=== PATIENT | male | born 1980 | race Caucasian/White ===

== ENCOUNTER → 2019-03-18 | Outpatient (CLI) | payer OTHER ==
[~2019-03-18] MED LIST: AMIT25TA9 PO; AMOX-358 PO; CEPH500C PO; CIPR500T4 PO; ESOM20CA PO; HYDR-3455 PO; IBUP800T26 PO; METR-145 PO; METR500T PO; ONDA8TAB13 PO; SULF1TAB35 PO; TRM50T PO
--- NOTE | 2019-03-18 10:20 | Diagnostic Imaging Report ---
PATIENT HISTORY: RIGHT HIP PAIN. TECHNIQUE: 2 views of the right hip COMPARISON: None FINDINGS: No acute fracture or dislocation is seen in the right hip. Alignment appears normal. Joint spaces are preserved. IMPRESSION: No acute osseous abnormality is seen in the right hip. Dictated by: Dictated on workstation # [id number]
== END ==
LOC: RAD FS 09:31
PROVIDERS: ATTEND Nurse Practitioner Family
DX: M25.551 Pain in right hip (principal)
CPT/HCPCS: 73502

== ENCOUNTER 2019-09-29 08:41 | Emergency (ER) | payer OTHER ==
[~2019-09-29] VITALS: Ht 177.8 cm; Wt 76.0 kg
[2019-09-29 08:43] VITALS: BP 117/72
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
--- OUTSIDE RECORDS SUMMARY | 2019-09-29 08:46 | XMS REPORT ---
Author Author Duane Lopez Organization [facility] Address [address] [place] [address] Care Team Providers Care Surface Water Technician Name Role Phone HUANG Lopez Unavailable PROBLEMS Type Condition ICD9-CM Code UQH71-SN Code Onset Dates Condition S tatus SNOMED Code Problem GERD (gastroesophageal reflux disease) K21.9 Active 145923305 Problem Anxiety F41.9 Active 44071781 Problem Cigarette nicotine dependence without complication F17.210 Active 19837314 Problem Cigarette nicotine dependence without complication F17.210 Active 80143578 Problem Insomnia G47.00 Active 374468389 Problem Depression F32.9 Active 898820372 Problem Paradoxical insomnia F51.03 Active 431138673 Problem Psoriasis L40.9 Active 3853641 ALLERGIES No Information ENCOUNTERS Encounter Location Date Diagnosis [address] [id number] [address] Jun, Paradoxical insomnia F51.03 and Anxiety F41.[address] [id number] [address] Jun, [address] [id number] [address] May, [address] [id number], [place] [address] May, [address] [id number] [address] May, Paradoxical insomnia F51.03 and Eczema, dyshidrotic L30.[address] [id number] [address] Apr, Eczema, dyshidrotic L30.1 an d Cigarette nicotine dependence without complication F17.210 [facility] [place] [address] [id number] [address] Mar, Eczema, dyshidrotic L30.1 an d Encounter for immunization Z23 [address] [id number], [place] [address] Mar, [address] [id number] [address] Mar, [address] [id number] [address] Feb, Dermatitis L30.[address] [id number] [address] Feb, [address] [id number] [address] Feb, Right hip pain M25.551 and D ermatitis L30.9 [facility] [address] [id number] [place] [address] Feb, Contact dermatitis, unspecif ied contact dermatitis type, unspecified trigger L25.9 [facility] [address] [id number] [place] [address] Nov, Pain of right eye H57.11 and Iritis H20.[address] [id number] [address] Nov, Paradoxical insomnia F51.[address] [id number] [address] September, Muscle spasm of back M62.830 [facility] [address] [facility] [id number] [address] [place] [address] Apr, Insomnia G47.00 ; Anxiety F4 1.9 and GERD (gastroesophageal reflux disease) K21.9 [facility] [address] [facility] [id number] [address] [place] [address] Mar, [facility] [address] [id number] [address] [place] [address], [place] [address] Aug, [facility] [address] [id number] [address] [place] [address], [place] [address] Aug, [facility] [address] [id number] [address] [place] [address], [place] [address] Oct, [facility] [address] [id number] [address] [place] [address], [place] [address] Oct, [facility] [address] [id number] [address] [place] [address], [place] [address] Oct, [facility] [address] [id number] [address] [place] [address], [place] [address] Oct, [facility] [address] [id number] [address] [place] [address], [place] [address] Oct, [facility] [address] [id number] [address] [place] [address], [place] [address] Oct, [facility] [address] [id number] [address] [place] [address], [place] [address] Oct, [facility] [address] [id number] [address] [place] [address], [place] [address] Oct, [facility] [address] [id number] [address] [place] [address], [place] [address] September, [facility] [address] [id number] [address] [place] [address], [place] [address] September, [facility] [address] [id number] [address] [place] [address], [place] [address] September, [facility] [address] [id number] [address] [place] [address], [place] [address] September, [facility] [address] [id number] [address] [place] [address], [place] [address] September, [facility] [address] [id number] [address] [place] [address], [place] [address] September, [facility] [address] [id number] [address] [place] [address], [place] [address] Jul, [facility] [address] [id number] [address] [place] [address], [place] [address] Jul, [facility] [address] [id number] [address] [place] [address], [place] [address] Jun, [facility] [address] [id number] [address] [place] [address], [place] [address] Jun, [facility] [address] [id number] [address] [place] [address], [place] [address] Jun, [facility] [address] [id number] [address] [place] [address], [place] [address] Jun, [facility] [address] [id number] [address] [place] [address], [place] [address] Jun, [facility] [address] [id number] [address] [place] [address], [place] [address] Jun, [facility] [address] [id number] [address] [place] [address], [place] [address] May, [facility] [address] [id number] [address] [place] [address], [place] [address] May, [facility] [address] [id number] [address] [place] [address], [place] [address] May, [facility] [address] [id number] [address] [place] [address], [place] [address] May, [facility] [address] [id number] [address] [place] [address], [place] [address] May, [facility] [address] [id number] [address] [place] [address], [place] [address] May, [facility] [address] [id number] [address] [place] [address], [place] [address] May, [facility] [address] [id number] [address] [place] [address], [place] [address] May, [facility] [address] [id number] [address] [place] [address], [place] [address] May, [facility] [address] [id number] [address] [place] [address], [place] [address] May, [facility] [address] [id number] [address] [place] [address], [place] [address] May, [facility] [address] [id number] [address] [place] [address], [place] [address] May, [facility] [address] [id number] [address] [place] [address], [place] [address] May, [facility] [address] [id number] [address] [place] [address], [place] [address] May, [facility] [address] [id number] [address] [place] [address], [place] [address] Apr, [facility] [address] [id number] [address] [place] [address], [place] [address] Apr, [facility] [address] [id number] [address] [place] [address], [place] [address] Apr, [facility] [address] [id number] [address] [place] [address], [place] [address] Apr, [facility] [address] [id number] [address] [place] [address], [place] [address] Apr, [facility] [address] [id number] [address] [place] [address], [place] [address] Apr, [facility] [address] [id number] [address] [place] [address], [place] [address] Apr, [facility] [address] [id number] [address] [place] [address], [place] [address] 05 Apr, 2013 [facility] [address] [id number] [address] [place] [address] Mar, [facility] [address] [id number] [address] [place] [address] Mar, [facility] [address] [id number] [address] [place] [address] Mar, [facility] [address] [id number] [address] [place] [address] Mar, [facility] [address] [id number] [address] [place] [address] Mar, [facility] [address] [id number] [address] [place] [address] Dec, [facility] [address] [id number] [address] [place] [phone] Dec, [facility] [address] [id number] [address] [place] [phone] Dec, [facility] [address] [id number] [address] [place] [phone] Dec, [facility] [address] [id number] [address] [place] [address] Dec, [facility] [address] [id number] [address] [place] [phone] Nov, [facility] [address] [id number] [address] [place] [phone] Nov, [facility] [address] [id number] [address] [place] [phone] Nov, [facility] [address] [id number] [address] [place] [phone] Oct, IMMUNIZATIONS No Known Immunizations SOCIAL HISTORY Never Assessed REASON FOR VISIT PLAN OF CARE VITAL SIGNS MEDICATIONS No Known Medications RESULTS No Results PROCEDURES No Known procedures INSTRUCTIONS MEDICATIONS ADMINISTERED No Known Medications MEDICAL (GENERAL) HISTORY Type Description Date Medical History Depression Medical History GERD (gastroesophageal reflux disease) Medical History Insomnia Medical History Anxiety Hospitalization History cyst
--- OUTSIDE RECORDS SUMMARY | 2019-09-29 08:46 | XMS REPORT ---
Author Author Migration, Boutte Doctor Organization [facility] Address Unknown Phone Unavailable Care Team Providers Care Director Network Development Name Role Phone Migration, Doctor Unavailable Unavailable PROBLEMS Type Condition ICD9-CM Code ABD21-XZ Code Onset Dates Condition S tatus SNOMED Code Problem GERD (gastroesophageal reflux disease) K21.9 Active 873805603 Problem Anxiety F41.9 Active 20848922 Problem Cigarette nicotine dependence without complication F17.210 Active 70557599 Problem Cigarette nicotine dependence without complication F17.210 Active 08309178 Problem Insomnia G47.00 Active 008430552 Problem Depression F32.9 Active 617362635 Problem Paradoxical insomnia F51.03 Active 199050090 Problem Psoriasis L40.9 Active 1069377 ALLERGIES No Information ENCOUNTERS Encounter Location Date Diagnosis [address] 340 [id number] [address] Jun, Paradoxical insomnia F51.03 and Anxiety F41.[id number] [place] [address] Jun, [address] 340 [id number], [place] [address] May, [address] [id number], [place] [address] May, [address] 340 [id number], [place] [address] May, Paradoxical insomnia F51.03 and Eczema, dyshidrotic L30.[address] [id number], [place] [address] Apr, Eczema, dyshidrotic L30.1 an d Cigarette nicotine dependence without complication F17.[address] 340 [id number], [place] [address] Mar, Eczema, dyshidrotic L30.1 an d Encounter for immunization Z23 [address] 340B [id number], [place] [address] Mar, [facility] [address] 340B [id number], [place] [address] Mar, [address] 340B [id number], [place] [address] Feb, Dermatitis L30.[address] 340B [id number], [place] [address] Feb, [address] 340B [id number], [place] [address] Feb, Right hip pain M25.551 and D ermatitis L30.9 [facility] [address] 340 [id number] [address] Feb, Contact dermatitis, unspecif ied contact dermatitis type, unspecified trigger L25.9 [facility] [address] 340 [id number], [place] [address] Nov, Pain of right eye H57.11 and Iritis H20.[address] 340B [id number], [place] [address] Nov, Paradoxical insomnia F51.[address] 340 [id number], [place] [address] September, Muscle spasm of back M62.830 [facility] [address] [facility] [id number] [address] [place] [address] Apr, Insomnia G47.00 ; Anxiety F4 1.9 and GERD (gastroesophageal reflux disease) K21.9 [facility] [address] [facility] [id number] [address] [place] [address] Mar, [facility] [address] [facility] [id number] [address] [place] [address] Aug, [facility] [address] [id number] [address] [place] [address], [place] [address] Aug, [facility] [address] [id number] [address] [place] [address], [place] [address] Oct, [facility] [address] [id number] [address] [place] [address], [place] [address] Oct, [facility] [address] [id number] [address] [place] [address], [place] [address] Oct, [facility] [address] [id number] [address] [place] [address], [place] [address] Oct, [facility] [address] [id number] [address] [place] [address], [place] [address] Oct, [facility] [address] [id number] [address] [place] [address], [place] [address] Oct, [facility] [address] [id number] [address] [place] [address], [place] [address] Oct, [facility] [address] [id number] [address] [place] [address], [place] [address] Oct, [facility] [address] [id number] [address] [place] [address], [place] [address] September, [facility] [address] [id number] [address] [place] [address], [place] [address] September, [facility] [address] [id number] [address] [place] [address], [place] [address] September, [facility] [address] [id number] [address] [place] [address], [place] [address] September, [facility] [address] [id number] [address] [place] [address], [place] [address] September, [facility] [address] [id number] [address] [place] [address], [place] [address] September, [facility] [address] [id number] [address] [place] [address], [place] [address] Jul, [facility] [address] [id number] [address] [place] [address], [place] [address] Jul, [facility] [address] [id number] [address] [place] [address], [place] [address] Jun, [facility] [address] [id number] [address] [place] [address], [place] [address] Jun, [facility] [address] [id number] [address] [place] [address], [place] [address] Jun, [facility] [address] [id number] [address] [place] [address], [place] [address] Jun, [facility] [address] [id number] [address] [place] [address], [place] [address] Jun, [facility] [address] [id number] [address] [place] [address], [place] [address] Jun, [facility] [address] [id number] [address] [place] [address], [place] [address] May, [facility] [address] [id number] [address] [place] [address], [place] [address] May, [facility] [address] [id number] [address] [place] [address], [place] [address] May, [facility] [address] [id number] [address] [place] [address], [place] [address] May, [facility] [address] [id number] [address] [place] [address], [place] [address] May, [facility] [address] [id number] [address] [place] [address], [place] [address] May, [facility] [address] [id number] [address] [place] [address], [place] [address] May, [facility] [address] [id number] [address] [place] [address], [place] [address] May, [facility] [address] [id number] [address] [place] [address], [place] [address] 16 May, 2013 [facility] [address] [id number] [address] [place] [address], [place] [address] 16 May, 2013 [facility] [address] [id number] [address] [place] [address], [place] [address] 15 May, 2013 [facility] [address] [id number] [address] [place] [address], [place] [address] May, [facility] [address] [id number] [address] [place] [address], [place] [address] May, [facility] [address] [id number] [address] [place] [address], [place] [address] May, [facility] [address] [id number] [address] [place] [address], [place] [address] Apr, [facility] [address] [id number] [address] [place] [address], [place] [address] Apr, [facility] [address] [id number] [address] [place] [address], [place] [address] 24 Apr, 2013 [facility] [address] [id number] [address] [place] [address], [place] [address] Apr, [facility] [address] [id number] [address] [place] [address], [place] [address] 18 Apr, 2013 [facility] [address] [id number] [address] [place] [address], [place] [address] Apr, [facility] [address] [id number] [address] [place] [address], [place] [address] 05 Apr, 2013 [facility] [address] [id number] [address] [place] [address], [place] [address] 05 Apr, 2013 [facility] [address] [id number] [address] [place] [address], [place] [address] Mar, [facility] [address] [id number] [place] [address] Mar, [facility] [address] [id number] [address] [place] [address] Mar, [facility] [address] [id number] [address] [place] [address] Mar, [facility] [address] [id number] [address] [place] [address] Mar, [facility] [address] [id number] [address] [place] [address] Dec, [facility] [address] [id number] [address] [place] [address] Dec, [facility] [address] [id number] [address] [place] [address] Dec, [facility] [address] [id number] [address] [place] [address] Dec, [facility] [address] [id number] [address] [place] [address] Dec, [facility] [address] [id number] [address] [place] [address] Nov, [facility] [address] [id number] [address] [place] [address] Nov, [facility] [address] [id number] [address] [place] [address] Nov, [facility] [address] [id number] [address] [place] [address] Oct, IMMUNIZATIONS No Known Immunizations SOCIAL HISTORY [...]
--- OUTSIDE RECORDS SUMMARY | 2019-09-29 08:46 | XMS REPORT ---
Author Author Duane Lopez Organization [facility] Address [address] [place] [address] Care Team Providers Care [facility] Consultant Name Role Phone HUANG Lopez Unavailable PROBLEMS Type Condition ICD9-CM Code AZR65-CN Code Onset Dates Condition S tatus SNOMED Code Problem GERD (gastroesophageal reflux disease) K21.9 Active 795453814 Problem Anxiety F41.9 Active 13883070 Problem Cigarette nicotine dependence without complication F17.210 Active 75954222 Problem Cigarette nicotine dependence without complication F17.210 Active 90756230 Problem Insomnia G47.00 Active 615191067 Problem Depression F32.9 Active 263611611 Problem Paradoxical insomnia F51.03 Active 460216655 Problem Psoriasis L40.9 Active 6114594 ALLERGIES No Information ENCOUNTERS Encounter Location Date Diagnosis [address] [id number] [address] Jun, Paradoxical insomnia F51.03 and Anxiety F41.[address] [id number], [place] [address] Jun, [address] 340 [id number], [place] [address] May, [address] 340B [id number], [place] [address] May, [address] [id number] [address] May, Paradoxical insomnia F51.03 and Eczema, dyshidrotic L30.[address] 340B [id number], [place] [address] Apr, Eczema, dyshidrotic L30.1 an d Cigarette nicotine dependence without complication F17.210 [facility] [address] 340B [id number], [place] [address] Mar, Eczema, dyshidrotic L30.1 an d Encounter for immunization Z23 [address] 340B [id number], [place] [address] Mar, [address] 340B [id number], [place] [address] Mar, [address] 340B [id number], [place] [address] Feb, Dermatitis L30.[address] 340 [id number], [place] [address] Feb, [address] 340B [id number], [place] [address] Feb, Right hip pain M25.551 and D ermatitis L30.9 [facility] [address] 340 [id number] [place] [address] Feb, Contact dermatitis, unspecif ied contact dermatitis type, unspecified trigger L25.9 [facility] [address] 340 [id number] [place] [address] Nov, Pain of right eye H57.11 and Iritis H20.[address] 340 [id number], [place] [address] Nov, Paradoxical insomnia F51.[address] 340B [id number], [place] [address] September, Muscle spasm of back M62.830 [facility] [address] [facility] [id number] [address] [place] [address] Apr, Insomnia G47.00 ; Anxiety F4 1.9 and GERD (gastroesophageal reflux disease) K21.9 [facility] [address] [facility] [id number] [address] [place] [address] Mar, [facility] [address] [id number] [address] [place] [address], [place] [address] Aug, [facility] [address] [id number] [address] [place] [address], [place] [address] Aug, [facility] [address] [id number] [address] [place] [address], [place] [address] Oct, [facility] [address] [id number] [address] [place] [address], [place] [address] Oct, [facility] [address] [id number] [address] [place] [address], [place] [address] Oct, [facility] [address] [id number] [address] [place] [address], [place] [address] Oct, [facility] [address] [id number] [address] [place] [address], [place] [address] Oct, [facility] [address] [id number] [address] [place] [address], [place] [address] Oct, [facility] [address] [id number] [address] [place] [address], [place] [address] Oct, [facility] [address] [id number] [address] [place] [address], [place] [address] Oct, [facility] [address] [id number] [address] [place] [address], [place] [address] September, [facility] [address] [id number] [address] [place] [address], [place] [address] September, [facility] [address] [id number] [address] [place] [address], [place] [address] September, [facility] [address] [id number] [address] [place] [address], [place] [address] September, [facility] [address] [id number] [address] [place] [address], [place] [address] September, [facility] [address] [id number] [address] [place] [address], [place] [address] September, [facility] [address] [id number] [address] [place] [address], [place] [address] Jul, [facility] [address] [id number] [address] [place] [address], [place] [address] Jul, [facility] [address] [id number] [address] [place] [address], [place] [address] Jun, [facility] [address] [id number] [address] [place] [address], [place] [address] Jun, [facility] [address] [id number] [address] [place] [address], [place] [address] Jun, [facility] [address] [id number] [address] [place] [address], [place] [address] Jun, [facility] [address] [id number] [address] [place] [address], [place] [address] Jun, [facility] [address] [id number] [address] [place] [address], [place] [address] Jun, [facility] [address] [id number] [address] [place] [address], [place] [address] May, [facility] [address] [id number] [address] [place] [address], [place] [address] May, [facility] [address] [id number] [address] [place] [address], [place] [address] May, [facility] [address] [id number] [address] [place] [address], [place] [address] May, [facility] [address] [id number] [address] [place] [address], [place] [address] May, [facility] [address] [id number] [address] [place] [address], [place] [address] May, [facility] [address] [id number] [address] [place] [address], [place] [address] May, [facility] [address] [id number] [address] [place] [address], [place] [address] May, [facility] [address] [id number] [address] [place] [address], [place] [address] May, [facility] [address] [id number] [address] [place] [address], [place] [address] May, [facility] [address] [id number] [address] [place] [address], [place] [address] May, [facility] [address] [id number] [address] [place] [address], [place] [address] May, [facility] [address] [id number] [address] [place] [address], [place] [address] May, [facility] [address] [id number] [address] [place] [address], [place] [address] May, [facility] [address] [id number] [address] [place] [address], [place] [address] Apr, [facility] [address] [id number] [address] [place] [address], [place] [address] Apr, [facility] [address] [id number] [address] [place] [address], [place] [address] Apr, [facility] [address] [id number] [address] [place] [address], [place] [address] Apr, [facility] [address] [id number] [address] [place] [address], [place] [address] Apr, [facility] [address] [id number] [address] [place] [address], [place] [address] Apr, [facility] [address] [id number] [address] [place] [address], [place] [address] Apr, [facility] [address] [id number] [address] [place] [address], [place] [address] 05 Apr, 2013 [facility] [address] [id number] [address] [place] [address] Mar, [facility] [address] [id number] [address] [place] [address] Mar, [facility] [address] [id number] [address] [place] [address] Mar, [facility] [address] [id number] [address] [place] [address] Mar, [facility] [address] [id number] [address] [place] [address] Mar, [facility] [address] [id number] [address] [place] [id number] Dec, [facility] [address] [id number] [address] [place] [address] Dec, [facility] [address] [id number] [address] [place] [address] Dec, [facility] [address] [id number] [address] [place] [address] Dec, [facility] [address] [id number] [address] [place] [address] Dec, [facility] [address] [id number] [address] [place] [id number] Nov, [facility] [address] [id number] [address] [place] [id number] Nov, [facility] [address] [id number] [address] [place] [id number] Nov, [facility] [address] [id number] [address] [place] [id number] Oct, IMMUNIZATIONS No Known Immunizations SOCIAL HISTORY Never Assessed REASON FOR VISIT PLAN OF CARE VITAL SIGNS MEDICATIONS No Known Medications RESULTS No Results PROCEDURES Procedure Date Ordered Result Body Site X-RAY EXAM OF LOWER SPINE Jun 17, 2013 INSTRUCTIONS MEDICATIONS ADMINISTERED No Known Medications MEDICAL (GENERAL) HISTORY Type Description Date Medical History Depression Medical History GERD (gastroesophageal reflux disease) Medical History Insomnia Medical History Anxiety Hospitalization History cyst
--- OUTSIDE RECORDS SUMMARY | 2019-09-29 08:46 | XMS REPORT ---
Author Author [employer]. Organization [employer] Address [address] [address] Care Team Providers Care Bricklayer Supervisor Name Role Phone FAUSTINO HILL Unavailable Unavailable RICHARD CARRIZALES Unavailable Unavailable NO, LOCAL PHYSICIAN Unavailable Unavailable SELF, SHANEKA Unavailable Migration, Doctor Unavailable Unavailable Migration, Doctor Unavailable Unavailable Migration, Doctor Unavailable Unavailable Migration, Doctor Unavailable Unavailable Migration, Doctor Unavailable Unavailable Migration, Doctor Unavailable Unavailable zNAKUL GonzalezE Unavailable Unavailable NAKUL CARRIZALESE Unavailable Unavailable Migration, Doctor Unavailable Unavailable PCP, LAPSED Unavailable Unavailable Migration, Doctor Unavailable Unavailable zzSANCHEZ, HUANG Unavailable ANDREW PRADHAN APRN Unavailable Unavailable ERIN JARVIS, ROSSY George Unavailable Unavailable IVY DOS SANTOS, AL Pelletier Unavailable Unavailable SELF, SHANEKA J Unavailable Unavailable DARIA JARVIS, TARCEY Napoles Unavailable Unavailable SUKHDEV DOS SANTOS, ADRYAN George Unavailable Unavailable Migration, Doctor Unavailable Unavailable Migration, Doctor Unavailable Unavailable zzSANCHEZ, HUANG Unavailable zzSANCHEZ, HUANG Unavailable zzSANCHEZ, HUANG Unavailable Migration, Doctor Unavailable Unavailable zzSANCHEZ, HUANG Unavailable zzSANCHEZ, HUANG Unavailable GERARDO, JENIFER Unavailable JOSELYN, ARIELLE Unavailable zzSANCHEZ, HUANG Unavailable JOSELYN, ARIELLE Unavailable zzSANCHEZ, HUANG Unavailable Migration, Doctor Unavailable Unavailable zzSANCHEZ, HUANG Unavailable zzSANCHEZ, HUANG Unavailable Allergies Normalized Allergy Reported Date of Reaction(s) Care Provider Facility Allergy Type classification allergen Allergy Onset DA (1 source.) Unclassified No Known Drug 05-26-2013 - no inform stephani PRADHAN [facility] Via Allergies [facility] ([id number]) Medications The data below is from unstructured sources No Known Medications No Known Medications No Known Medications No Known Medications No Known Medications No Known Medications No Known Medications No Known Medications No Known Medications No Known Medications No Known Medications No Known Medications No Known Medications No Known Medications No Known Medications Unknown Medications Unknown Medications Unknown Medications Unknown Medications Unknown Medications Unknown Medications No Known Medications No Known Medications No Known Medications No Known Medications No Known Medications No Known Medications No Known Medications No Known Medications No Known Medications No Known Medications No Known Medications No Known Medications No Known Medications No Known Medications No Known Medications No Known Medications No Known Medications No Known Medications No Known Medications No Known Medications No Known Medications No Known Medications No Known Medications No Known Medications No Known Medications No Known Medications No Known Medications No Known Medications No Known Medications No Known Medications No Known Medications No Known Medications No Known Medications Problems Active Problems Problem Normalized Date of Normalized Normalized Provider Fac ility Classification Problem(s) Problem Problem Problem Sta tus Onset/Resoluti Duration on Other Long-term Episodic Active AL HAYNES [facility] Via aftercare (4 (current) use MD Billy sources.) of other Hospital - medications [place] ([id number]) Other skin Personal Episodic Active TRACEY [facility] Via disorders (3 history of MATHEUS HUFF [facility] sources.) diseases of Hospital - the skin and [place] subcutaneous (90693) tissue Spondylosis; Spondylosis, Chronic Active AL HAYNES V Via intervertebral unspecified MD Billy disc Translations: Hospital - disorders; [ LUMBOSACRAL [place] other back SPONDYLOSIS] (75652) problems (7 sources.) Past or Other Problems Problem Normalized Date of Normalized Normalized Provider Fac ility Classification Problem(s) Problem Problem Problem Sta tus Onset/Resoluti Duration on Abdominal pain Abdominal Episodic Completed ROSSY KHAN Not Available (1 source.) pain, left , [place] ([address]) lower quadrant Other Care involving Episodic Completed ARIELLE ALVES No t Available aftercare (1 other physical (62542) source.) therapy Other diseases Unspecified Episodic Completed HUANG HOWARD N ot Available of kidney and disorder of (90661) ureters (1 kidney and source.) ureter Procedures Procedure Normalized Procedure Procedure Result Performer Facility Date 10-02-2013 Ecg routine ecg no information no name (no phone) [facility] w/least [address] [facility] w/o i&r [place] ([id number]) 11-08-2013 Mri spinal canal no information no name (no phone) [facility] lumbar w/o contrast [facility] ([id number]) 06-17-2013 [facility] spine no information no name (no phone) [facility] lumbosacral 2/3 views [facility] ([id number]) Immunizations Normalized Immunization Date Notes Care Provider Facili ty Immunization influenza, seasonal, 04-23-2019 no information no name [facility] injectable [facility] ([id number]) Results The data below is from unstructured sourcesNo Known Results No known relevant diagnostic tests, laboratory data and/or discharge summary.No known relevant diagnostic tests, laboratory data and/or discharge summary. No Results No Results No Results No Results No Results No Results No Results No Results No Results No Results No Results No Results No Results No Results No Results No Results No Results No Results No Results No Results No Results No Results No Results No Results No Results No Results No Results No Results No Results No Results Vital Signs Vital Sign Value Interpretation Reference Date Time Care Prov ider Facility (Normalized) (Normalized) Range Body height 177.8 cm (no code) cm 10-02-2013 HU[facility] 11:32-[address] ([id number]) Body height 177.8 cm (no code) cm 06-13-2013 ARIELLE FERNANDEZ [facility] 16:38-[address] [place] [address] ([id number]) Body 98.6 [degF] (no code) 97.8 - 99.0 11-08-2013 [facility] Temperature [degF] 17:43-0400 [facility] ([id number]) Body 97.8 [degF] (no code) 97.8 - 99.0 10-02-2013 [facility] 11:32-[address] ([id number]) Body 97.6 [degF] (no code) 97.8 - 99.0 06-13-2013 ARIELLE BENITEZ [facility] temperature [degF] 16:38-[address] [place] [address] ([id number]) Body weight 97.93 kg (no code) kg 11-08-2013 Doctor Com munity 17:43-0400 [facility] ([id number]) Body weight 79.84 kg (no code) kg 10-02-2013 HUANG [facility] 11:32-[address] ([id number]) Body weight 76.66 kg (no code) kg 06-13-2013 ARIELLE FERNANDEZ [facility] 16:38-[address] [place] [address] ([id number]) Height 177.8 cm (no code) cm 11-08-2013 Doctor Commun [facility] 17:43-0400 [facility] ([id number]) Interventions No Information Plan of Treatment The data below is from unstructured sources Discharge Date 05/23/15 2:47pm Instructions/Education Provided Absc ess Incision and Drainage (DC) Abscess (GEN) Prescriptions See Medication Section Discharge Date 05/23/15 2:47pm Disposition 01 HOME, SELF-CARE Instructions/Education Provided Absc ess Incision and Drainage (DC) Abscess (GEN) Forms Provided Follow-Up Fax [facility]I Surgical Prescriptions See Medication Section Referrals (Unspecified) - Reason(s) for Referral: Follow-up with DR SANTIZO on Monday, 01 June Care Plan and Goals See Discharge In structions Section Discharge Date 09/25/17 1:14pm Disposition 01 HOME, SELF-CARE Condition at Discharge Improved Instructions/Education Provided Anal Abscess and Fistula (DC) Cellulitis (Skin Infection), Adult (DC) Prescriptions See Medication Section Referrals YUNIER LASSITER DO Address: [address] [place], [place] [address] SHANEKA ROMERO MD Order Date: Primary Care Physician Address: [address] [place] [address] [phone] Note: SHANEKA ROMERO MD Order Date: Primary Care Physician Address: [address] [place] [phone] Note: Additional Instructions/Education Al l discharge instructions reviewed with patient and/or family. Voiced understanding. Medications as instructed. Continue her usual medications including the hydrocodone for pain. Ibuprofen 800 mg by mouth every 8 hours as needed for pain. Follow-up with Dr. Lassiter as an outpatient for recheck, call today for appointment time. You may do sitz baths as needed for pain and swelling. Colace stool softener [id number] as directed for constipation. MiraLAX [id number] as directed. Return to the emergency department for worsened symptoms or any other concerns. Goals No Information Social History No Information Functional Status The data below is from unstructured sources Query Response Date Jose Manuel rded Patient Orientation Person Place Time Situation Eyes Open May 26, 2015 11:11am Comprehension Ability Understands Co ncepts May 22, 2015 10:50pm Query Response Date Jose Manuel rded Patient Orientation Person Place Time Situation Eyes Open May 23, 2015 2:57pm Comprehension Ability Understands Co ncepts May 22, 2015 10:50pm Mental Status No Information Encounters Encounter Normalized Encounter Encounter Diagnosis Care Provi radha Organization Date Type 09-25-2017 Emergency department no information no name (no ryley ne) no organization name - patient visit (no phone) 09-25-2017 05-26-2013 Emergency department no information no name (no ryley ne) no organization name - patient visit (no phone) 05-26-2013 05-22-2015 Patient encounter no information no name (no phone) no organization name - (no phone) 05-23-2015 11-20-2013 Patient encounter no information no name (no phone) no organization name (no phone) 07-25-2013 Patient encounter no information no name (no phone) no organization name - (no phone) 08-27-2013 04-24-2013 Patient encounter no information no name (no phone) no organization name (no phone) 01-07-2013 Patient encounter no information no name (no phone) no organization name (no phone) 07-18-2019 Patient encounter no information SHANEKA ROMERO (no [facility] procedure phone) [facility] (no phone) 05-09-2019 Patient encounter no information no name (no phone) no organization name procedure (no phone) 04-23-2019 Patient encounter no information no name (no phone) no organization name procedure (no phone) 03-18-2019 Patient encounter no information no name (no phone) no organization name procedure (no phone) 03-18-2019 Patient encounter no information no name (no phone) no organization name procedure (no phone) 12-25-2018 Patient encounter no information no name (no phone) no organization name procedure (no phone) 12-25-2018 Patient encounter no information no name (no phone) no organization name procedure (no phone) 12-13-2018 Patient encounter no information no name (no phone) no organization name procedure (no phone) 10-15-2018 Patient encounter no information no name (no phone) no organization name procedure (no phone) 05-22-2015 Patient encounter no information no name (no phone) no organization name - procedure (no phone) 05-23-2015 11-20-2013 Patient encounter no information no name (no phone) no organization name procedure (no phone) Medical Equipment No Information Payers No Information History general Narrative - Reported Note Type Note Facility History general Narrative - Reported Type Medical Depression History Medical GERD (gastroesophageal refl ux disease) History Medical Insomnia History Medical Anxiety History Hospitaliz cyst ation History [facility] ([id number]) Summary Purpose eClinicalWorks SubmissioneClinicalWorks Submission Advance Directives Directive Response Recor ded Date/Time Advance Directives No 11:02pm Health Care Power of Sales Support Technician No 05/22/15 11:02pm Organ Donor Yes 05/22/15 11:02pm Resuscitation Status Full Code 05/22/15 11:02pm Directive Response Recor ded Date/Time Advance Directives No 12:10pm Health Care Power of Sales Support Technician No 01/13/14 12:10pm Organ Donor No 01/13/14 12:10pm Resuscitation Status Full Code 01/13/14 12:10pm Directive Response Recor ded Date/Time Advance Directives No 11:32am Health Care Power of Sales Support Technician No 09/25/17 11:32am Organ Donor Yes 09/25/17 11:32am Resuscitation Status Full Code 09/25/17 11:32am Discharge Instructions Patient Instructions Physician Instructions New, Converted or Re-Newed RX: RX on Chart Plan of Care/Instructions/FU: September shower. Change dressing with a ABD as needed. Follow-up with me on Monday, 01 June Activity as Tolerated: Yes Discharge Diet: No Restrictions Care Plan Patient Instructions:: May shower. Change dressing with a ABD as needed. Follow-up with me may Patient Instructions Physician Instructions New, Converted or Re-Newed RX: RX on Chart Plan of Care/Instructions/FU: September shower. Change dressing with a ABD as needed. Follow-up with me on May Activity as Tolerated: Yes Discharge Diet: No Restrictions Care Plan Patient Instructions:: September shower. Change dressing with a ABD as needed. Follow-up with me may No hospital discharge instructions.No hospital discharge instruction information available.No hospital discharge instruction information available. Additional Source Comments This clinical document has been generated using [employer] software that has been certified by the Office of the National Coordinator for Health Information Technology (ONC 15.99.04.3023.Diam.31.00.0.926655) and the National Committee for [employer] (NCQA, as an eMeasure certified technology). FOR RECORDS PERTAINING TO PATIENTS WHO ARE OR HAVE BEEN ENROLLED IN A CHEMICAL D EPENDENCY/SUBSTANCE ABUSE PROGRAM, SOME INFORMATION MAY BE OMITTED. This clinica l summary was aggregated from multiple sources. Caution should be exercised in using it in the provision of clinical care. This summary normalizes information from multiple sources, and as a consequence, information in this document may ma terially change the coding, format and clinical context of patient data. In nicholas tion, data may be omitted in some cases. CLINICAL DECISIONS SHOULD BE BASED ON T HE PRIMARY CLINICAL RECORDS. [employer] provides no warranty or guara ntee of the accuracy or completeness of information in this document.The followi information is based on time limited clinical information UNRECOGNIZED CONTENT PROVIDED BELOW FOR UNRECOGNIZED SECTION REASON FOR VISIT [id number] UNRECOGNIZED CONTENT PROVIDED BELOW FOR UNRECOGNIZED SECTION MEDICAL (GENERAL) HISTORY Type Description Date Medical History Depression Medical History GERD (gastroesophage al reflux disease) Medical History Insomnia Medical History Anxiety
--- OUTSIDE RECORDS SUMMARY | 2019-09-29 08:46 | XMS REPORT ---
Author Author Duane Lopez Organization [facility] Address [address] [place] [address] Care Team Providers Care Tour Coordinator Name Role Phone HUANG Lopez Unavailable PROBLEMS Type Condition ICD9-CM Code [id number] Code Onset Dates Condition S tatus SNOMED Code Problem GERD (gastroesophageal reflux disease) K21.9 Active 997131835 Problem Anxiety F41.9 Active 65417602 Problem Cigarette nicotine dependence without complication F17.210 Active 97035933 Problem Cigarette nicotine dependence without complication F17.210 Active 96128198 Problem Insomnia G47.00 Active 728490319 Problem Depression F32.9 Active 179467728 Problem Paradoxical insomnia F51.03 Active 574646792 Problem Psoriasis L40.9 Active 1803640 ALLERGIES No Information ENCOUNTERS Encounter Location Date Diagnosis [address] [id number] [address] Jun, Paradoxical insomnia F51.03 and Anxiety F41.[address] [id number], [place] [address] Jun, [address] [id number], [place] [address] May, [address] [id number], [place] [address] May, [address] [id number], [place] [address] May, Paradoxical insomnia F51.03 and Eczema, dyshidrotic L30.[address] [place], [place] [address] Apr, Eczema, dyshidrotic L30.1 an d Cigarette nicotine dependence without complication F17.210 [facility] [place] [address] [id number], [place] [address] Mar, Eczema, dyshidrotic L30.1 an d Encounter for immunization Z23 [address] [id number], [place] [address] Mar, [address] [id number], [place] [address] Mar, [address] [id number], [place] [address] Feb, Dermatitis L30.[address] [id number], [place] [address] Feb, [address] [id number], [place] [address] Feb, Right hip pain M25.551 and D ermatitis L30.9 [facility] WALK IN [facility] [address] [id number] [place] [address] Feb, Contact dermatitis, unspecif ied contact dermatitis type, unspecified trigger L25.9 [facility] WALK IN [facility] [address] [id number] [place] [address] Nov, Pain of right eye H57.11 and Iritis H20.[address] [id number], [place] [address] Nov, Paradoxical insomnia F51.[address] [id number], [place] [address] September, Muscle spasm of back M62.830 [facility] [address] [facility] [id number] [address] [place] [address] Apr, Insomnia G47.00 ; Anxiety F4 1.9 and GERD (gastroesophageal reflux disease) K21.9 [facility] [address] [facility] [id number] [address] [place] [address] Mar, [facility] [address] [id number] [address] [place] [address], [place] [address] Aug, [facility] [address] [id number] [address] [place] [address], [place] [address] Aug, [facility] [address] [id number] [address] [place] [address], [place] [address] Oct, [facility] [place] [facility] [address] [id number] [address] [place] [address], [place] [address] Oct, [facility] [address] [id number] [address] [place] [address], [place] [address] Oct, [facility] [address] [id number] [address] [place] [address], [place] [address] Oct, [facility] [address] [id number] [address] [place] [address], [place] [address] Oct, [facility] [address] [id number] [address] [place] [address], [place] [address] Oct, [facility] [address] [id number] [address] [place] [address], [place] [address] Oct, [facility] [address] [id number] [address] [place] [address], [place] [address] Oct, [facility] [address] [id number] [address] [place] [address], [place] [address] September, [facility] [address] [id number] [address] [place] [address], [place] [address] September, [facility] [place] [facility] [address] [id number] [address] [place] [address], [place] [address] September, [facility] [place] [facility] [address] [id number] [address] [place] [address], [place] [address] September, [facility] [place] [facility] [address] [id number] [address] [place] [address], [place] [address] September, [facility] [place] [facility] [address] [id number] [address] [place] [address], [place] [address] September, [facility] [address] [id number] [address] [place] [address], [place] [address] Jul, [facility] [address] [id number] [address] [place] [address], [place] [address] Jul, [facility] [address] [id number] [address] [place] [address], [place] [address] Jun, [facility] [address] [id number] [address] [place] [address], [place] [address] Jun, [facility] [address] [id number] [address] [place] [address], [place] [address] Jun, [facility] [address] [id number] [address] [place] [address], [place] [address] Jun, [facility] [address] [id number] [address] [place] [address], [place] [address] Jun, [facility] [address] [id number] [address] [place] [address], [place] [address] Jun, [facility] [address] [id number] [address] [place] [address], [place] [address] May, [facility] [address] [id number] [address] [place] [address], [place] [address] May, [facility] [address] [id number] [address] [place] [address], [place] [address] May, [facility] [address] [id number] [address] [place] [address], [place] [address] May, [facility] [address] [id number] [address] [place] [address], [place] [address] May, [facility] [address] [id number] [address] [place] [address], [place] [address] May, [facility] [address] [id number] [address] [place] [address], [place] [address] May, [facility] [address] [id number] [address] [place] [address], [place] [address] May, [facility] [address] [id number] [address] [place] [address], [place] [address] May, [facility] [address] [id number] [address] [place] [address], [place] [address] May, [facility] [address] [id number] [address] [place] [address], [place] [address] May, [facility] [address] [id number] [address] [place] [address], [place] [address] May, [facility] [address] [id number] [address] [place] [address], [place] [address] May, [facility] [address] [id number] [address] [place] [address], [place] [address] May, [facility] [address] [id number] [address] [place] [address], [place] [address] Apr, [facility] [address] [id number] [address] [place] [address], [place] [address] Apr, [facility] [address] [id number] [address] [place] [address], [place] [address] Apr, [facility] [address] [id number] [address] [place] [address], [place] [address] Apr, [facility] [address] [id number] [address] [place] [address], [place] [address] Apr, [facility] [address] [id number] [address] [place] [address], [place] [address] Apr, [facility] [address] [id number] [address] [place] [address], [place] [address] Apr, [facility] [address] [id number] [address] [place] [address], [place] [address] 05 Apr, 2013 [facility] [address] [id number] [address] [place] [address] Mar, [facility] [address] [id number] [address] [place] [address] Mar, [facility] [address] [id number] [address] [place] [address] Mar, [facility] [address] [id number] [address] [place] [address] Mar, [facility] [address] [id number] [address] [place] [address] Mar, [facility] [address] [id number] [address] [place] [address] Dec, [facility] [address] [id number] [address] [place] [address] Dec, [facility] [address] [id number] [address] [place] [address] Dec, [facility] [address] [id number] [address] [place] [address] Dec, [facility] [address] [id number] [address] [place] [address] Dec, [facility] [address] [id number] [address] [place] [address] Nov, [facility] [address] [id number] [address] [place] [address] Nov, [facility] [address] [id number] [address] [place] [address] Nov, [facility] [address] [id number] [address] [place] [address] Oct, IMMUNIZATIONS No Known Immunizations SOCIAL HISTORY [...]
--- OUTSIDE RECORDS SUMMARY | 2019-09-29 08:46 | XMS REPORT | Clinical Summary ---
Author Author [facility] Organization [facility] Address Unknown Phone Unavailable Care Team Providers Care Echocardiography Radiology Technologist Name Role Phone Self, George DOS SANTOS PCP Source Comments Some departments are not documenting in the electronic medical record. If you d o not see the information that you expected, contact Release of Information in [facility] [employer] Information Management department at [phone] for further assistan ce in locating additional records.[facility] Allergies No Known Allergies Medications Not on file Active Problems Not on file Social History Date Tobacco Use Types Packs/Day Years Used Never Assessed Sex Assigned at Date Recorded Not on file Industry Job Start Date Occupation Not on file Not on file Not on file Travel End Travel History Travel Start No recent travel history available. Last Filed Vital Signs Reading Time Taken Comments Vital Sign 115/97 10/04/2017 2:00 AM CDT Blood Pressure - - Pulse 36.7 C (98 F) 10/03/2017 8:19 PM CDT Temperature - - Respiratory Rate 96% 10/04/2017 2:00 AM CDT Oxygen Saturation - - Inhaled Oxygen Concentration 71.7 kg (158 lb) 10/03/2017 8:19 PM CDT Weight 177.8 cm (5' 10") 10/03/2017 8:19 PM CDT Height 22.67 10/03/2017 8:19 PM CDT Body Mass Index Plan of Treatment Health Maintenance Due Date Last Done Comments HIV SCREENING 08/16/1995 DTAP/TDAP VACCINES (1 - 1998 Tdap) HEPATITIS C SCREENING 1998 PHYSICAL (COMPREHENSIVE) 1998 EXAM INFLUENZA VACCINE 02/27/2020 Results Not on filefrom Last 3 Months Insurance Type Payer Benefit Subscriber ID Effective Phone Address Plan / Dates Group Indemnity [facility] xxxxxxxxx 2017-P CHOICE/CHO resent ICE PLUS [phone] [facility] [place], [place] [phone] 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
--- OUTSIDE RECORDS SUMMARY | 2019-09-29 08:47 | XMS REPORT ---
Author Author Duane Lopez Organization [facility] Address [address] [place] [address] Care Team Providers Care Industrial Garage Servicer Name Role Phone HUANG Lopez Unavailable PROBLEMS Type Condition ICD9-CM Code [id number] Code Onset Dates Condition S tatus SNOMED Code Problem GERD (gastroesophageal reflux disease) K21.9 Active 718681253 Problem Anxiety F41.9 Active 27210197 Problem Cigarette nicotine dependence without complication F17.210 Active 79940590 Problem Cigarette nicotine dependence without complication F17.210 Active 23411163 Problem Insomnia G47.00 Active 090257934 Problem Depression F32.9 Active 778411422 Problem Paradoxical insomnia F51.03 Active 763104908 Problem Psoriasis L40.9 Active 0846814 ALLERGIES No Information ENCOUNTERS Encounter Location Date Diagnosis [address] [address] Jul, [address] [address] Jun, Paradoxical insomnia F51.03 and Anxiety F41.[address] [address] Jun, [address] [address] May, [address] [address] May, [address] [address] May, Paradoxical insomnia F51.03 and Eczema, dyshidrotic L30.[address] [address] Apr, Eczema, dyshidrotic L30.1 an d Cigarette nicotine dependence without complication F17.210 [address] [place] [address] Mar, Eczema, dyshidrotic L30.1 an d Encounter for immunization Z23 [address] [place] [address] Mar, [address] [place] [address] Mar, [address] [place] [address] Feb, Dermatitis L30.9 [address] [place] [address] Feb, [address] [place] [address] Feb, Right hip pain M25.551 and D ermatitis L30.9 [facility] [address] [place] [address] Feb, Contact dermatitis, unspecif ied contact dermatitis type, unspecified trigger L25.9 [facility] WALK IN [facility] [address] [place] [address] Nov, Pain of right eye H57.11 and Iritis H20.9 [address] [place] [address] Nov, Paradoxical insomnia F51.03 [address] [place] [address] September, Muscle spasm of back M62.830 [facility] [address] [id number] [place] [address] Apr, Insomnia G47.00 ; Anxiety F41.9 and GERD (gastroesophageal reflux disease) K21.9 [facility] [id number] [place] [address] Mar, [facility] [place] [facility] [address] [facility] [id number] [facility] [place] [address] 14 Aug, 2014 [facility] [place] [facility] [address] [facility] [id number] [facility] [place] [address] Aug, [facility] [place] [facility] [address] [id number] [facility] [place] [address] Oct, [facility] [place] [facility] [address] [facility] [id number] [place] [address] Oct, [facility] [place] [facility] [address] [facility] [id number] [place] [address] Oct, [facility] [place] [facility] [address] [id number] [facility] [place] [address] Oct, [facility] [place] [facility] [address] [id number] [facility] [place] [address] Oct, [facility] [place] [facility] [address] [id number] [place] [address] Oct, [facility] [place] [facility] [address] [facility] [id number] [facility] [place] [address] Oct, [facility] [place] [facility] [address] [id number] [place] [address] Oct, [facility] [place] [facility] [address] [id number] [place] [address] September, [facility] [place] [facility] [address] [id number] [facility] [place] [address] September, [facility] [place] [facility] [address] [facility] [id number] [facility] [place] [address] September, [facility] [place] [facility] [address] [id number] [place] [address] September, [facility] [place] [facility] [address] [facility] [id number] [place] [address] September, [facility] [place] [facility] [address] [id number] [facility] [place] [address] September, [facility] [place] [facility] [address] [facility] [id number] [place] [address] Jul, [facility] [place] [facility] [address] [facility] [id number] [place] [address] Jul, [facility] [place] [facility] [address] [facility] [place] [address] Jun, [facility] [place] [facility] [address] [id number] [place] [address] Jun, [facility] [place] [facility] [address] [facility] [place] [address] Jun, [facility] [place] [facility] [address] [facility] [place] [address] Jun, [facility] [place] [facility] [address] [id number] [place] [address] Jun, [facility] [place] [facility] [address] [facility] [place] [address] Jun, [facility] [place] [facility] [address] [facility] [place] [address] May, [facility] [place] [facility] [address] [facility] [place] [address] May, [facility] [place] [facility] [address] [facility] [place] [address] May, [facility] [place] [facility] [address] [facility] [place] [address] May, [facility] [place] [facility] [address] [facility] [place] [address] May, [facility] [place] [facility] [address] [facility] [place] [address] May, [facility] [place] [facility] [address] [facility] [place] [address] May, [facility] [place] [facility] [address] [facility] [place] [address] May, [facility] [place] [facility] [address] [facility] [place] [address] May, [facility] [place] [facility] [address] [facility] [place] [address] May, [facility] [place] [facility] [address] [facility] [place] [address] May, [facility] [place] [facility] [address] [facility] [place] [address] May, [facility] [place] [facility] [address] [facility] [place] [address] May, [facility] [place] [facility] [address] [facility] [id number] [place] [address] May, [facility] [place] [facility] [address] [id number] [place] [address] Apr, [facility] [place] [facility] [address] [facility] [place] [address] Apr, [facility] [place] [facility] [address] [id number] [place] [address] 24 Apr, 2013 [facility] [place] [facility] [address] [id number] [place] [address] Apr, [facility] [place] [facility] [address] [id number] [place] [address] Apr, [facility] [place] [facility] [address] [id number] [place] [address] Apr, [facility] [place] [facility] [address] [id number] [place] [address] 05 Apr, 2013 [facility] [place] [facility] [address] [facility] [place] [address] Apr, [facility] [place] [facility] [address] [facility] [place] [address] Mar, [facility] [place] [facility] [address] [id number] [place] [address] Mar, [facility] [place] [facility] [address] [facility] [place] [address] Mar, [facility] [place] [facility] [address] [id number] [place] [address] Mar, [facility] [address] [id number] [place] [address] Mar, [facility] [address] [facility] [place] [address] Dec, [facility] [id number] [place] [address] Dec, [facility] [id number] [place] [address] Dec, [facility] [id number] [place] [address] Dec, [facility] [id number] [place] [address] Dec, [facility] [id number] [place] [address] Nov, [facility] [id number] [place] [address] Nov, [facility] [address] [facility] [place] [address] Nov, [facility] [id number] [place] [address] Oct, IMMUNIZATIONS No Known Immunizations SOCIAL HISTORY Never Assessed REASON FOR VISIT PLAN OF CARE VITAL SIGNS MEDICATIONS Unknown Medications RESULTS No Results PROCEDURES No Known procedures INSTRUCTIONS MEDICATIONS ADMINISTERED No Known Medications MEDICAL (GENERAL) HISTORY Type Description Date Medical History Depression Medical History GERD (gastroesophageal reflux disease) Medical History Insomnia Medical History Anxiety Hospitalization History cyst
--- OUTSIDE RECORDS SUMMARY | 2019-09-29 08:47 | XMS REPORT ---
Author Author Migration, [place] Doctor Organization [facility] Address Unknown Phone Unavailable Care Team Providers Care Image Editor Name Role Phone Migration, Doctor Unavailable Unavailable PROBLEMS Type Condition ICD9-CM Code MEH27-EQ Code Onset Dates Condition S tatus SNOMED Code Problem GERD (gastroesophageal reflux disease) K21.9 Active 818019312 Problem Anxiety F41.9 Active 28832307 Problem Cigarette nicotine dependence without complication F17.210 Active 08427985 Problem Cigarette nicotine dependence without complication F17.210 Active 70365764 Problem Insomnia G47.00 Active 153561731 Problem Depression F32.9 Active 874266580 Problem Paradoxical insomnia F51.03 Active 719097839 Problem Psoriasis L40.9 Active 0186321 ALLERGIES No Information ENCOUNTERS Encounter Location Date Diagnosis [address] [address] Jul, [address] [address] Jun, Paradoxical insomnia F51.03 [address] [address] Jun, [address] [address] May, [address] [address] May, [address] [address] May, Paradoxical insomnia F51.03 and Eczema, dyshidrotic L30.1 [address] [place] [address] Apr, Eczema, dyshidrotic L30.1 an d Cigarette nicotine dependence without complication F17.210 [address] [place] [address] Mar, Eczema, dyshidrotic L30.1 an d Encounter for immunization Z23 [facility] ERIKA BURKS [address] [place] [address] Mar, [facility] ERIKA [address] [place] [address] Mar, [address] [place] [address] Feb, Dermatitis L30.9 [address] [place] [address] Feb, [address] [place] [address] Feb, Right hip pain M25.551 and D ermatitis L30.9 [facility] [address] [place] [address] Feb, Contact dermatitis, unspecif ied contact dermatitis type, unspecified trigger L25.9 [facility] WALK IN [facility] [address] [place] [address] Nov, Pain of right eye H57.11 and Iritis H20.[address] [place] [address] Nov, Paradoxical insomnia F51.03 [address] [place] [address] September, Muscle spasm of back M62.830 [facility] [id number] [place] [address] Apr, Insomnia G47.00 ; Anxiety F41.9 and GERD (gastroesophageal reflux disease) K21.9 [facility] [address] [id number] [place] [address] Mar, [facility] [address] [address] Aug, [facility] [address] [id number] [place] [address] Aug, [facility] [address] [id number] [place] [address] Oct, [facility] [address] [id number] [place] [address] Oct, [facility] [address] [id number] [place] [address] Oct, [facility] [address] [facility] [id number] [place] [address] Oct, [facility] [address] [id number] [place] [address] Oct, [facility] [address] [id number] [place] [address] Oct, [facility] [address] [id number] [place] [address] Oct, [facility] [address] [id number] [place] [address] Oct, [facility] [address] [id number] [place] [address] September, [facility] [address] [id number] [place] [address] September, [facility] [address] [id number] [place] [address] September, [facility] [address] [id number] [place] [address] September, [facility] [address] [id number] [place] [address] September, [facility] [address] [id number] [place] [address] September, [facility] [address] [id number] [place] [address] Jul, [facility] [address] [id number] [place] [address] Jul, [facility] [address] [facility] [id number] [place] [address] Jun, [facility] [address] [facility] [id number] [place] [address] Jun, [facility] [address] [id number] [place] [address] Jun, [facility] [address] [id number] [place] [address] Jun, [facility] [address] [facility] [id number] [place] [address] Jun, [facility] [address] [id number] [place] [address] Jun, [facility] [address] [id number] [place] [address] May, [facility] [address] [id number] [place] [address] May, [facility] [address] [id number] [place] [address] May, [facility] [address] [id number] [place] [address] May, [facility] [address] [id number] [place] [address] May, [facility] [address] [id number] [place] [address] May, [facility] [address] [facility] [id number] [place] [address] May, [facility] [address] [id number] [place] [address] May, [facility] [address] [id number] [place] [address] May, [facility] [address] [id number] [place] [address] May, [facility] [address] [id number] [place] [address] May, [facility] [address] [id number] [place] [address] May, [facility] [address] [id number] [place] [address] May, [facility] [address] [id number] [place] [address] May, [facility] [address] [id number] [place] [address] Apr, [facility] [address] [id number] [place] [address] Apr, [facility] [address] [id number] [place] [address] Apr, [facility] [address] [id number] [place] [address] Apr, [facility] [address] [id number] [place] [address] Apr, [facility] [address] [id number] [place] [address] Apr, [facility] [address] [id number] [place] [address] Apr, [facility] [address] [id number] [place] [address] Apr, [facility] [address] [id number] [place] [address] Mar, [facility] [address] [id number] [place] [address] Mar, [facility] [address] [id number] [place] [address] Mar, [facility] [address] [id number] [place] [address] Mar, [facility] [address] [id number] [place] [address] Mar, [facility] [address] [id number] [place] [address] Dec, [facility] [address] [id number] [place] [address] Dec, [facility] [address] [id number] [place] [address] Dec, [facility] [id number] [place] [address] Dec, [facility] [id number] [place] [address] Dec, [facility] [id number] [place] [address] Nov, [facility] [id number] [place] [address] Nov, [facility] [id number] [place] [address] Nov, [facility] [address] [id number] [place] [address] Oct, IMMUNIZATIONS No Known Immunizations SOCIAL HISTORY [...]
--- OUTSIDE RECORDS SUMMARY | 2019-09-29 08:47 | XMS REPORT ---
Author Author Duane ALVES Organization [facility] Address [address] [place] [address] Care Team Providers Care Inside Outside Sales Representative Name Role Phone ARIELLE ALVES Unavailable PROBLEMS Type Condition ICD9-CM Code DAR10-ED Code Onset Dates Condition S tatus SNOMED Code Problem GERD (gastroesophageal reflux disease) K21.9 Active 729073678 Problem Anxiety F41.9 Active 81719258 Problem Cigarette nicotine dependence without complication F17.210 Active 33311522 Problem Cigarette nicotine dependence without complication F17.210 Active 43547250 Problem Insomnia G47.00 Active 793700902 Problem Depression F32.9 Active 169135253 Problem Paradoxical insomnia F51.03 Active 795284787 Problem Psoriasis L40.9 Active 9321820 ALLERGIES No Information ENCOUNTERS Encounter Location Date Diagnosis [address] [address] Jun, Paradoxical insomnia F51.03 and Anxiety F41.9 [address] [address] Jun, [address] [place] [address] May, [address] [address] May, [address] [address] May, Paradoxical insomnia F51.03 and Eczema, dyshidrotic L30.1 [address] [address] Apr, Eczema, dyshidrotic L30.1 an d Cigarette nicotine dependence without complication F17.[address] [place] [address] Mar, Eczema, dyshidrotic L30.1 an d Encounter for immunization Z23 [address] [place] [address] Mar, [address] [place] [address] Mar, [address] [place] [address] Feb, Dermatitis L30.9 [address] [place] [address] Feb, [address] [place] [address] Feb, Right hip pain M25.551 and D ermatitis L30.9 [facility] [address] [place] [address] Feb, Contact dermatitis, unspecif ied contact dermatitis type, unspecified trigger L25.9 [facility] [address] [place] [address] Nov, Pain of right eye H57.11 and Iritis H20.[address] [place] [address] Nov, Paradoxical insomnia F51.03 [address] [place] [address] September, Muscle spasm of back M62.830 [facility] [address] [address] Apr, Insomnia G47.00 ; Anxiety F41.9 and GERD (gastroesophageal reflux disease) K21.9 [facility] [address] [address] Mar, [facility] [address] [address] 14 Aug, 2014 [facility] [address] [facility] [id number] [place] [address] Aug, [facility] [address] [facility] [id number] [place] [address] Oct, [facility] [address] [id number] [place] [address] Oct, [facility] [address] [facility] [id number] [place] [address] Oct, [facility] [address] [facility] [id number] [place] [address] Oct, [facility] [address] [id number] [place] [address] Oct, [facility] [address] [id number] [place] [address] Oct, [facility] [address] [id number] [place] [address] Oct, [facility] [address] [facility] [id number] [place] [address] Oct, [facility] [address] [id number] [place] [address] September, [facility] [address] [id number] [place] [address] September, [facility] [address] [id number] [place] [address] September, [facility] [address] [facility] [id number] [place] [address] September, [facility] [address] [facility] [id number] [place] [address] September, [facility] [address] [facility] [id number] [place] [address] September, [facility] [address] [id number] [place] [address] Jul, [facility] [address] [id number] [place] [address] Jul, [facility] [address] [facility] [id number] [place] [address] Jun, [facility] [address] [id number] [place] [address] Jun, [facility] [address] [id number] [place] [address] Jun, [facility] [address] [id number] [place] [address] Jun, [facility] [address] [id number] [place] [address] Jun, [facility] [address] [id number] [place] [address] Jun, [facility] [address] [id number] [place] [address] May, [facility] [address] [id number] [place] [address] May, [facility] [address] [id number] [place] [address] May, [facility] [address] [id number] [place] [address] May, [facility] [address] [id number] [place] [address] May, [facility] [address] [id number] [place] [address] May, [facility] [address] [id number] [place] [address] May, [facility] [address] [id number] [place] [address] May, [facility] [address] [id number] [place] [address] May, [facility] [address] [id number] [place] [address] May, [facility] [address] [id number] [place] [address] May, [facility] [address] [id number] [place] [address] May, [facility] [address] [id number] [place] [address] May, [facility] [address] [id number] [place] [address] May, [facility] [address] [id number] [place] [address] Apr, [facility] [address] [id number] [place] [address] Apr, [facility] [address] [id number] [place] [address] Apr, [facility] [address] [id number] [place] [address] Apr, [facility] [address] [id number] [place] [address] Apr, [facility] [address] [id number] [place] [address] Apr, [facility] [address] [id number] [place] [address] Apr, [facility] [address] [id number] [place] [address] Apr, [facility] [address] [id number] [place] [address] Mar, [facility] [address] [id number] [place] [address] Mar, [facility] [address] [id number] [place] [address] Mar, [facility] [address] [id number] [place] [address] Mar, [facility] [address] [id number] [place] [address] Mar, [facility] [address] [id number] [place] [address] Dec, [facility] [address] [id number] [place] [address] Dec, [facility] [address] [id number] [place] [address] Dec, [facility] [address] [id number] [place] [address] Dec, [facility] [address] [id number] [place] [address] Dec, [facility] [address] [id number] [place] [address] Nov, [facility] [address] [id number] [place] [address] Nov, [facility] [address] [id number] [place] [address] Nov, [facility] [address] [id number] [place] [address] Oct, IMMUNIZATIONS No Known Immunizations SOCIAL HISTORY Never Assessed REASON FOR VISIT PLAN OF CARE VITAL SIGNS Height 70 in 2013-06-13 Weight 169 lbs 2013-06-13 Temperature 97.6 degrees Fahrenheit 2013-06-13 Heart Rate 60 bpm 2013-06-13 Respiratory Rate 20 2013-06-13 Blood pressure systolic 110 mmHg 2013-06-13 Blood pressure diastolic 81 mmHg 2013-06-13 MEDICATIONS No Known Medications RESULTS No Results PROCEDURES No Known procedures INSTRUCTIONS MEDICATIONS ADMINISTERED No Known Medications MEDICAL (GENERAL) HISTORY Type Description Date Medical History Depression Medical History GERD (gastroesophageal reflux disease) Medical History Insomnia Medical History Anxiety Hospitalization History cyst
--- OUTSIDE RECORDS SUMMARY | 2019-09-29 08:47 | XMS REPORT ---
Author Author Duane Lopez Organization [facility] Address [address] [place] [address] Care Team Providers Care Food Services Manager Name Role Phone HUANG Lopez Unavailable PROBLEMS Type Condition ICD9-CM Code PAV73-QC Code Onset Dates Condition S tatus SNOMED Code Problem GERD (gastroesophageal reflux disease) K21.9 Active 297440016 Problem Anxiety F41.9 Active 51383104 Problem Cigarette nicotine dependence without complication F17.210 Active 42798348 Problem Cigarette nicotine dependence without complication F17.210 Active 22787366 Problem Insomnia G47.00 Active 530860735 Problem Depression F32.9 Active 192042104 Problem Paradoxical insomnia F51.03 Active 354821069 Problem Psoriasis L40.9 Active 4258004 ALLERGIES No Information ENCOUNTERS Encounter Location Date Diagnosis [place] [address] [place] [address] May, [address] [address] May, [place] [address] [place] [address] May, Paradoxical insomnia F51.03 and Eczema, dyshidrotic L30.1 [place] [address] [place] [address] Apr, Eczema, dyshidrotic L30.1 an d Cigarette nicotine dependence without complication F17.210 [place] [address] [place] [address] Mar, Eczema, dyshidrotic L30.1 an d Encounter for immunization Z23 [place] [address] [place] [address] Mar, [facility] ERIKA BURKS [address] [place] [address] Mar, [address] [place] [address] Feb, Dermatitis L30.[address] [place] [address] Feb, [address] [place] [address] Feb, Right hip pain M25.551 and D ermatitis L30.9 [facility] [address] [place] [address] Feb, Contact dermatitis, unspecif ied contact dermatitis type, unspecified trigger L25.9 [facility] [address] [place] [address] Nov, Pain of right eye H57.11 and Iritis H20.[address] [place] [address] Nov, Paradoxical insomnia F51.03 [address] [place] [address] September, Muscle spasm of back M62.830 [facility] [address] [id number] [place] [address] Apr, Insomnia G47.00 ; Anxiety F41.9 and GERD (gastroesophageal reflux disease) K21.9 [facility] [address] [id number] [place] [address] Mar, [facility] [address] [address] Aug, [facility] [address] [address] Aug, [facility] [address] [id number] [place] [address] Oct, [facility] [place] [facility] [address] [id number] [place] [address] Oct, [facility] [place] [facility] [address] [id number] [place] [address] Oct, [facility] [place] [facility] [address] [id number] [place] [address] Oct, [facility] [place] [facility] [address] [id number] [place] [address] Oct, [facility] [place] [facility] [address] [id number] [place] [address] Oct, [facility] [place] [facility] [address] [id number] [place] [address] Oct, [facility] [place] [facility] [address] [id number] [place] [address] Oct, [facility] [place] [facility] [address] [id number] [place] [address] September, [facility] [place] [facility] [address] [id number] [place] [address] September, [facility] [place] [facility] [address] [id number] [place] [address] September, [facility] [place] [facility] [address] [id number] [place] [address] September, [facility] [place] [facility] [address] [id number] [place] [address] September, [facility] [place] [facility] [address] [id number] [place] [address] September, [facility] [place] [facility] [address] [id number] [place] [address] Jul, [facility] [place] [facility] [address] [id number] [place] [address] Jul, [facility] [place] [facility] [address] [id number] [place] [address] Jun, [facility] [place] [facility] [address] [id number] [place] [address] Jun, [facility] [place] [facility] [address] [facility] [id number] [place] [address] Jun, [facility] [place] [facility] [address] [facility] [id number] [place] [address] Jun, [facility] [place] [facility] [address] [id number] [place] [address] Jun, [facility] [place] [facility] [address] [facility] [id number] [place] [address] Jun, [facility] [place] [facility] [address] [facility] [id number] [place] [address] May, [facility] [place] [facility] [address] [id number] [place] [address] May, [facility] [place] [facility] [address] [id number] [place] [address] May, [facility] [place] [facility] [address] [id number] [place] [address] May, [facility] [place] [facility] [address] [id number] [place] [address] May, [facility] [place] [facility] [address] [id number] [place] [address] May, [facility] [place] [facility] [address] [id number] [place] [address] May, [facility] [place] [facility] [address] [id number] [place] [address] May, [facility] [place] [facility] [address] [id number] [place] [address] May, [facility] [place] [facility] [address] [id number] [place] [address] May, [facility] [place] [facility] [address] [id number] [place] [address] May, [facility] [place] [facility] [address] [id number] [place] [address] May, [facility] [place] [facility] [address] [id number] [place] [address] May, [facility] [place] [facility] [address] [id number] [place] [address] May, [facility] [place] [facility] [address] [id number] [place] [address] Apr, [facility] [place] [facility] [address] [id number] [place] [address] Apr, [facility] [place] [facility] [address] [id number] [place] [address] Apr, [facility] [place] [facility] [address] [id number] [place] [address] Apr, [facility] [place] [facility] [address] [id number] [place] [address] Apr, [facility] [place] [facility] [address] [id number] [place] [address] Apr, [facility] [place] [facility] [address] [id number] [place] [address] Apr, [facility] [place] [facility] [address] [id number] [place] [address] Apr, [facility] [place] [facility] [address] [id number] [place] [address] Mar, [facility] [place] [facility] [address] [id number] [place] [address] Mar, [facility] [place] [facility] [address] [id number] [place] [address] Mar, [facility] [place] [facility] [address] [id number] [place] [address] Mar, [facility] [place] [facility] [address] [id number] [place] [address] Mar, [facility] [place] [facility] [address] [id number] [place] [address] Dec, [facility] [place] [facility] [address] [id number] [place] [address] Dec, [facility] [address] [id number] [place] [address] Dec, [facility] [address] [id number] [place] [address] Dec, [facility] [address] [id number] [place] [address] Dec, [facility] [address] [id number] [place] [address] Nov, [facility] [address] [place] [id number] [place] [address] Nov, [facility] [address] [place] [id number] [place] [address] Nov, [facility] [address] [id number] [place] [address] Oct, IMMUNIZATIONS No Known Immunizations SOCIAL HISTORY Never Assessed REASON FOR VISIT PLAN OF CARE VITAL SIGNS Height 70 in 2013-10-02 Weight 176.01 lbs 2013-10-02 Temperature 97.8 degrees Fahrenheit 2013-10-02 Heart Rate 76 bpm 2013-10-02 Respiratory Rate 16 2013-10-02 Blood pressure systolic 116 mmHg 2013-10-02 Blood pressure diastolic 72 mmHg 2013-10-02 MEDICATIONS Unknown Medications RESULTS No Results PROCEDURES Procedure Date Ordered Result Body Site ELECTROCARDIOGRAM, TRACING October 02, 2013 INSTRUCTIONS MEDICATIONS ADMINISTERED No Known Medications MEDICAL (GENERAL) HISTORY Type Description Date Medical History Depression Medical History GERD (gastroesophageal reflux disease) Medical History Insomnia Medical History Anxiety Hospitalization History cyst
--- OUTSIDE RECORDS SUMMARY | 2019-09-29 08:47 | XMS REPORT ---
Author Author Duane Lopez Organization [facility] Address [address] [place] [address] Care Team Providers Care Production Staff Worker Name Role Phone HUANG Lopez Unavailable PROBLEMS Type Condition ICD9-CM Code GMQ01-NB Code Onset Dates Condition S tatus SNOMED Code Problem GERD (gastroesophageal reflux disease) K21.9 Active 237999630 Problem Anxiety F41.9 Active 46645912 Problem Cigarette nicotine dependence without complication F17.210 Active 49708653 Problem Cigarette nicotine dependence without complication F17.210 Active 90502924 Problem Insomnia G47.00 Active 146155503 Problem Depression F32.9 Active 229272103 Problem Paradoxical insomnia F51.03 Active 556583554 Problem Psoriasis L40.9 Active 6867443 ALLERGIES No Information ENCOUNTERS Encounter Location Date Diagnosis [address] [address] Jul, [address] [address] Jun, Paradoxical insomnia F51.03 and Anxiety F41.[address] [address] Jun, [address] [address] May, [address] [address] May, [address] [address] May, Paradoxical insomnia F51.03 and Eczema, dyshidrotic L30.[address] [address] Apr, Eczema, dyshidrotic L30.1 an d Cigarette nicotine dependence without complication F17.210 [place] [address] [place] [address] Mar, Eczema, dyshidrotic L30.1 an d Encounter for immunization Z23 [place] [address] [place] [address] Mar, [place] [address] [place] [address] Mar, [place] [address] [place] [address] Feb, Dermatitis L30.9 [place] [address] [place] [address] Feb, [place] [address] [place] [address] Feb, Right hip pain M25.551 and D ermatitis L30.9 [facility] [address] [place] [address] Feb, Contact dermatitis, unspecif ied contact dermatitis type, unspecified trigger L25.9 [facility] [address] [place] [address] Nov, Pain of right eye H57.11 and Iritis H20.9 [place] [address] [place] [address] Nov, Paradoxical insomnia F51.03 [place] [address] [place] [address] September, Muscle spasm of back M62.830 [facility] [address] [id number] [place] [address] Apr, Insomnia G47.00 ; Anxiety F41.9 and GERD (gastroesophageal reflux disease) K21.9 [facility] [address] [place] [id number] [place] [address] Mar, [facility] [place] [facility] [address] [facility] [id number] [facility] [place] [address] 14 Aug, 2014 [facility] [place] [facility] [address] [facility] [id number] [facility] [place] [address] Aug, [facility] [place] [facility] [address] [id number] [facility] [place] [address] Oct, [facility] [place] [facility] [address] [facility] [id number] [place] [address] Oct, [facility] [place] [facility] [address] [facility] [id number] [place] [address] Oct, [facility] [place] [facility] [address] [id number] [facility] [place] [address] Oct, [facility] [place] [facility] [address] [id number] [facility] [place] [address] Oct, [facility] [place] [facility] [address] [id number] [place] [address] Oct, [facility] [place] [facility] [address] [facility] [id number] [facility] [place] [address] Oct, [facility] [place] [facility] [address] [id number] [place] [address] Oct, [facility] [place] [facility] [address] [id number] [place] [address] September, [facility] [place] [facility] [address] [id number] [facility] [place] [address] September, [facility] [place] [facility] [address] [facility] [id number] [facility] [place] [address] September, [facility] [place] [facility] [address] [id number] [place] [address] September, [facility] [place] [facility] [address] [facility] [id number] [place] [address] September, [facility] [place] [facility] [address] [id number] [facility] [place] [address] September, [facility] [place] [facility] [address] [facility] [id number] [place] [address] Jul, [facility] [place] [facility] [address] [facility] [id number] [place] [address] Jul, [facility] [place] [facility] [address] [id number] [place] [address] Jun, [facility] [place] [facility] [address] [id number] [place] [address] Jun, [facility] [place] [facility] [address] [id number] [place] [address] Jun, [facility] [place] [facility] [address] [id number] [place] [address] Jun, [facility] [place] [facility] [address] [id number] [place] [address] Jun, [facility] [place] [facility] [address] [id number] [place] [address] Jun, [facility] [place] [facility] [address] [id number] [place] [address] May, [facility] [place] [facility] [address] [id number] [place] [address] May, [facility] [place] [facility] [address] [id number] [place] [address] May, [facility] [place] [facility] [address] [id number] [place] [address] May, [facility] [place] [facility] [address] [id number] [place] [address] May, [facility] [place] [facility] [address] [id number] [place] [address] May, [facility] [place] [facility] [address] [id number] [place] [address] May, [facility] [place] [facility] [address] [id number] [place] [address] May, [facility] [place] [facility] [address] [id number] [place] [address] May, [facility] [place] [facility] [address] [id number] [place] [address] May, [facility] [place] [facility] [address] [id number] [place] [address] May, [facility] [place] [facility] [address] [id number] [place] [address] May, [facility] [place] [facility] [address] [id number] [place] [address] May, [facility] [place] [facility] [address] [facility] [id number] [place] [address] May, [facility] [place] [facility] [address] [id number] [place] [address] Apr, [facility] [place] [facility] [address] [id number] [place] [address] Apr, [facility] [place] [facility] [address] [id number] [place] [address] 24 Apr, 2013 [facility] [place] [facility] [address] [id number] [place] [address] Apr, [facility] [place] [facility] [address] [id number] [place] [address] Apr, [facility] [place] [facility] [address] [id number] [place] [address] Apr, [facility] [place] [facility] [address] [id number] [place] [address] 05 Apr, 2013 [facility] [place] [facility] [address] [id number] [place] [address] Apr, [facility] [place] [facility] [address] [id number] [place] [address] Mar, [facility] [place] [facility] [address] [id number] [place] [address] Mar, [facility] [place] [facility] [address] [id number] [place] [address] Mar, [facility] [place] [facility] [address] [id number] [place] [address] Mar, [facility] [address] [id number] [place] [address] Mar, [facility] [address] [id number] [place] [address] Dec, [facility] [id number] [place] [address] Dec, [facility] [id number] [place] [address] Dec, [facility] [id number] [place] [address] Dec, [facility] [id number] [place] [address] Dec, [facility] [id number] [place] [address] Nov, [facility] [id number] [place] [address] Nov, [facility] [id number] [place] [address] Nov, [facility] [id number] [place] [address] Oct, IMMUNIZATIONS No Known Immunizations SOCIAL HISTORY Never Assessed REASON FOR VISIT PLAN OF CARE VITAL SIGNS Height 70 in 2013-08-22 Weight 172.1 lbs 2013-08-22 Temperature 96.9 degrees Fahrenheit 2013-08-22 Heart Rate 68 bpm 2013-08-22 Respiratory Rate 14 2013-08-22 Blood pressure systolic 112 mmHg 2013-08-22 Blood pressure diastolic 72 mmHg 2013-08-22 MEDICATIONS Unknown Medications RESULTS No Results PROCEDURES No Known procedures INSTRUCTIONS MEDICATIONS ADMINISTERED No Known Medications MEDICAL (GENERAL) HISTORY Type Description Date Medical History Depression Medical History GERD (gastroesophageal reflux disease) Medical History Insomnia Medical History Anxiety Hospitalization History cyst
--- OUTSIDE RECORDS SUMMARY | 2019-09-29 08:47 | XMS REPORT ---
Author Author Duane CARRILLO [facility] Address [address] [place] [address] Care Team Providers Care Building Cleaner Name Role Phone GERARDOJOSÉ LUISJENIFER Unavailable PROBLEMS Type Condition ICD9-CM Code ONZ76-AH Code Onset Dates Condition S tatus SNOMED Code Problem GERD (gastroesophageal reflux disease) K21.9 Active 603160641 Problem Anxiety F41.9 Active 47024293 Problem Cigarette nicotine dependence without complication F17.210 Active 82746353 Problem Cigarette nicotine dependence without complication F17.210 Active 63115969 Problem Insomnia G47.00 Active 785013323 Problem Depression F32.9 Active 587423388 Problem Paradoxical insomnia F51.03 Active 417349837 Problem Psoriasis L40.9 Active 5376457 ALLERGIES No Information ENCOUNTERS Encounter Location Date Diagnosis [place] [address] [address] Jul, [place] [address] [place] [address] Jun, Paradoxical insomnia F51.03 and Anxiety F41.[address] [address] Jun, [address] [address] May, [address] [address] May, [address] [address] May, Paradoxical insomnia F51.03 and Eczema, dyshidrotic L30.1 [place] [address] [place] [address] Apr, Eczema, dyshidrotic L30.1 an d Cigarette nicotine dependence without complication F17.210 [place] [address] [place] [address] Mar, Eczema, dyshidrotic L30.1 an d Encounter for immunization Z23 [place] [address] [place] [address] Mar, [place] [address] [place] [address] Mar, [place] [address] [place] [address] Feb, Dermatitis L30.9 [place] [address] [place] [address] Feb, [place] [address] [place] [address] Feb, Right hip pain M25.551 and D ermatitis L30.9 [facility] [address] [place] [address] Feb, Contact dermatitis, unspecif ied contact dermatitis type, unspecified trigger L25.9 [facility] WALK IN [facility] [address] [place] [address] Nov, Pain of right eye H57.11 and Iritis H20.[address] [place] [address] Nov, Paradoxical insomnia F51.03 [place] [address] [place] [address] September, Muscle spasm of back M62.830 [facility] [address] [id number] [place] [address] Apr, Insomnia G47.00 ; Anxiety F41.9 and GERD (gastroesophageal reflux disease) K21.9 [facility] [address] [id number] [place] [address] Mar, [facility] [address] [facility] [id number] [place] [address] 14 Aug, 2014 [facility] [address] [facility] [id number] [facility] [place] [facility] [place] [address] Aug, [facility] [address] [id number] [place] [address] Oct, [facility] [address] [facility] [id number] [facility] [facility] [place] [address] Oct, [facility] [address] [facility] [id number] [place] [address] Oct, [facility] [address] [id number] [place] [address] Oct, [facility] [address] [id number] [place] [address] Oct, [facility] [address] [id number] [place] [address] Oct, [facility] [address] [facility] [id number] [place] [address] Oct, [facility] [address] [id number] [place] [address] Oct, [facility] [address] [id number] [place] [address] September, [facility] [address] [id number] [place] [address] September, [facility] [address] [facility] [id number] [place] [address] September, [facility] [address] [facility] [id number] [place] [address] September, [facility] [address] [id number] [place] [address] September, [facility] [address] [id number] [place] [address] September, [facility] [address] [id number] [facility] [place] [facility] [place] [address] Jul, [facility] [address] [facility] [id number] [place] [address] Jul, [facility] [address] [id number] [place] [address] Jun, [facility] [address] [id number] [place] [address] Jun, [facility] [address] [facility] [id number] [place] [address] Jun, [facility] [address] [facility] [id number] [place] [address] Jun, [facility] [address] [id number] [place] [address] Jun, [facility] [address] [id number] [place] [address] Jun, [facility] [address] [id number] [place] [address] May, [facility] [address] [id number] [place] [address] May, [facility] [address] [id number] [place] [address] May, [facility] [address] [id number] [place] [address] May, [facility] [address] [id number] [place] [address] May, [facility] [address] [id number] [place] [address] May, [facility] [address] [id number] [place] [address] May, [facility] [address] [id number] [place] [address] May, [facility] [address] [id number] [place] [address] May, [facility] [address] [id number] [place] [address] 16 May, 2013 [facility] [address] [id number] [place] [address] May, [facility] [address] [id number] [place] [address] May, [facility] [address] [id number] [place] [address] May, [facility] [address] [id number] [place] [address] May, [facility] [address] [id number] [place] [address] Apr, [facility] [address] [id number] [place] [address] Apr, [facility] [address] [id number] [place] [address] 24 Apr, 2013 [facility] [address] [id number] [place] [address] Apr, [facility] [address] [id number] [place] [address] 18 Apr, 2013 [facility] [address] [id number] [place] [address] Apr, [facility] [address] [id number] [place] [address] 05 Apr, 2013 [facility] [address] [id number] [place] [address] 05 Apr, 2013 [facility] [address] [id number] [place] [address] Mar, [facility] [address] [id number] [place] [address] Mar, [facility] [address] [id number] [place] [address] Mar, [facility] [address] [id number] [place] [address] Mar, [facility] [address] [id number] [place] [address] Mar, [facility] [address] [id number] [place] [address] Dec, [facility] [address] [id number] [place] [address] Dec, [facility] [id number] [place] [address] Dec, [facility] [address] [id number] [place] [address] Dec, [facility] [address] [id number] [place] [address] Dec, [facility] [address] [id number] [place] [address] Nov, [facility] [address] [id number] [place] [address] Nov, [facility] [address] [id number] [place] [address] Nov, [facility] [address] [id number] [place] [address] Oct, IMMUNIZATIONS No Known Immunizations SOCIAL HISTORY Never Assessed REASON FOR VISIT PLAN OF CARE VITAL SIGNS Height 70 in 2013-05-31 Weight 175.5 lbs 2013-05-31 Temperature 97.8 degrees Fahrenheit 2013-05-31 Heart Rate 64 bpm 2013-05-31 Respiratory Rate 16 2013-05-31 Blood pressure systolic 122 mmHg 2013-05-31 Blood pressure diastolic 68 mmHg 2013-05-31 MEDICATIONS Unknown Medications RESULTS No Results PROCEDURES No Known procedures INSTRUCTIONS MEDICATIONS ADMINISTERED No Known Medications MEDICAL (GENERAL) HISTORY Type Description Date Medical History Depression Medical History GERD (gastroesophageal reflux disease) Medical History Insomnia Medical History Anxiety Hospitalization History cyst
--- OUTSIDE RECORDS SUMMARY | 2019-09-29 08:47 | XMS REPORT ---
Author Author Duane Lopez Organization [facility] Address [address] [place] [address] Care Team Providers Care Digital Composer Name Role Phone HUANG Lopez Unavailable PROBLEMS Type Condition ICD9-CM Code PMK57-IU Code Onset Dates Condition S tatus SNOMED Code Problem GERD (gastroesophageal reflux disease) K21.9 Active 528516875 Problem Anxiety F41.9 Active 44077509 Problem Cigarette nicotine dependence without complication F17.210 Active 94429378 Problem Cigarette nicotine dependence without complication F17.210 Active 87617933 Problem Insomnia G47.00 Active 174233516 Problem Depression F32.9 Active 024784179 Problem Paradoxical insomnia F51.03 Active 181744356 Problem Psoriasis L40.9 Active 8222872 ALLERGIES No Information ENCOUNTERS Encounter Location Date Diagnosis [place] [address] [place] [address] May, [address] [address] May, [place] [address] [place] [address] May, Paradoxical insomnia F51.03 and Eczema, dyshidrotic L30.1 [place] [address] [place] [address] Apr, Eczema, dyshidrotic L30.1 an d Cigarette nicotine dependence without complication F17.210 [place] [address] [place] [address] Mar, Eczema, dyshidrotic L30.1 an d Encounter for immunization Z23 [place] [address] [place] [address] Mar, [facility] ERIKA BURKS [address] [place] [address] Mar, [address] [place] [address] Feb, Dermatitis L30.[address] [place] [address] Feb, [address] [place] [address] Feb, Right hip pain M25.551 and D ermatitis L30.9 [facility] [address] [place] [address] Feb, Contact dermatitis, unspecif ied contact dermatitis type, unspecified trigger L25.9 [facility] WALK IN [facility] [address] [place] [address] Nov, Pain of right eye H57.11 and Iritis H20.[address] [place] [address] Nov, Paradoxical insomnia F51.[address] [place] [address] September, Muscle spasm of back M62.830 [facility] [address] [id number] [place] [address] Apr, Insomnia G47.00 ; Anxiety F41.9 and GERD (gastroesophageal reflux disease) K21.9 [facility] [address] [id number] [place] [address] Mar, [facility] [address] [address] Aug, [facility] [address] [address] Aug, [facility] [address] [id number] [place] [address] Oct, [facility] [address] [id number] [place] [address] Oct, [facility] [address] [id number] [place] [address] Oct, [facility] [address] [id number] [place] [address] Oct, [facility] [address] [id number] [place] [address] Oct, [facility] [address] [id number] [place] [address] Oct, [facility] [address] [id number] [place] [address] Oct, [facility] [address] [id number] [place] [address] Oct, [facility] [address] [id number] [place] [address] September, [facility] [address] [id number] [place] [address] September, [facility] [address] [id number] [place] [address] September, [facility] [address] [id number] [place] [address] September, [facility] [address] [id number] [place] [address] September, [facility] [address] [id number] [place] [address] September, [facility] [address] [id number] [place] [address] Jul, [facility] [address] [id number] [place] [address] Jul, [facility] [address] [id number] [place] [address] Jun, [facility] [address] [id number] [place] [address] Jun, [facility] [address] [facility] [id number] [facility] [address] Jun, [facility] [address] [facility] [id number] [facility] [place] [address] Jun, [facility] [address] [id number] [place] [address] Jun, [facility] [address] [facility] [id number] [facility] [address] Jun, [facility] [address] [facility] [id number] [place] [address] May, [facility] [address] [id number] [place] [address] May, [facility] [address] [id number] [place] [address] May, [facility] [address] [id number] [place] [address] May, [facility] [address] [id number] [place] [address] May, [facility] [address] [id number] [place] [address] May, [facility] [address] [id number] [place] [address] May, [facility] [address] [id number] [place] [address] May, [facility] [address] [id number] [place] [address] May, [facility] [address] [id number] [place] [address] May, [facility] [address] [id number] [place] [address] May, [facility] [address] [id number] [place] [address] May, [facility] [address] [id number] [place] [address] May, [facility] [address] [id number] [place] [address] May, [facility] [address] [id number] [place] [address] Apr, [facility] [address] [id number] [place] [address] Apr, [facility] [address] [id number] [place] [address] Apr, [facility] [address] [id number] [place] [address] Apr, [facility] [address] [id number] [place] [address] Apr, [facility] [address] [id number] [place] [address] Apr, [facility] [address] [id number] [place] [address] Apr, [facility] [address] [id number] [place] [address] Apr, [facility] [address] [id number] [place] [address] Mar, [facility] [address] [id number] [place] [address] Mar, [facility] [address] [id number] [place] [address] Mar, [facility] [address] [id number] [place] [address] Mar, [facility] [address] [id number] [place] [address] Mar, [facility] [address] [id number] [place] [address] Dec, [facility] [address] [id number] [place] [address] Dec, [facility] [address] [id number] [place] [address] Dec, [facility] [id number] [place] [address] Dec, [facility] [address] [id number] [place] [address] Dec, [facility] [id number] [place] [address] Nov, [facility] [id number] [place] [address] Nov, [facility] [id number] [place] [address] Nov, [facility] [address] [id number] [place] [address] Oct, IMMUNIZATIONS No Known Immunizations SOCIAL HISTORY [...]
--- OUTSIDE RECORDS SUMMARY | 2019-09-29 08:47 | XMS REPORT ---
Author Author Duane Lopez Organization [facility] Address [address] [place] [address] Care Team Providers Care Cardiac Monitor Technician Name Role Phone HUANG Lopez Unavailable PROBLEMS Type Condition ICD9-CM Code TOX84-HX Code Onset Dates Condition S tatus SNOMED Code Problem GERD (gastroesophageal reflux disease) K21.9 Active 621730031 Problem Anxiety F41.9 Active 27668848 Problem Cigarette nicotine dependence without complication F17.210 Active 40082727 Problem Cigarette nicotine dependence without complication F17.210 Active 22827277 Problem Insomnia G47.00 Active 917907264 Problem Depression F32.9 Active 422483611 Problem Paradoxical insomnia F51.03 Active 970014533 Problem Psoriasis L40.9 Active 0411552 ALLERGIES No Information ENCOUNTERS Encounter Location Date Diagnosis [place] [address] [place] [address] May, [address] [address] May, [place] [address] [place] [address] May, Paradoxical insomnia F51.03 and Eczema, dyshidrotic L30.1 [place] [address] [place] [address] Apr, Eczema, dyshidrotic L30.1 an d Cigarette nicotine dependence without complication F17.210 [place] [address] [place] [address] Mar, Eczema, dyshidrotic L30.1 an d Encounter for immunization Z23 [place] [address] [place] [address] Mar, [facility] [address] [place] [address] Mar, [address] [place] [address] Feb, Dermatitis L30.[address] [place] [address] Feb, [address] [place] [address] Feb, Right hip pain M25.551 and D ermatitis L30.9 [facility] [address] [place] [address] Feb, Contact dermatitis, unspecif ied contact dermatitis type, unspecified trigger L25.9 [facility] WALK IN [facility] [address] [place] [address] Nov, Pain of right eye H57.11 and Iritis H20.[address] [place] [address] Nov, Paradoxical insomnia F51.[address] [place] [address] September, Muscle spasm of back M62.830 [facility] [address] [id number] [place] [address] Apr, Insomnia G47.00 ; Anxiety F41.9 and GERD (gastroesophageal reflux disease) K21.9 [facility] [address] [id number] [place] [address] Mar, [facility] [address] [address] Aug, [facility] [address] [address] Aug, [facility] [address] [id number] [place] [address] Oct, [facility] [place] [facility] [address] [id number] [place] [address] Oct, [facility] [place] [facility] [address] [id number] [place] [address] Oct, [facility] [place] [facility] [address] [id number] [place] [address] Oct, [facility] [place] [facility] [address] [id number] [place] [address] Oct, [facility] [place] [facility] [address] [id number] [place] [address] Oct, [facility] [place] [facility] [address] [id number] [place] [address] Oct, [facility] [place] [facility] [address] [id number] [place] [address] Oct, [facility] [place] [facility] [address] [id number] [place] [address] September, [facility] [place] [facility] [address] [id number] [place] [address] September, [facility] [place] [facility] [address] [id number] [place] [address] September, [facility] [place] [facility] [address] [id number] [place] [address] September, [facility] [place] [facility] [address] [id number] [place] [address] September, [facility] [place] [facility] [address] [id number] [place] [address] September, [facility] [place] [facility] [address] [id number] [place] [address] Jul, [facility] [place] [facility] [address] [id number] [place] [address] Jul, [facility] [place] [facility] [address] [id number] [place] [address] Jun, [facility] [place] [facility] [address] [id number] [place] [address] Jun, [facility] [place] [facility] [address] [facility] [id number] [facility] [address] Jun, [facility] [place] [facility] [address] [facility] [id number] [facility] [address] Jun, [facility] [place] [facility] [address] [id number] [place] [address] Jun, [facility] [place] [facility] [address] [facility] [id number] [facility] [address] Jun, [facility] [place] [facility] [address] [facility] [id number] [place] [address] May, [facility] [place] [facility] [address] [id number] [place] [address] May, [facility] [place] [facility] [address] [id number] [place] [address] May, [facility] [place] [facility] [address] [id number] [place] [address] May, [facility] [place] [facility] [address] [id number] [place] [address] May, [facility] [place] [facility] [address] [id number] [place] [address] May, [facility] [place] [facility] [address] [id number] [place] [address] May, [facility] [place] [facility] [address] [id number] [place] [address] May, [facility] [place] [facility] [address] [id number] [place] [address] May, [facility] [place] [facility] [address] [id number] [place] [address] May, [facility] [place] [facility] [address] [id number] [place] [address] May, [facility] [place] [facility] [address] [id number] [place] [address] May, [facility] [place] [facility] [address] [id number] [place] [address] May, [facility] [place] [facility] [address] [id number] [place] [address] May, [facility] [place] [facility] [address] [id number] [place] [address] Apr, [facility] [place] [facility] [address] [id number] [place] [address] Apr, [facility] [place] [facility] [address] [id number] [place] [address] Apr, [facility] [place] [facility] [address] [id number] [place] [address] Apr, [facility] [place] [facility] [address] [id number] [place] [address] Apr, [facility] [place] [facility] [address] [id number] [place] [address] Apr, [facility] [place] [facility] [address] [id number] [place] [address] Apr, [facility] [place] [facility] [address] [id number] [place] [address] Apr, [facility] [place] [facility] [address] [id number] [place] [address] Mar, [facility] [place] [facility] [address] [id number] [place] [address] Mar, [facility] [place] [facility] [address] [id number] [place] [address] Mar, [facility] [place] [facility] [address] [id number] [place] [address] Mar, [facility] [place] [facility] [address] [id number] [place] [address] Mar, [facility] [place] [facility] [address] [id number] [place] [address] Dec, [facility] [place] [facility] [address] [id number] [place] [address] Dec, [facility] [address] [id number] [place] [address] Dec, [facility] [address] [place] [id number] [place] [address] Dec, [facility] [address] [id number] [place] [address] Dec, [facility] [address] [place] [id number] [place] [address] Nov, [facility] [address] [place] [id number] [place] [address] Nov, [facility] [address] [place] [id number] [place] [address] Nov, [facility] [address] [id number] [place] [address] Oct, IMMUNIZATIONS No Known Immunizations SOCIAL HISTORY [...]
--- OUTSIDE RECORDS SUMMARY | 2019-09-29 08:47 | XMS REPORT ---
Author Author Duane Lopez Organization [facility] Address [address] [place] [address] Care Team Providers Care Adjunct Professor Name Role Phone HUANG Lopez Unavailable PROBLEMS Type Condition ICD9-CM Code [id number] Code Onset Dates Condition S tatus SNOMED Code Problem GERD (gastroesophageal reflux disease) K21.9 Active 167346212 Problem Anxiety F41.9 Active 94026705 Problem Cigarette nicotine dependence without complication F17.210 Active 45703272 Problem Cigarette nicotine dependence without complication F17.210 Active 01170076 Problem Insomnia G47.00 Active 566265065 Problem Depression F32.9 Active 247703542 Problem Paradoxical insomnia F51.03 Active 426493290 Problem Psoriasis L40.9 Active 1629876 ALLERGIES No Information ENCOUNTERS Encounter Location Date Diagnosis [address] [address] Jun, Paradoxical insomnia F51.03 and Anxiety F41.[address] [address] Jun, [address] [address] May, [address] [address] May, [address] [address] May, Paradoxical insomnia F51.03 and Eczema, dyshidrotic L30.1 [place] [address] [address] Apr, Eczema, dyshidrotic L30.1 an d Cigarette nicotine dependence without complication F17.210 [facility] [address] [place] [address] Mar, Eczema, dyshidrotic L30.1 an d Encounter for immunization Z23 [facility] [address] [place] [address] Mar, [address] [place] [address] Mar, [address] [place] [address] Feb, Dermatitis L30.9 [place] [address] [place] [address] Feb, [address] [place] [address] Feb, Right hip pain M25.551 and D ermatitis L30.9 [facility] [address] [place] [address] Feb, Contact dermatitis, unspecif ied contact dermatitis type, unspecified trigger L25.9 [facility] [address] [place] [address] Nov, Pain of right eye H57.11 and Iritis H20.[address] [place] [address] Nov, Paradoxical insomnia F51.[address] [place] [address] September, Muscle spasm of back M62.830 [place] [address] [place] [id number] [place] [address] Apr, Insomnia G47.00 ; Anxiety F41.9 and GERD (gastroesophageal reflux disease) K21.9 [facility] [address] [place] [id number] [place] [address] Mar, [facility] [address] [address] 14 Aug, 2014 [facility] [place] [facility] [address] [facility] [id number] [facility] [address] Aug, [facility] [place] [facility] [address] [facility] [id number] [facility] [address] Oct, [facility] [place] [facility] [address] [id number] [facility] [address] Oct, [facility] [place] [facility] [address] [id number] [place] [address] Oct, [facility] [place] [facility] [address] [facility] [id number] [facility] [address] Oct, [facility] [place] [facility] [address] [id number] [place] [address] Oct, [facility] [place] [facility] [address] [id number] [facility] [address] Oct, [facility] [place] [facility] [address] [id number] [place] [address] Oct, [facility] [place] [facility] [address] [id number] [facility] [address] Oct, [facility] [place] [facility] [address] [id number] [place] [address] September, [facility] [place] [facility] [address] [id number] [place] [address] September, [facility] [place] [facility] [address] [id number] [place] [address] September, [facility] [place] [facility] [address] [id number] [place] [address] September, [facility] [place] [facility] [address] [id number] [place] [address] September, [facility] [place] [facility] [address] [id number] [place] [address] September, [facility] [place] [facility] [address] [id number] [place] [address] Jul, [facility] [place] [facility] [address] [facility] [id number] [place] [address] Jul, [facility] [place] [facility] [address] [id number] [place] [address] Jun, [facility] [place] [facility] [address] [facility] [id number] [place] [address] Jun, [facility] [place] [facility] [address] [id number] [place] [address] Jun, [facility] [place] [facility] [address] [id number] [place] [address] Jun, [facility] [place] [facility] [address] [id number] [place] [address] Jun, [facility] [place] [facility] [address] [id number] [place] [address] Jun, [facility] [place] [facility] [address] [id number] [place] [address] May, [facility] [place] [facility] [address] [id number] [place] [address] May, [facility] [place] [facility] [address] [id number] [place] [address] May, [facility] [place] [facility] [address] [id number] [place] [address] May, [facility] [place] [facility] [address] [id number] [place] [address] May, [facility] [place] [facility] [address] [id number] [place] [address] May, [facility] [place] [facility] [address] [id number] [place] [address] May, [facility] [place] [facility] [address] [id number] [place] [address] May, [facility] [place] [facility] [address] [id number] [place] [address] May, [facility] [place] [facility] [address] [id number] [place] [address] 16 May, 2013 [facility] [address] [id number] [place] [address] May, [facility] [place] [facility] [address] [id number] [place] [address] May, [facility] [place] [facility] [address] [id number] [place] [address] May, [facility] [place] [facility] [address] [id number] [place] [address] May, [facility] [place] [facility] [address] [id number] [place] [address] Apr, [facility] [place] [facility] [address] [id number] [place] [address] Apr, [facility] [place] [facility] [address] [id number] [place] [address] Apr, [facility] [place] [facility] [address] [id number] [place] [address] Apr, [facility] [place] [facility] [address] [id number] [place] [address] Apr, [facility] [place] [facility] [address] [id number] [place] [address] Apr, [facility] [place] [facility] [address] [id number] [place] [address] Apr, [facility] [place] [facility] [address] [id number] [place] [address] Apr, [facility] [place] [facility] [address] [id number] [place] [address] Mar, [facility] [place] [facility] [address] [id number] [place] [address] Mar, [facility] [place] [facility] [address] [id number] [place] [address] Mar, [facility] [place] [facility] [address] [id number] [place] [address] Mar, [facility] [place] [facility] [address] [id number] [place] [address] Mar, [facility] [address] [id number] [place] [address] Dec, [facility] [address] [id number] [place] [address] Dec, [facility] [id number] [place] [address] Dec, [facility] [id number] [place] [address] Dec, [facility] [id number] [place] [address] Dec, [facility] [id number] [place] [address] Nov, [facility] [id number] [place] [address] Nov, [facility] [id number] [place] [address] Nov, [facility] [address] [id number] [place] [address] Oct, IMMUNIZATIONS No Known Immunizations SOCIAL HISTORY [...]
--- OUTSIDE RECORDS SUMMARY | 2019-09-29 08:47 | XMS REPORT ---
Author Author Duane ALVES Organization [facility] Address [address] [place] [address] Care Team Providers Care Wire Annealer Name Role Phone ARIELLE ALVES Unavailable PROBLEMS Type Condition ICD9-CM Code OAF60-DF Code Onset Dates Condition S tatus SNOMED Code Problem GERD (gastroesophageal reflux disease) K21.9 Active 261547142 Problem Anxiety F41.9 Active 39053049 Problem Cigarette nicotine dependence without complication F17.210 Active 91458466 Problem Cigarette nicotine dependence without complication F17.210 Active 65521098 Problem Insomnia G47.00 Active 905246203 Problem Depression F32.9 Active 668722449 Problem Paradoxical insomnia F51.03 Active 950959707 Problem Psoriasis L40.9 Active 4130737 ALLERGIES No Information ENCOUNTERS Encounter Location Date Diagnosis [place] [address] [address] Jul, [address] [address] Jun, Paradoxical insomnia F51.03 and Anxiety F41.[address] [address] Jun, [address] [address] May, [address] [address] May, [address] [address] May, Paradoxical insomnia F51.03 and Eczema, dyshidrotic L30.1 [place] [address] [place] [address] Apr, Eczema, dyshidrotic L30.1 an d Cigarette nicotine dependence without complication F17.210 [place] [address] [place] [address] Mar, Eczema, dyshidrotic L30.1 an d Encounter for immunization Z23 [place] [address] [place] [address] Mar, [address] [place] [address] Mar, [place] [address] [place] [address] Feb, Dermatitis L30.9 [place] [address] [place] [address] Feb, [place] [address] [address] [place] [address] Feb, Right hip pain M25.551 and D ermatitis L30.9 [facility] [address] [place] [address] Feb, Contact dermatitis, unspecif ied contact dermatitis type, unspecified trigger L25.9 [facility] IN [facility] [address] [place] [address] Nov, Pain of right eye H57.11 and Iritis H20.[address] [place] [address] Nov, Paradoxical insomnia F51.[address] [place] [address] September, Muscle spasm of back M62.830 [place] [id number] [id number] [place] [address] Apr, Insomnia G47.00 ; Anxiety F41.9 and GERD (gastroesophageal reflux disease) K21.9 [facility] [address] [id number] [place] [address] Mar, [facility] [address] [facility] [id number] [facility] [place] [address] 14 Aug, 2014 [facility] [address] [facility] [id number] [facility] [place] [address] Aug, [facility] [address] [facility] [id number] [place] [address] Oct, [facility] [address] [facility] [id number] [facility] [place] [address] Oct, [facility] [address] [facility] [id number] [facility] [place] [address] Oct, [facility] [address] [facility] [id number] [place] [address] Oct, [facility] [address] [id number] [place] [address] Oct, [facility] [address] [id number] [place] [address] Oct, [facility] [address] [facility] [id number] [place] [address] Oct, [facility] [address] [id number] [place] [address] Oct, [facility] [address] [id number] [place] [address] September, [facility] [address] [id number] [place] [address] September, [facility] [address] [facility] [id number] [place] [address] September, [facility] [address] [id number] [place] [address] September, [facility] [address] [id number] [place] [address] September, [facility] [address] [id number] [place] [address] September, [facility] [address] [id number] [place] [address] Jul, [facility] [address] [facility] [id number] [place] [address] Jul, [facility] [address] [id number] [place] [address] Jun, [facility] [address] [id number] [place] [address] Jun, [facility] [address] [id number] [place] [address] Jun, [facility] [address] [id number] [place] [address] Jun, [facility] [address] [id number] [place] [address] Jun, [facility] [address] [id number] [place] [address] Jun, [facility] [address] [id number] [place] [address] May, [facility] [address] [id number] [place] [address] May, [facility] [address] [id number] [place] [address] May, [facility] [address] [id number] [place] [address] May, [facility] [address] [id number] [place] [address] May, [facility] [address] [id number] [place] [address] May, [facility] [address] [id number] [place] [address] May, [facility] [address] [id number] [place] [address] May, [facility] [address] [id number] [place] [address] May, [facility] [address] [id number] [place] [address] May, [facility] [address] [id number] [place] [address] May, [facility] [address] [id number] [place] [address] May, [facility] [address] [id number] [place] [address] May, [facility] [address] [id number] [place] [address] May, [facility] [address] [id number] [place] [address] Apr, [facility] [address] [id number] [place] [address] Apr, [facility] [address] [id number] [place] [address] 24 Apr, 2013 [facility] [address] [id number] [place] [address] Apr, [facility] [address] [id number] [place] [address] 18 Apr, 2013 [facility] [address] [id number] [place] [address] Apr, [facility] [address] [id number] [place] [address] 05 Apr, 2013 [facility] [address] [id number] [place] [address] 05 Apr, 2013 [facility] [address] [id number] [place] [address] Mar, [facility] [address] [id number] [place] [address] Mar, [facility] [address] [id number] [place] [address] Mar, [facility] [address] [id number] [place] [address] Mar, [facility] [address] [id number] [place] [address] Mar, [facility] [address] [id number] [place] [address] Dec, [facility] [address] [id number] [place] [address] Dec, [facility] [id number] [place] [address] Dec, [facility] [address] [place] [id number] [place] [address] Dec, [facility] [address] [place] [id number] [place] [address] Dec, [facility] [address] [place] [id number] [place] [address] Nov, [facility] [address] [place] [id number] [place] [address] Nov, [facility] [address] [place] [id number] [place] [address] Nov, [facility] [address] [place] [id number] [place] [address] Oct, IMMUNIZATIONS No Known Immunizations SOCIAL HISTORY [...]
--- OUTSIDE RECORDS SUMMARY | 2019-09-29 08:48 | XMS REPORT ---
Author Author Migration, Amboy Doctor Organization [facility] Address Unknown Phone Unavailable Care Team Providers Care [employer] Principal Name Role Phone Migration, Doctor Unavailable Unavailable PROBLEMS Type Condition ICD9-CM Code TAZ73-SY Code Onset Dates Condition S tatus SNOMED Code Problem Lumbago 724.2 Active 752104608 Problem Onychia and paronychia of toe 681.11 Active 62174021 Problem Hematuria, unspecified 599.70 Active 17720181 Problem Chest pain, unspecified 786.50 Active 43938350 Problem GERD (gastroesophageal reflux disease) K21.9 Active 934392327 Problem Pain in joint, pelvic region and thigh 719.45 Active 407491473 Problem Anxiety F41.9 Active 28316059 Problem Costochondritis 733.6 Active 6410 9004 Problem Acquired cyst of kidney 593.2 Active 871354203 Problem Blood in stool 578.1 Active 81820 9008 Problem Depressive disorder, not elsewhere classified 311 Active 91687563 Problem Insomnia G47.00 Active [id number] ALLERGIES No Information ENCOUNTERS Encounter Location Date Diagnosis [facility] [address] [place] [address] [id number] [address] [place] [address] Apr, Insomnia G47.00 ; Anxiety F4 1.9 and GERD (gastroesophageal reflux disease) K21.9 [facility] [address] [facility] [id number] [address] [place] [address] Mar, [facility] [address] [facility] [id number] [address] [place] [address] Aug, [facility] [address] [facility] [id number] [address] [place] [address] Aug, [facility] [address] [facility] [id number] [address] [place] [address] Oct, [facility] [address] [facility] [id number] [address] [place] [address] Oct, [facility] [address] [id number] [facility] [place] [address] Oct, [facility] [address] [id number] [address] [place] [address], [place] [address] Oct, [facility] [address] [id number] [address] [place] [address], [place] [address] Oct, [facility] [address] [id number] [address] [place] [address], [place] [address] Oct, [facility] [address] [id number] [address] [place] [address], [place] [address] Oct, [facility] [address] [id number] [address] [place] [address], [place] [address] Oct, [facility] [address] [id number] [address] [place] [address], [place] [address] September, [facility] [address] [id number] [address] [place] [address], [place] [address] September, [facility] [address] [id number] [address] [place] [address], [place] [address] September, [facility] [address] [id number] [address] [place] [address], [place] [address] September, [facility] [address] [id number] [address] [place] [address], [place] [address] September, [facility] [address] [id number] [address] [place] [address], [place] [address] September, [facility] [address] [id number] [address] [place] [address], [place] [address] Jul, [facility] [address] [id number] [address] [place] [address], [place] [address] Jul, [facility] [address] [id number] [address] [place] [address], [place] [address] Jun, [facility] [address] [id number] [address] [place] [address], [place] [address] Jun, [facility] [address] [id number] [address] [place] [address], [place] [address] Jun, [facility] [address] [id number] [address] [place] [address], [place] [address] Jun, [facility] [address] [id number] [address] [place] [address], [place] [address] Jun, [facility] [address] [id number] [address] [place] [address], [place] [address] Jun, [facility] [address] [id number] [address] [place] [address], [place] [address] May, [facility] [address] [id number] [address] [place] [address], [place] [address] May, [facility] [address] [id number] [address] [place] [address], [place] [address] May, [facility] [address] [id number] [address] [place] [address], [place] [address] May, [facility] [address] [id number] [address] [place] [address], [place] [address] May, [facility] [address] [id number] [address] [place] [address], [place] [address] May, [facility] [address] [id number] [address] [place] [address], [place] [address] May, [facility] [address] [id number] [address] [place] [address], [place] [address] May, [facility] [address] [id number] [address] [place] [address], [place] [address] May, [facility] [address] [id number] [address] [place] [address], [place] [address] May, [facility] [address] [id number] [address] [place] [address], [place] [address] May, [facility] [address] [id number] [address] [place] [address], [place] [address] May, [facility] [address] [id number] [address] [place] [address], [place] [address] May, [facility] [address] [id number] [address] [place] [address], [place] [address] May, [facility] [address] [id number] [address] [place] [address], [place] [address] Apr, [facility] [address] [id number] [address] [place] [address], [place] [address] Apr, [facility] [address] [id number] [address] [place] [address], [place] [address] Apr, [facility] [address] [id number] [address] [place] [address], [place] [address] Apr, [facility] [address] [id number] [address] [place] [address], [place] [address] Apr, [facility] [address] [id number] [address] [place] [address], [place] [address] Apr, [facility] [address] [id number] [address] [place] [address], [place] [address] Apr, [facility] [address] [id number] [address] [place] [address], [place] [address] Apr, [facility] [address] [id number] [address] [place] [address], [place] [address] Mar, [facility] [address] [id number] [address] [place] [address], [place] [address] Mar, [facility] [address] [id number] [address] [place] [address], [place] [address] Mar, [facility] [address] [id number] [address] [place] [address], [place] [address] Mar, [facility] [address] [id number] [address] [place] [address] Mar, [facility] [address] [id number] [address] [place] [address] Dec, [facility] [address] [id number] [address] [place] [address] Dec, [facility] [address] [id number] [address] [place] [address] Dec, [facility] [address] [id number] [address] [place] [address] Dec, [facility] [address] [id number] [address] [place] [address] Dec, [facility] [address] [id number] [address] [place] [address] Nov, [facility] [address] [id number] [address] [place] [address] Nov, [facility] [address] [id number] [address] [place] [address] Nov, [facility] [address] [id number] [address] [place] [address] Oct, IMMUNIZATIONS No Known Immunizations SOCIAL HISTORY Never Assessed REASON FOR VISIT EMR-[facility] PLAN OF CARE VITAL SIGNS MEDICATIONS No Known Medications RESULTS No Results PROCEDURES No Known procedures INSTRUCTIONS MEDICATIONS ADMINISTERED No Known Medications
--- OUTSIDE RECORDS SUMMARY | 2019-09-29 08:48 | XMS REPORT ---
Author Author [facility] [place] Doctor Organization [facility] Address Unknown Phone Unavailable Care Team Providers Care Public Health Advisor Name Role Phone Migration, Doctor Unavailable Unavailable PROBLEMS Type Condition ICD9-CM Code [id number] Code Onset Dates Condition S tatus SNOMED Code Problem Depression F32.9 Active 23365585 Problem Paradoxical insomnia F51.03 Active 915890717 Problem GERD (gastroesophageal reflux disease) K21.9 Active 234244820 Problem Anxiety F41.9 Active 92372914 Problem Insomnia G47.00 Active 052615940 ALLERGIES No Information ENCOUNTERS Encounter Location Date Diagnosis [address] [address] Nov, Paradoxical insomnia F51.[address] [address] September, Muscle spasm of back M62.830 [facility] [address] [facility] [id number] [address] [place] [address] Apr, Insomnia G47.00 ; Anxiety F4 1.9 and GERD (gastroesophageal reflux disease) K21.9 [facility] [address] [facility] [id number] [address] [place] [address] Mar, [facility] [address] [facility] [id number] [address] [place] [address] Aug, [facility] [address] [facility] [id number] [address] [place] [address] Aug, [facility] [address] [facility] [id number] [address] [place] [address] Oct, [facility] [address] [facility] [id number] [address] [place] [address] Oct, [facility] [address] [facility] [id number] [address] [place] [address] Oct, [facility] [address] [id number] [address] [place] [address], [place] [address] Oct, [facility] [address] [id number] [address] [place] [address], [place] [address] Oct, [facility] [address] [id number] [address] [place] [address], [place] [address] Oct, [facility] [address] [id number] [address] [place] [address], [place] [address] Oct, [facility] [address] [id number] [address] [place] [address], [place] [address] Oct, [facility] [address] [id number] [address] [place] [address], [place] [address] September, [facility] [address] [id number] [address] [place] [address], [place] [address] September, [facility] [address] [id number] [address] [place] [address], [place] [address] September, [facility] [address] [id number] [address] [place] [address], [place] [address] September, [facility] [address] [id number] [address] [place] [address], [place] [address] September, [facility] [address] [id number] [address] [place] [address], [place] [address] September, [facility] [address] [id number] [address] [place] [address], [place] [address] Jul, [facility] [address] [id number] [address] [place] [address], [place] [address] Jul, [facility] [address] [id number] [address] [place] [address], [place] [address] Jun, [facility] [address] [id number] [address] [place] [address], [place] [address] Jun, [facility] [address] [id number] [address] [place] [address], [place] [address] Jun, [facility] [address] [id number] [address] [place] [address], [place] [address] Jun, [facility] [address] [id number] [address] [place] [address], [place] [address] Jun, [facility] [address] [id number] [address] [place] [address], [place] [address] Jun, [facility] [address] [id number] [address] [place] [address], [place] [address] May, [facility] [address] [id number] [address] [place] [address], [place] [address] May, [facility] [address] [id number] [address] [place] [address], [place] [address] May, [facility] [address] [id number] [address] [place] [address], [place] [address] May, [facility] [address] [id number] [address] [place] [address], [place] [address] May, [facility] [address] [id number] [address] [place] [address], [place] [address] May, [facility] [address] [id number] [address] [place] [address], [place] [address] May, [facility] [address] [id number] [address] [place] [address], [place] [address] May, [facility] [address] [id number] [address] [place] [address], [place] [address] May, [facility] [address] [id number] [address] [place] [address], [place] [address] May, [facility] [address] [id number] [address] [place] [address], [place] [address] May, [facility] [address] [id number] [address] [place] [address], [place] [address] May, [facility] [address] [id number] [address] [place] [address], [place] [address] May, [facility] [address] [id number] [address] [place] [address], [place] [address] May, [facility] [address] [id number] [address] [place] [address], [place] [address] Apr, [facility] [address] [id number] [address] [place] [address], [place] [address] Apr, [facility] [address] [id number] [address] [place] [address], [place] [address] Apr, [facility] [address] [id number] [address] [place] [address], [place] [address] Apr, [facility] [address] [id number] [address] [place] [address], [place] [address] Apr, [facility] [address] [id number] [address] [place] [address], [place] [address] Apr, [facility] [address] [id number] [address] [place] [address], [place] [address] Apr, [facility] [address] [id number] [address] [place] [address], [place] [address] Apr, [facility] [address] [id number] [address] [place] [address], [place] [address] Mar, [facility] [address] [id number] [address] [place] [address], [place] [address] Mar, [facility] [address] [id number] [address] [place] [address], [place] [address] Mar, [facility] [address] [id number] [address] [place] [address], [place] [address] Mar, [facility] [address] [id number] [address] [place] [address], [place] [address] Mar, [facility] [address] [id number] [address] [place] [address] Dec, [facility] [address] [id number] [address] [place] [address] Dec, [facility] [address] [id number] [address] [place] [address] Dec, [facility] [address] [facility] [id number] [address] [place] [address] Dec, [facility] [address] [id number] [address] [place] [address] Dec, [facility] [address] [facility] [id number] [address] [place] [address] Nov, [facility] [address] [facility] [id number] [address] [place] [address] Nov, [facility] [address] [facility] [id number] [address] [place] [address] Nov, [facility] [address] [facility] [id number] [address] [place] [address] Oct, IMMUNIZATIONS No Known Immunizations SOCIAL HISTORY Never Assessed REASON FOR VISIT PLAN OF CARE VITAL SIGNS MEDICATIONS No Known Medications RESULTS No Results PROCEDURES No Known procedures INSTRUCTIONS MEDICATIONS ADMINISTERED No Known Medications MEDICAL (GENERAL) HISTORY Type Description Date Medical History Depression Medical History GERD (gastroesophageal reflux disease) Medical History Insomnia Medical History Anxiety
--- OUTSIDE RECORDS SUMMARY | 2019-09-29 08:48 | XMS REPORT ---
Author Author Migration, [place] Doctor Organization [facility] Address Unknown Phone Unavailable Care Team Providers Care Sprue Cutting Press Operator Name Role Phone Migration, Doctor Unavailable Unavailable PROBLEMS Type Condition ICD9-CM Code [id number] Code Onset Dates Condition S tatus SNOMED Code Problem Lumbago 724.2 Active 383293966 Problem Onychia and paronychia of toe 681.11 Active 67254143 Problem Hematuria, unspecified 599.70 Active 75386019 Problem Chest pain, unspecified 786.50 Active 98126921 Problem GERD (gastroesophageal reflux disease) K21.9 Active 566311530 Problem Pain in joint, pelvic region and thigh 719.45 Active 609176726 Problem Anxiety F41.9 Active 61115064 Problem Costochondritis 733.6 Active 6410 9004 Problem Acquired cyst of kidney 593.2 Active 643843828 Problem Blood in stool 578.1 Active 84414 9008 Problem Depressive disorder, not elsewhere classified 311 Active 70282344 Problem Insomnia G47.00 Active 660611734 ALLERGIES No Information ENCOUNTERS Encounter Location Date Diagnosis [facility] [address] [id number] [address] [place] [address] Apr, Insomnia G47.00 ; Anxiety F4 1.9 and GERD (gastroesophageal reflux disease) K21.9 [facility] [address] [facility] [id number] [address] [place] [address] Mar, [facility] [address] [facility] [id number] [address] [place] [address] Aug, [facility] [address] [facility] [id number] [address] [place] [address] Aug, [facility] [address] [facility] [id number] [address] [place] [address] Oct, [facility] [address] [id number] [address] [place] [address] Oct, [facility] [address] [id number] [facility] [address] Oct, [facility] [address] [id number] [address] [place] [address], [place] [address] Oct, [facility] [address] [id number] [address] [place] [address], [place] [address] Oct, [facility] [address] [id number] [address] [place] [address], [place] [address] Oct, [facility] [address] [id number] [address] [place] [address], [place] [address] Oct, [facility] [address] [id number] [address] [place] [address], [place] [address] Oct, [facility] [address] [id number] [address] [place] [address], [place] [address] September, [facility] [address] [id number] [address] [place] [address], [place] [address] September, [facility] [address] [id number] [address] [place] [address], [place] [address] September, [facility] [address] [id number] [address] [place] [address], [place] [address] September, [facility] [address] [id number] [address] [place] [address], [place] [address] September, [facility] [address] [id number] [address] [place] [address], [place] [address] September, [facility] [address] [id number] [address] [place] [address], [place] [address] Jul, [facility] [address] [id number] [address] [place] [address], [place] [address] Jul, [facility] [address] [id number] [address] [place] [address], [place] [address] Jun, [facility] [address] [id number] [address] [place] [address], [place] [address] Jun, [facility] [address] [id number] [address] [place] [address], [place] [address] Jun, [facility] [address] [id number] [address] [place] [address], [place] [address] Jun, [facility] [address] [id number] [address] [place] [address], [place] [address] Jun, [facility] [address] [id number] [address] [place] [address], [place] [address] Jun, [facility] [address] [id number] [address] [place] [address], [place] [address] May, [facility] [address] [id number] [address] [place] [address], [place] [address] May, [facility] [address] [id number] [address] [place] [address], [place] [address] May, [facility] [address] [id number] [address] [place] [address], [place] [address] May, [facility] [address] [id number] [address] [place] [address], [place] [address] May, [facility] [address] [id number] [address] [place] [address], [place] [address] May, [facility] [address] [id number] [address] [place] [address], [place] [address] May, [facility] [address] [id number] [address] [place] [address], [place] [address] May, [facility] [address] [id number] [address] [place] [address], [place] [address] May, [facility] [address] [id number] [address] [place] [address], [place] [address] May, [facility] [address] [id number] [address] [place] [address], [place] [address] May, [facility] [address] [id number] [address] [place] [address], [place] [address] May, [facility] [address] [id number] [address] [place] [address], [place] [address] May, [facility] [address] [id number] [address] [place] [address], [place] [address] May, [facility] [address] [id number] [address] [place] [address], [place] [address] Apr, [facility] [address] [id number] [address] [place] [address], [place] [address] Apr, [facility] [address] [id number] [address] [place] [address], [place] [address] Apr, [facility] [address] [id number] [address] [place] [address], [place] [address] Apr, [facility] [address] [id number] [address] [place] [address], [place] [address] Apr, [facility] [address] [id number] [address] [place] [address], [place] [address] Apr, [facility] [address] [id number] [address] [place] [address], [place] [address] Apr, [facility] [address] [id number] [address] [place] [address], [place] [address] Apr, [facility] [address] [id number] [address] [place] [address], [place] [address] Mar, [facility] [address] [id number] [address] [place] [address], [place] [address] Mar, [facility] [address] [id number] [address] [place] [address], [place] [address] Mar, [facility] [address] [id number] [address] [place] [address], [place] [address] Mar, [facility] [address] [id number] [address] [place] [address] Mar, [facility] [address] [id number] [address] [place] [address] Dec, [facility] [address] [id number] [address] [place] [address] Dec, [facility] [address] [id number] [address] [place] [address] Dec, [facility] [address] [id number] [address] [place] [address] Dec, [facility] [address] [id number] [address] [place] [address] Dec, [facility] [address] [id number] [address] [place] [address] Nov, [facility] [address] [id number] [address] [place] [address] Nov, [facility] [address] [id number] [address] [place] [address] Nov, [facility] [address] [id number] [address] [place] [address] Oct, IMMUNIZATIONS No Known Immunizations SOCIAL HISTORY Never Assessed REASON FOR VISIT [place] VITAL SIGNS MEDICATIONS No Known Medications RESULTS No Results PROCEDURES No Known procedures INSTRUCTIONS MEDICATIONS ADMINISTERED No Known Medications
--- OUTSIDE RECORDS SUMMARY | 2019-09-29 08:48 | XMS REPORT ---
Author Author Migration, [place] Doctor Organization [facility] Address Unknown Phone Unavailable Care Team Providers Care Flag Car Driver Name Role Phone Migration, Doctor Unavailable Unavailable PROBLEMS Type Condition ICD9-CM Code LLK36-RN Code Onset Dates Condition S tatus SNOMED Code Problem Lumbago 724.2 Active 422716359 Problem Onychia and paronychia of toe 681.11 Active 91602123 Problem Hematuria, unspecified 599.70 Active 72634924 Problem Chest pain, unspecified 786.50 Active 44278171 Problem GERD (gastroesophageal reflux disease) K21.9 Active 400267702 Problem Pain in joint, pelvic region and thigh 719.45 Active 567666455 Problem Anxiety F41.9 Active 25078818 Problem Costochondritis 733.6 Active 6410 9004 Problem Acquired cyst of kidney 593.2 Active 664263983 Problem Blood in stool 578.1 Active 40434 9008 Problem Depressive disorder, not elsewhere classified 311 Active 87686187 Problem Insomnia G47.00 Active [id number] ALLERGIES No Information ENCOUNTERS Encounter Location Date Diagnosis [facility] [address] [id number] [address] [place] [address] Apr, Insomnia G47.00 ; Anxiety F4 1.9 and GERD (gastroesophageal reflux disease) K21.9 [facility] [address] [facility] [id number] [address] [place] [address] Mar, [facility] [address] [facility] [id number] [address] [place] [address] Aug, [facility] [address] [facility] [id number] [address] [place] [address] Aug, [facility] [address] [facility] [id number] [address] [place] [address] Oct, [facility] [address] [facility] [id number] [address] [place] [address] Oct, [facility] [address] [id number] [facility] [place] [address] Oct, [facility] [address] [id number] [address] [place] [address], [place] [address] Oct, [facility] [address] [id number] [address] [place] [address], [place] [address] Oct, [facility] [address] [id number] [address] [place] [address], [place] [address] Oct, [facility] [address] [id number] [address] [place] [address], [place] [address] Oct, [facility] [address] [id number] [address] [place] [address], [place] [address] Oct, [facility] [address] [id number] [address] [place] [address], [place] [address] September, [facility] [address] [id number] [address] [place] [address], [place] [address] September, [facility] [address] [id number] [address] [place] [address], [place] [address] September, [facility] [address] [id number] [address] [place] [address], [place] [address] September, [facility] [address] [id number] [address] [place] [address], [place] [address] September, [facility] [address] [id number] [address] [place] [address], [place] [address] September, [facility] [address] [id number] [address] [place] [address], [place] [address] Jul, [facility] [address] [id number] [address] [place] [address], [place] [address] Jul, [facility] [address] [id number] [address] [place] [address], [place] [address] Jun, [facility] [address] [id number] [address] [place] [address], [place] [address] Jun, [facility] [address] [id number] [address] [place] [address], [place] [address] Jun, [facility] [address] [id number] [address] [place] [address], [place] [address] Jun, [facility] [address] [id number] [address] [place] [address], [place] [address] Jun, [facility] [address] [id number] [address] [place] [address], [place] [address] Jun, [facility] [address] [id number] [address] [place] [address], [place] [address] May, [facility] [address] [id number] [address] [place] [address], [place] [address] May, [facility] [address] [id number] [address] [place] [address], [place] [address] May, [facility] [address] [id number] [address] [place] [address], [place] [address] May, [facility] [address] [id number] [address] [place] [address], [place] [address] May, [facility] [address] [id number] [address] [place] [address], [place] [address] May, [facility] [address] [id number] [address] [place] [address], [place] [address] May, [facility] [address] [id number] [address] [place] [address], [place] [address] May, [facility] [address] [id number] [address] [place] [address], [place] [address] May, [facility] [address] [id number] [address] [place] [address], [place] [address] May, [facility] [address] [id number] [address] [place] [address], [place] [address] May, [facility] [address] [id number] [address] [place] [address], [place] [address] May, [facility] [address] [id number] [address] [place] [address], [place] [address] May, [facility] [address] [id number] [address] [place] [address], [place] [address] May, [facility] [address] [id number] [address] [place] [address], [place] [address] Apr, [facility] [address] [id number] [address] [place] [address], [place] [address] Apr, [facility] [address] [id number] [address] [place] [address], [place] [address] Apr, [facility] [address] [id number] [address] [place] [address], [place] [address] Apr, [facility] [address] [id number] [address] [place] [address], [place] [address] Apr, [facility] [address] [id number] [address] [place] [address], [place] [address] Apr, [facility] [address] [id number] [address] [place] [address], [place] [address] Apr, [facility] [address] [id number] [address] [place] [address], [place] [address] Apr, [facility] [address] [id number] [address] [place] [address], [place] [address] Mar, [facility] [address] [id number] [address] [place] [address], [place] [address] Mar, [facility] [address] [id number] [address] [place] [address], [place] [address] Mar, [facility] [address] [id number] [address] [place] [address], [place] [address] Mar, [facility] [address] [id number] [address] [place] [address] Mar, [facility] [address] [id number] [address] [place] [address] Dec, [facility] [address] [id number] [address] [place] [address] Dec, [facility] [address] [id number] [address] [place] [address] Dec, [facility] [address] [id number] [address] [place] [address] Dec, [facility] [address] [id number] [address] [place] [address] Dec, [facility] [address] [id number] [address] [place] [address] Nov, [facility] [address] [id number] [address] [place] [address] Nov, [facility] [address] [id number] [address] [place] [address] Nov, [facility] [address] [id number] [address] [place] [address] Oct, IMMUNIZATIONS No Known Immunizations SOCIAL HISTORY Never Assessed REASON FOR VISIT EMR-[facility] [place] PLAN OF CARE VITAL SIGNS MEDICATIONS No Known Medications RESULTS No Results PROCEDURES No Known procedures INSTRUCTIONS MEDICATIONS ADMINISTERED No Known Medications
--- OUTSIDE RECORDS SUMMARY | 2019-09-29 08:48 | XMS REPORT ---
Author Author Migration, [place] Doctor Organization [facility] Address Unknown Phone Unavailable Care Team Providers Care Director [employer] Name Role Phone Migration, Doctor Unavailable Unavailable PROBLEMS Type Condition ICD9-CM Code [id number] Code Onset Dates Condition S tatus SNOMED Code Problem Lumbago 724.2 Active 215567904 Problem Onychia and paronychia of toe 681.11 Active 36634092 Problem Hematuria, unspecified 599.70 Active 91886871 Problem Chest pain, unspecified 786.50 Active 39174147 Problem GERD (gastroesophageal reflux disease) K21.9 Active 574397700 Problem Pain in joint, pelvic region and thigh 719.45 Active 853799943 Problem Anxiety F41.9 Active 63723217 Problem Costochondritis 733.6 Active 6410 9004 Problem Acquired cyst of kidney 593.2 Active 259430897 Problem Blood in stool 578.1 Active 95587 9008 Problem Depressive disorder, not elsewhere classified 311 Active 65618957 Problem Insomnia G47.00 Active 791770921 ALLERGIES No Information ENCOUNTERS Encounter Location Date Diagnosis [facility] [address] [id number] [address] [place] [address] Apr, Insomnia G47.00 ; Anxiety F4 1.9 and GERD (gastroesophageal reflux disease) K21.9 [facility] [address] [facility] [id number] [address] [place] [address] Mar, [facility] [address] [facility] [id number] [address] [place] [address] Aug, [facility] [address] [facility] [id number] [address] [place] [address] Aug, [facility] [address] [facility] [id number] [address] [place] [address] Oct, [facility] [address] [facility] [id number] [address] [place] [address] Oct, [facility] [address] [id number] [facility] [address] Oct, [facility] [address] [id number] [address] [place] [address], [place] [address] Oct, [facility] [address] [id number] [address] [place] [address], [place] [address] Oct, [facility] [address] [id number] [address] [place] [address], [place] [address] Oct, [facility] [address] [id number] [address] [place] [address], [place] [address] Oct, [facility] [address] [id number] [address] [place] [address], [place] [address] Oct, [facility] [address] [id number] [address] [place] [address], [place] [address] September, [facility] [address] [id number] [address] [place] [address], [place] [address] September, [facility] [address] [id number] [address] [place] [address], [place] [address] September, [facility] [address] [id number] [address] [place] [address], [place] [address] September, [facility] [address] [id number] [address] [place] [address], [place] [address] September, [facility] [address] [id number] [address] [place] [address], [place] [address] September, [facility] [address] [id number] [address] [place] [address], [place] [address] Jul, [facility] [address] [id number] [address] [place] [address], [place] [address] Jul, [facility] [address] [id number] [address] [place] [address], [place] [address] Jun, [facility] [address] [id number] [address] [place] [address], [place] [address] Jun, [facility] [address] [id number] [address] [place] [address], [place] [address] Jun, [facility] [address] [id number] [address] [place] [address], [place] [address] Jun, [facility] [address] [id number] [address] [place] [address], [place] [address] Jun, [facility] [address] [id number] [address] [place] [address], [place] [address] Jun, [facility] [address] [id number] [address] [place] [address], [place] [address] May, [facility] [address] [id number] [address] [place] [address], [place] [address] May, [facility] [address] [id number] [address] [place] [address], [place] [address] May, [facility] [address] [id number] [address] [place] [address], [place] [address] May, [facility] [address] [id number] [address] [place] [address], [place] [address] May, [facility] [address] [id number] [address] [place] [address], [place] [address] May, [facility] [address] [id number] [address] [place] [address], [place] [address] May, [facility] [address] [id number] [address] [place] [address], [place] [address] May, [facility] [address] [id number] [address] [place] [address], [place] [address] May, [facility] [address] [id number] [address] [place] [address], [place] [address] May, [facility] [address] [id number] [address] [place] [address], [place] [address] May, [facility] [address] [id number] [address] [place] [address], [place] [address] May, [facility] [address] [id number] [address] [place] [address], [place] [address] May, [facility] [address] [id number] [address] [place] [address], [place] [address] May, [facility] [address] [id number] [address] [place] [address], [place] [address] Apr, [facility] [address] [id number] [address] [place] [address], [place] [address] Apr, [facility] [address] [id number] [address] [place] [address], [place] [address] Apr, [facility] [address] [id number] [address] [place] [address], [place] [address] Apr, [facility] [address] [id number] [address] [place] [address], [place] [address] Apr, [facility] [address] [id number] [address] [place] [address], [place] [address] Apr, [facility] [address] [id number] [address] [place] [address], [place] [address] Apr, [facility] [address] [id number] [address] [place] [address], [place] [address] Apr, [facility] [address] [id number] [address] [place] [address], [place] [address] Mar, [facility] [address] [id number] [address] [place] [address], [place] [address] Mar, [facility] [address] [id number] [address] [place] [address], [place] [address] Mar, [facility] [address] [id number] [address] [place] [address], [place] [address] Mar, [facility] [address] [id number] [address] [place] [address] Mar, [facility] [address] [id number] [address] [place] [address] Dec, [facility] [address] [id number] [address] [place] [address] Dec, [facility] [address] [id number] [address] [place] [address] Dec, [facility] [address] [id number] [address] [place] [address] Dec, [facility] [address] [id number] [address] [place] [address] Dec, [facility] [address] [id number] [address] [place] [address] Nov, [facility] [address] [id number] [address] [place] [address] Nov, [facility] [address] [id number] [address] [place] [address] Nov, [facility] [address] [id number] [address] [place] [address] Oct, IMMUNIZATIONS No Known Immunizations SOCIAL HISTORY Never Assessed REASON FOR VISIT [place] [place] [facility] [place] VITAL SIGNS MEDICATIONS No Known Medications RESULTS No Results PROCEDURES No Known procedures INSTRUCTIONS MEDICATIONS ADMINISTERED No Known Medications
--- OUTSIDE RECORDS SUMMARY | 2019-09-29 08:48 | XMS REPORT ---
Author Author [facility], [place] Doctor Organization [facility] Address Unknown Phone Unavailable Care Team Providers Care Coo Name Role Phone Migration, Doctor Unavailable Unavailable PROBLEMS Type Condition ICD9-CM Code [id number] Code Onset Dates Condition S tatus SNOMED Code Problem GERD (gastroesophageal reflux disease) K21.9 Active 409316980 Problem Anxiety F41.9 Active 82600587 Problem Cigarette nicotine dependence without complication F17.210 Active 83821880 Problem Cigarette nicotine dependence without complication F17.210 Active 20410121 Problem Insomnia G47.00 Active 682536416 Problem Depression F32.9 Active 370627318 Problem Paradoxical insomnia F51.03 Active 553103867 Problem Psoriasis L40.9 Active 5938442 ALLERGIES No Information ENCOUNTERS Encounter Location Date Diagnosis [address] [address] Apr, Eczema, dyshidrotic L30.1 an d Cigarette nicotine dependence without complication F17.210 [address] [address] Mar, Eczema, dyshidrotic L30.1 an d Encounter for immunization Z23 [address] [address] Mar, [address] [place] [address] Mar, [address] [address] Feb, Dermatitis L30.9 [address] [place] [address] Feb, [address] [place] [address] Feb, Right hip pain M25.551 and D ermatitis L30.9 [facility] [address] [place] [address] Feb, Contact dermatitis, unspecif ied contact dermatitis type, unspecified trigger L25.9 [facility] [address] [place] [address] Nov, Pain of right eye H57.11 and Iritis H20.[address] [place] [address] Nov, Paradoxical insomnia F51.[address] [place] [address] September, Muscle spasm of back M62.830 [facility] [address] [address] Apr, Insomnia G47.00 ; Anxiety F41.9 and GERD (gastroesophageal reflux disease) K21.9 [facility] [address] [address] Mar, [facility] [address] [address] Aug, [facility] [address] [address] Aug, [facility] [address] [address] Oct, [facility] [address] [address] Oct, [facility] [address] [address] Oct, [facility] [address] [address] Oct, [facility] [address] [address] Oct, [facility] [address] [address] Oct, [facility] [address] [id number] [place] [address] Oct, [facility] [address] [id number] [place] [address] Oct, [facility] [address] [id number] [place] [address] September, [facility] [address] [id number] [place] [address] September, [facility] [address] [facility] [id number] [place] [address] September, [facility] [address] [id number] [place] [address] September, [facility] [address] [id number] [place] [address] September, [facility] [address] [id number] [place] [address] September, [facility] [address] [id number] [place] [address] Jul, [facility] [address] [id number] [place] [address] Jul, [facility] [address] [id number] [place] [address] Jun, [facility] [address] [id number] [place] [address] Jun, [facility] [address] [id number] [place] [address] Jun, [facility] [address] [id number] [place] [address] Jun, [facility] [address] [id number] [place] [address] Jun, [facility] [address] [id number] [place] [address] Jun, [facility] [address] [id number] [place] [address] May, [facility] [address] [id number] [place] [address] May, [facility] [address] [id number] [place] [address] May, [facility] [address] [id number] [place] [address] May, [facility] [address] [id number] [place] [address] May, [facility] [address] [id number] [place] [address] May, [facility] [address] [id number] [place] [address] May, [facility] [address] [id number] [place] [address] May, [facility] [address] [id number] [place] [address] May, [facility] [address] [id number] [place] [address] May, [facility] [address] [id number] [place] [address] May, [facility] [address] [id number] [place] [address] May, [facility] [address] [id number] [place] [address] May, [facility] [address] [id number] [place] [address] May, [facility] [address] [id number] [place] [address] Apr, [facility] [address] [id number] [place] [address] Apr, [facility] [address] [id number] [place] [address] Apr, [facility] [address] [id number] [place] [address] Apr, [facility] [address] [id number] [place] [address] Apr, [facility] [address] [id number] [place] [address] Apr, [facility] [address] [id number] [place] [address] Apr, [facility] [address] [id number] [place] [address] Apr, [facility] [address] [id number] [place] [address] Mar, [facility] [address] [id number] [place] [address] Mar, [facility] [address] [id number] [place] [address] Mar, [facility] [address] [id number] [place] [address] Mar, [facility] [address] [id number] [place] [address] Mar, [facility] [address] [id number] [place] [address] Dec, [facility] [address] [id number] [place] [address] Dec, [facility] [address] [id number] [place] [address] Dec, [facility] [address] [id number] [place] [address] Dec, [facility] [address] [id number] [place] [address] Dec, [facility] [address] [id number] [place] [address] Nov, [facility] [address] [id number] [place] [address] Nov, [facility] [address] [facility] [id number] [place] [address] Nov, [facility] [address] [facility] [id number] [place] [address] Oct, IMMUNIZATIONS No Known Immunizations SOCIAL HISTORY [...]
--- OUTSIDE RECORDS SUMMARY | 2019-09-29 08:48 | XMS REPORT ---
Author Author Migration, [place] Doctor Organization [facility] Address Unknown Phone Unavailable Care Team Providers Care [employer] System Operator Name Role Phone Migration, Doctor Unavailable Unavailable PROBLEMS Type Condition ICD9-CM Code KBB01-AN Code Onset Dates Condition S tatus SNOMED Code Problem Depression F32.9 Active 29822665 Problem Paradoxical insomnia F51.03 Active 992540228 Problem GERD (gastroesophageal reflux disease) K21.9 Active 672282758 Problem Anxiety F41.9 Active 01483013 Problem Insomnia G47.00 Active 303966574 ALLERGIES No Information ENCOUNTERS Encounter Location Date Diagnosis [facility] [address] [place] [address] Nov, Pain of right eye H57.11 and Iritis H20. [address] [address] Nov, Paradoxical insomnia F51.[address] [address] September, Muscle spasm of back M62.830 [facility] [address] [facility] [id number] [address] [place] [address] Apr, Insomnia G47.00 ; Anxiety F4 1.9 and GERD (gastroesophageal reflux disease) K21.9 [facility] [address] [facility] [id number] [address] [place] [address] Mar, [facility] [address] [facility] [id number] [address] [place] [address] Aug, [facility] [address] [facility] [id number] [address] [place] [address] Aug, [facility] [address] [facility] [id number] [address] [place] [address] Oct, [facility] [address] [facility] [id number] [address] [place] [address] Oct, [facility] [address] [id number] [address] [place] [address], [place] [address] Oct, [facility] [address] [id number] [address] [place] [address], [place] [address] Oct, [facility] [address] [id number] [address] [place] [address], [place] [address] Oct, [facility] [address] [id number] [address] [place] [address], [place] [address] Oct, [facility] [address] [id number] [address] [place] [address], [place] [address] Oct, [facility] [address] [id number] [address] [place] [address], [place] [address] Oct, [facility] [address] [id number] [address] [place] [address], [place] [address] September, [facility] [address] [id number] [address] [place] [address], [place] [address] September, [facility] [address] [id number] [address] [place] [address], [place] [address] September, [facility] [address] [id number] [address] [place] [address], [place] [address] September, [facility] [address] [id number] [address] [place] [address], [place] [address] September, [facility] [address] [id number] [address] [place] [address], [place] [address] September, [facility] [address] [id number] [address] [place] [address], [place] [address] Jul, [facility] [address] [id number] [address] [place] [address], [place] [address] Jul, [facility] [address] [id number] [address] [place] [address], [place] [address] Jun, [facility] [address] [id number] [address] [place] [address], [place] [address] Jun, [facility] [address] [id number] [address] [place] [address], [place] [address] Jun, [facility] [address] [id number] [address] [place] [address], [place] [address] Jun, [facility] [address] [id number] [address] [place] [address], [place] [address] Jun, [facility] [address] [id number] [address] [place] [address], [place] [address] Jun, [facility] [address] [id number] [address] [place] [address], [place] [address] May, [facility] [address] [id number] [address] [place] [address], [place] [address] May, [facility] [address] [id number] [address] [place] [address], [place] [address] May, [facility] [address] [id number] [address] [place] [address], [place] [address] May, [facility] [address] [id number] [address] [place] [address], [place] [address] May, [facility] [address] [id number] [address] [place] [address], [place] [address] May, [facility] [address] [id number] [address] [place] [address], [place] [address] May, [facility] [address] [id number] [address] [place] [address], [place] [address] May, [facility] [address] [id number] [address] [place] [address], [place] [address] May, [facility] [address] [id number] [address] [place] [address], [place] [address] May, [facility] [address] [id number] [address] [place] [address], [place] [address] May, [facility] [address] [id number] [address] [place] [address], [place] [address] May, [facility] [address] [id number] [address] [place] [address], [place] [address] May, [facility] [address] [id number] [address] [place] [address], [place] [address] May, [facility] [address] [id number] [address] [place] [address], [place] [address] Apr, [facility] [address] [id number] [address] [place] [address], [place] [address] Apr, [facility] [address] [id number] [address] [place] [address], [place] [address] Apr, [facility] [address] [id number] [address] [place] [address], [place] [address] Apr, [facility] [address] [id number] [address] [place] [address], [place] [address] Apr, [facility] [address] [id number] [address] [place] [address], [place] [address] Apr, [facility] [address] [id number] [address] [place] [address], [place] [address] Apr, [facility] [address] [id number] [address] [place] [address], [place] [address] Apr, [facility] [address] [id number] [address] [place] [address], [place] [address] Mar, [facility] [address] [id number] [address] [place] [address], [place] [address] Mar, [facility] [address] [id number] [address] [place] [address], [place] [address] Mar, [facility] [address] [id number] [address] [place] [address], [place] [address] Mar, [facility] [address] [id number] [address] [place] [address] Mar, [facility] [address] [id number] [address] [place] [address] Dec, [facility] [address] [id number] [address] [place] [address] Dec, [facility] [address] [id number] [address] [place] [address] Dec, [facility] [address] [id number] [address] [place] [address] Dec, [facility] [address] [id number] [address] [place] [address] Dec, [facility] [address] [id number] [address] [place] [address] Nov, [facility] [address] [id number] [address] [place] [address] Nov, [facility] [address] [id number] [address] [place] [address] Nov, [facility] [address] [id number] [address] [place] [address] Oct, IMMUNIZATIONS No Known Immunizations SOCIAL HISTORY Never Assessed REASON FOR VISIT PLAN OF CARE VITAL SIGNS Height 70 in 2013-11-08 Weight 215.9 lbs 2013-11-08 Temperature 98.6 degrees Fahrenheit 2013-11-08 Heart Rate 78 bpm 2013-11-08 Respiratory Rate 20 2013-11-08 Blood pressure systolic 122 mmHg 2013-11-08 Blood pressure diastolic 72 mmHg 2013-11-08 MEDICATIONS No Known Medications RESULTS No Results PROCEDURES Procedure Date Ordered Result Body Site MRI LUMBAR SPINE W/O DYE November 08, 2013 INSTRUCTIONS MEDICATIONS ADMINISTERED No Known Medications MEDICAL (GENERAL) HISTORY Type Description Date Medical History Depression Medical History GERD (gastroesophageal reflux disease) Medical History Insomnia Medical History Anxiety
--- OUTSIDE RECORDS SUMMARY | 2019-09-29 08:48 | XMS REPORT ---
Author Author [facility] (Formerly [facility]), [place] Doctor Organization [facility] Address Unknown Phone Unavailable Care Team Providers Care Managing Director Name Role Phone Migration, Doctor Unavailable Unavailable PROBLEMS Type Condition ICD9-CM Code UTJ47-MS Code Onset Dates Condition S tatus SNOMED Code Problem GERD (gastroesophageal reflux disease) K21.9 Active 678960858 Problem Anxiety F41.9 Active 30229604 Problem Cigarette nicotine dependence without complication F17.210 Active 27353479 Problem Cigarette nicotine dependence without complication F17.210 Active 94223157 Problem Insomnia G47.00 Active 246442662 Problem Depression F32.9 Active 134960235 Problem Paradoxical insomnia F51.03 Active 129919039 Problem Psoriasis L40.9 Active 2838620 ALLERGIES No Information ENCOUNTERS Encounter Location Date Diagnosis [address] [address] Apr, Eczema, dyshidrotic L30.1 an d Cigarette nicotine dependence without complication F17.210 [address] [address] Mar, Eczema, dyshidrotic L30.1 an d Encounter for immunization Z23 [address] [address] Mar, [address] [place] [address] Mar, [address] [address] Feb, Dermatitis L30.9 [address] [place] [address] Feb, [address] [place] [address] Feb, Right hip pain M25.551 and D ermatitis L30.9 [facility] [address] [place] [address] Feb, Contact dermatitis, unspecif ied contact dermatitis type, unspecified trigger L25.9 [facility] [address] [place] [address] Nov, Pain of right eye H57.11 and Iritis H20.[address] [place] [address] Nov, Paradoxical insomnia F51.[address] [place] [address] September, Muscle spasm of back M62.830 [facility] [address] [address] Apr, Insomnia G47.00 ; Anxiety F41.9 and GERD (gastroesophageal reflux disease) K21.9 [facility] [address] [address] Mar, [facility] [address] [address] Aug, [facility] [address] [address] Aug, [facility] [address] [address] Oct, [facility] [address] [address] Oct, [facility] [address] [address] Oct, [facility] [address] [address] Oct, [facility] [address] [address] Oct, [facility] [address] [address] Oct, [facility] [address] [id number] [place] [address] Oct, [facility] [address] [id number] [place] [address] Oct, [facility] [address] [id number] [place] [address] September, [facility] [address] [id number] [place] [address] September, [facility] [address] [facility] [id number] [place] [address] September, [facility] [address] [id number] [place] [address] September, [facility] [address] [id number] [place] [address] September, [facility] [address] [id number] [place] [address] September, [facility] [address] [id number] [place] [address] Jul, [facility] [address] [id number] [place] [address] Jul, [facility] [address] [id number] [place] [address] Jun, [facility] [address] [id number] [place] [address] Jun, [facility] [address] [id number] [place] [address] Jun, [facility] [address] [id number] [place] [address] Jun, [facility] [address] [id number] [place] [address] Jun, [facility] [address] [id number] [place] [address] Jun, [facility] [address] [id number] [place] [address] May, [facility] [address] [id number] [place] [address] May, [facility] [address] [id number] [place] [address] May, [facility] [address] [id number] [place] [address] May, [facility] [address] [id number] [place] [address] May, [facility] [address] [id number] [place] [address] May, [facility] [address] [id number] [place] [address] May, [facility] [address] [id number] [place] [address] May, [facility] [address] [id number] [place] [address] May, [facility] [address] [id number] [place] [address] May, [facility] [address] [id number] [place] [address] May, [facility] [address] [id number] [place] [address] May, [facility] [address] [id number] [place] [address] May, [facility] [address] [id number] [place] [address] May, [facility] [address] [id number] [place] [address] Apr, [facility] [address] [id number] [place] [address] Apr, [facility] [address] [id number] [place] [address] Apr, [facility] [address] [id number] [place] [address] Apr, [facility] [address] [id number] [place] [address] Apr, [facility] [address] [id number] [place] [address] Apr, [facility] [address] [id number] [place] [address] Apr, [facility] [address] [id number] [place] [address] Apr, [facility] [address] [id number] [place] [address] Mar, [facility] [address] [id number] [place] [address] Mar, [facility] [address] [id number] [place] [address] Mar, [facility] [address] [id number] [place] [address] Mar, [facility] [address] [id number] [place] [address] Mar, [facility] [address] [id number] [place] [address] Dec, [facility] [address] [id number] [place] [address] Dec, [facility] [address] [id number] [place] [address] Dec, [facility] [address] [id number] [place] [address] Dec, [facility] [address] [id number] [place] [address] Dec, [facility] [address] [id number] [place] [address] Nov, [facility] [address] [id number] [place] [address] Nov, [facility] [address] [facility] [id number] [place] [address] Nov, [facility] [address] [facility] [id number] [place] [address] Oct, IMMUNIZATIONS No Known Immunizations SOCIAL HISTORY [...]
--- OUTSIDE RECORDS SUMMARY | 2019-09-29 08:48 | XMS REPORT ---
Author Author Migration, [place] Doctor Organization [facility] Address Unknown Phone Unavailable Care Team Providers Care Aeronautical Inspector Name Role Phone Migration, Doctor Unavailable Unavailable PROBLEMS Type Condition ICD9-CM Code SPE56-CI Code Onset Dates Condition S tatus SNOMED Code Problem Lumbago 724.2 Active 765955849 Problem Onychia and paronychia of toe 681.11 Active 42296473 Problem Hematuria, unspecified 599.70 Active 51306709 Problem Chest pain, unspecified 786.50 Active 81696941 Problem GERD (gastroesophageal reflux disease) K21.9 Active 443204327 Problem Pain in joint, pelvic region and thigh 719.45 Active 237717659 Problem Anxiety F41.9 Active 45926304 Problem Costochondritis 733.6 Active 6410 9004 Problem Acquired cyst of kidney 593.2 Active 063418109 Problem Blood in stool 578.1 Active 40933 9008 Problem Depressive disorder, not elsewhere classified 311 Active 71021589 Problem Insomnia G47.00 Active 499238117 ALLERGIES No Information ENCOUNTERS Encounter Location Date Diagnosis [facility] [address] [id number] [address] [place] [address] Apr, Insomnia G47.00 ; Anxiety F4 1.9 and GERD (gastroesophageal reflux disease) K21.9 [facility] [address] [facility] [id number] [address] [place] [address] Mar, [facility] [address] [facility] [id number] [address] [place] [address] Aug, [facility] [address] [facility] [id number] [address] [place] [address] Aug, [facility] [address] [facility] [id number] [address] [place] [address] Oct, [facility] [address] [id number] [address] [place] [address] Oct, [facility] [address] [id number] [facility] [address] Oct, [facility] [address] [id number] [address] [place] [address], [place] [address] Oct, [facility] [address] [id number] [address] [place] [address], [place] [address] Oct, [facility] [address] [id number] [address] [place] [address], [place] [address] Oct, [facility] [address] [id number] [address] [place] [address], [place] [address] Oct, [facility] [address] [id number] [address] [place] [address], [place] [address] Oct, [facility] [address] [id number] [address] [place] [address], [place] [address] September, [facility] [address] [id number] [address] [place] [address], [place] [address] September, [facility] [address] [id number] [address] [place] [address], [place] [address] September, [facility] [address] [id number] [address] [place] [address], [place] [address] September, [facility] [address] [id number] [address] [place] [address], [place] [address] September, [facility] [address] [id number] [address] [place] [address], [place] [address] September, [facility] [address] [id number] [address] [place] [address], [place] [address] Jul, [facility] [address] [id number] [address] [place] [address], [place] [address] Jul, [facility] [address] [id number] [address] [place] [address], [place] [address] Jun, [facility] [address] [id number] [address] [place] [address], [place] [address] Jun, [facility] [address] [id number] [address] [place] [address], [place] [address] Jun, [facility] [address] [id number] [address] [place] [address], [place] [address] Jun, [facility] [address] [id number] [address] [place] [address], [place] [address] Jun, [facility] [address] [id number] [address] [place] [address], [place] [address] Jun, [facility] [address] [id number] [address] [place] [address], [place] [address] May, [facility] [address] [id number] [address] [place] [address], [place] [address] May, [facility] [address] [id number] [address] [place] [address], [place] [address] May, [facility] [address] [id number] [address] [place] [address], [place] [address] May, [facility] [address] [id number] [address] [place] [address], [place] [address] May, [facility] [address] [id number] [address] [place] [address], [place] [address] May, [facility] [address] [id number] [address] [place] [address], [place] [address] May, [facility] [address] [id number] [address] [place] [address], [place] [address] May, [facility] [address] [id number] [address] [place] [address], [place] [address] May, [facility] [address] [id number] [address] [place] [address], [place] [address] May, [facility] [address] [id number] [address] [place] [address], [place] [address] May, [facility] [address] [id number] [address] [place] [address], [place] [address] May, [facility] [address] [id number] [address] [place] [address], [place] [address] May, [facility] [address] [id number] [address] [place] [address], [place] [address] May, [facility] [address] [id number] [address] [place] [address], [place] [address] Apr, [facility] [address] [id number] [address] [place] [address], [place] [address] Apr, [facility] [address] [id number] [address] [place] [address], [place] [address] Apr, [facility] [address] [id number] [address] [place] [address], [place] [address] Apr, [facility] [address] [id number] [address] [place] [address], [place] [address] Apr, [facility] [address] [id number] [address] [place] [address], [place] [address] Apr, [facility] [address] [id number] [address] [place] [address], [place] [address] Apr, [facility] [address] [id number] [address] [place] [address], [place] [address] Apr, [facility] [address] [id number] [address] [place] [address], [place] [address] Mar, [facility] [address] [id number] [address] [place] [address], [place] [address] Mar, [facility] [address] [id number] [address] [place] [address], [place] [address] Mar, [facility] [address] [id number] [address] [place] [address], [place] [address] Mar, [facility] [address] [id number] [address] [place] [address] Mar, [facility] [address] [id number] [address] [place] [address] Dec, [facility] [address] [id number] [address] [place] [address] Dec, [facility] [address] [id number] [address] [place] [address] Dec, [facility] [address] [id number] [address] [place] [address] Dec, [facility] [address] [id number] [address] [place] [address] Dec, [facility] [address] [id number] [address] [place] [address] Nov, [facility] [address] [id number] [address] [place] [address] Nov, [facility] [address] [id number] [address] [place] [address] Nov, [facility] [address] [id number] [address] [place] [address] Oct, IMMUNIZATIONS No Known Immunizations SOCIAL HISTORY Never Assessed REASON FOR [place] [place] VITAL SIGNS MEDICATIONS No Known Medications RESULTS No Results PROCEDURES No Known procedures INSTRUCTIONS MEDICATIONS ADMINISTERED No Known Medications
--- OUTSIDE RECORDS SUMMARY | 2019-09-29 08:48 | XMS REPORT ---
Author Author Duane Lopez Organization [facility] Address [address] [place] [address] Care Team Providers Care Drama Therapist Name Role Phone HUANG Lopez Unavailable PROBLEMS Type Condition ICD9-CM Code LNC61-QF Code Onset Dates Condition S tatus SNOMED Code Problem Depression F32.9 Active 84230594 Problem Paradoxical insomnia F51.03 Active 901824342 Problem GERD (gastroesophageal reflux disease) K21.9 Active 558787493 Problem Anxiety F41.9 Active 27368075 Problem Insomnia G47.00 Active 521434556 ALLERGIES No Information ENCOUNTERS Encounter Location Date Diagnosis [facility] [address] [place] [address] Nov, Pain of right eye H57.11 and Iritis H20. [address] [address] Nov, Paradoxical insomnia F51.[address] [address] September, Muscle spasm of back M62.830 [facility] [address] [facility] [id number] [address] [place] [id number] Apr, Insomnia G47.00 ; Anxiety F4 1.9 and GERD (gastroesophageal reflux disease) K21.9 [facility] [address] [facility] [id number] [address] [place] [phone] Mar, [facility] [address] [facility] [id number] [address] [place] [id number] 14 Aug, 2014 [facility] [address] [facility] [id number] [address] [place] [phone] Aug, [facility] [address] [facility] [id number] [address] [place] [phone] Oct, [facility] [address] [id number] [facility] [place] [address] Oct, [facility] [address] [id number] [address] [place] [address], [place] [address] Oct, [facility] [address] [id number] [address] [place] [address], [place] [address] Oct, [facility] [address] [id number] [address] [place] [address], [place] [address] Oct, [facility] [address] [id number] [address] [place] [address], [place] [address] Oct, [facility] [address] [id number] [address] [place] [address], [place] [address] Oct, [facility] [address] [id number] [address] [place] [address], [place] [address] Oct, [facility] [address] [id number] [address] [place] [address], [place] [address] September, [facility] [address] [id number] [address] [place] [address], [place] [address] September, [facility] [address] [id number] [address] [place] [address], [place] [address] September, [facility] [address] [id number] [address] [place] [address], [place] [address] September, [facility] [address] [id number] [address] [place] [address], [place] [address] September, [facility] [address] [id number] [address] [place] [address], [place] [address] September, [facility] [address] [id number] [address] [place] [address], [place] [address] Jul, [facility] [address] [id number] [address] [place] [address], [place] [address] Jul, [facility] [address] [id number] [address] [place] [address], [place] [address] Jun, [facility] [address] [id number] [address] [place] [address], [place] [address] Jun, [facility] [address] [id number] [address] [place] [address], [place] [address] Jun, [facility] [address] [id number] [address] [place] [address], [place] [address] Jun, [facility] [address] [id number] [address] [place] [address], [place] [address] Jun, [facility] [address] [id number] [address] [place] [address], [place] [address] Jun, [facility] [address] [id number] [address] [place] [address], [place] [address] May, [facility] [address] [id number] [address] [place] [address], [place] [address] May, [facility] [address] [id number] [address] [place] [address], [place] [address] May, [facility] [address] [id number] [address] [place] [address], [place] [address] May, [facility] [address] [id number] [address] [place] [address], [place] [address] May, [facility] [address] [id number] [address] [place] [address], [place] [address] May, [facility] [address] [id number] [address] [place] [address], [place] [address] May, [facility] [address] [id number] [address] [place] [address], [place] [address] May, [facility] [address] [id number] [address] [place] [address], [place] [address] May, [facility] [address] [id number] [address] [place] [address], [place] [address] May, [facility] [address] [id number] [address] [place] [address], [place] [address] May, [facility] [address] [id number] [address] [place] [address], [place] [address] May, [facility] [address] [id number] [address] [place] [address], [place] [address] May, [facility] [address] [id number] [address] [place] [address], [place] [address] May, [facility] [address] [id number] [address] [place] [address], [place] [address] Apr, [facility] [address] [id number] [address] [place] [address], [place] [address] Apr, [facility] [address] [id number] [address] [place] [address], [place] [address] Apr, [facility] [address] [id number] [address] [place] [address], [place] [address] Apr, [facility] [address] [id number] [address] [place] [address], [place] [address] Apr, [facility] [address] [id number] [address] [place] [address], [place] [address] Apr, [facility] [address] [id number] [address] [place] [address], [place] [address] Apr, [facility] [address] [id number] [address] [place] [address], [place] [address] Apr, [facility] [address] [id number] [address] [place] [address], [place] [address] Mar, [facility] [address] [id number] [address] [place] [address], [place] [address] Mar, [facility] [address] [id number] [address] [place] [address], [place] [address] Mar, [facility] [address] [id number] [address] [place] [phone] Mar, [facility] [address] [id number] [address] [place] [address] Mar, [facility] [address] [id number] [address] [place] [address] Dec, [facility] [address] [id number] [address] [place] [address] Dec, [facility] [address] [id number] [address] [place] [phone] Dec, [facility] [address] [id number] [address] [place] [phone] Dec, [facility] [address] [id number] [address] [place] [phone] Dec, [facility] [address] [id number] [address] [place] [address] Nov, [facility] [address] [id number] [address] [place] [phone] Nov, [facility] [address] [id number] [address] [place] [id number] Nov, [facility] [address] [id number] [address] [place] [phone] Oct, IMMUNIZATIONS No Known Immunizations SOCIAL HISTORY Never Assessed REASON FOR VISIT PLAN OF CARE VITAL SIGNS MEDICATIONS No Known Medications RESULTS No Results PROCEDURES No Known procedures INSTRUCTIONS MEDICATIONS ADMINISTERED No Known Medications MEDICAL (GENERAL) HISTORY Type Description Date Medical History Depression Medical History GERD (gastroesophageal reflux disease) Medical History Insomnia Medical History Anxiety
--- OUTSIDE RECORDS SUMMARY | 2019-09-29 08:49 | XMS REPORT | Continuity of Care Document ---
Author Organization Unknown Address Unknown Phone Unavailable Allergies Active Description Code Type Severity Reaction Onset Reported/Identified Relationship to Patient Clinical Status Yes No Known Drug Allergies [id number] Drug Allergy Unknown N/A 05/26/2013 Medications There is no data. Problems Date Dx Coded Attending Type Code Diagnosis Diagnosed By 11/06/2012 719.45 SANTOS N IN JOINT INVOLVING [employer] AND THIGH 11/06/2012 733.6 TIET ZE'S DISEASE 11/06/2012 719.45 SANTOS N IN JOINT INVOLVING [employer]IGH 11/06/2012 733.6 TIET ZE'S DISEASE 11/06/2012 719.45 SANTOS N IN JOINT INVOLVING P[employer] AND THIGH 11/06/2012 733.6 TIET ZE'S DISEASE 11/06/2012 ENE CHOWDARY DO 719.45 PAIN IN JOINT INVOLVING P[employer] AND THIGH 11/06/2012 ENE CHOWDARY DO 733.6 TIETZE'S DISEASE 11/06/2012 ENE CHOWDARY DO 719.45 PAIN IN JOINT INVOLVING PEL[employer]IC [employer] AND THIGH 11/06/2012 ENE CHOWDARY DO 733.6 TIETZE'S DISEASE 11/06/2012 ENE CHOWDARY DO 719.45 PAIN IN JOINT INVOLVING P[employer] AND THIGH 11/06/2012 ENE CHOWDARY DO 733.6 TIETZE'S DISEASE 11/06/2012 JENIFER CARRILLO MD 719 .45 PAIN IN JOINT INVOLVING P[employer] AND THIGH 11/06/2012 JENIFER CARRILLO MD 733 .6 TIETZE'S DISEASE 11/06/2012 ARIELLE ALVES APRN 719.45 PAIN IN JOINT INVOLVING P[employer] AND THIGH 11/06/2012 ARIELLE ALVES APRN 733.6 TIETZE'S DISEASE 11/06/2012 HUANG HOWARD APRN 719.45 PAIN IN JOINT INVOLVING P[employer] AND THIGH 11/06/2012 LEE RESEARCH AND DEVELOPMENT DIRECTOR, HUANG R 733.6 TIETZE'S DISEASE 11/06/2012 LEE RUSSELLN, HUANG R 719.45 PAIN IN JOINT INVOLVING P[employer] AND THIGH 11/06/2012 LEE COMBS, HUANG R 733.6 TIETZE'S DISEASE 11/06/2012 EPI DO ENE K 719.45 PAIN IN JOINT INVOLVING P[employer] THIGH 11/06/2012 EPI DO ENE K 733.6 TIETZE'S DISEASE 01/01/2013 599.70 HEM ATURIA 01/01/2013 EPI DUMONT ENE K 599.70 HEMATURIA 01/01/2013 EPI DUMONT ENE K 599.70 HEMATURIA 01/01/2013 EPI DUMONT ENE K 599.70 HEMATURIA 01/01/2013 JENIFER CARRILLO MD 599 .70 HEMATURIA 01/01/2013 ARIELLE ALVES APRN 599.70 HEMATURIA 01/01/2013 TABITHA HOWARD APRNINA R 599.70 HEMATURIA 01/01/2013 LEE COMBS HUANG R 599.70 HEMATURIA 01/01/2013 EPI DUMONT, ENE K 599.70 HEMATURIA 01/08/2013 593.2 CYST OF KIDNEY ACQUIRED 01/08/2013 CHOWDARY DO, ENE K 593.2 CYST OF KIDNEY ACQUIRED 01/08/2013 EPI DUMONT ENE K 593.2 CYST OF KIDNEY ACQUIRED 01/08/2013 CHOWDARY DO, ENE K 593.2 CYST OF KIDNEY ACQUIRED 01/08/2013 JENIFER CARRILLO MD 593 .2 CYST OF KIDNEY ACQUIRED 01/08/2013 ARIELLE ALVES APRN S 593.2 CYST OF KIDNEY ACQUIRED 01/08/2013 TABITHA HOWARD APRNINA R 593.2 CYST OF KIDNEY ACQUIRED 01/08/2013 LEE COMBS, HUANG R 593.2 CYST OF KIDNEY ACQUIRED 01/08/2013 EPI DUMONT ENE K 593.2 CYST OF KIDNEY ACQUIRED 05/26/2013 MAYKEL DOS SANTOS, ROSSY T Ot 566 ANAL RECTAL ABSCESS 05/31/2013 JENIFER CARRILLO MD 311 DEPRESSIVE DISORDER NOT ELSEWHERE CLASSIFIED 05/31/2013 JENIFER CARRILLO MD 578 .1 BLOOD IN STOOL 05/31/2013 JOSELYN RESEARCH AND DEVELOPMENT DIRECTOR, ARIELLE S 311 DEPRESSIVE DISORDER NOT ELSEWHERE CLASSIFIED 05/31/2013 ARIELLE ALVES APRN S 578.1 BLOOD IN STOOL 05/31/2013 TABITHA HOWARD APRNINA R 3 11 DEPRESSIVE DISORDER NOT ELSEWHERE CLASSIFIED 05/31/2013 TABITHA HOWARD APRNINA R 578.1 BLOOD IN STOOL 05/31/2013 TABITHA HOWARD APRNINA R 3 11 DEPRESSIVE DISORDER NOT ELSEWHERE CLASSIFIED 05/31/2013 TABITHA HOWARD APRNINA R 578.1 BLOOD IN STOOL 05/31/2013 ENE CHOWDARY DO K 311 DEPRESSIVE DISORDER NOT ELSEWHERE CLASSIFIED 05/31/2013 ENE CHOWDARY DO K 578.1 BLOOD IN STOOL 06/13/2013 ARIELLE ALVES APRN S 724.2 BACK PAIN, LOWER 06/13/2013 HUANG HOWARD APRN R 724.2 BACK PAIN, LOWER 06/13/2013 HUANG HOWARD APRN R 724.2 BACK PAIN, LOWER 06/13/2013 ENE CHOWDARY DO K 724.2 BACK PAIN, LOWER 08/22/2013 TABITHA HOWARD APRNINA R 681.11 ONYCHIA AND PARONYCHIA OF TOE 08/22/2013 TABITHA HOWARD APRNINA R 681.11 ONYCHIA AND PARONYCHIA OF TOE 08/22/2013 ENE CHOWDARY DO K 681.11 ONYCHIA AND PARONYCHIA OF TOE 08/27/2013 ARIELLE ALVES Ot 724.2 LUMBAGO 08/27/2013 ARIELLE ALVES Ot V57.1 PHYSICAL THERAPY NEC 10/02/2013 HUANG HOWARD APRN R 786.50 CHEST PAIN 10/02/2013 ENE CHOWDARY DO K 786.50 CHEST PAIN 01/06/2014 AL HAYNES MD Ot 721. 3 LUMBOSACRAL SPONDYLOSIS 01/06/2014 AL HAYNES MD Ot V58. 69 OTH MED,LT,CURRENT USE 01/13/2014 AL HAYNES MD Ot 721. 3 LUMBOSACRAL SPONDYLOSIS 01/13/2014 AL HAYNES MD Ot V58. 69 OTH MED,LT,CURRENT USE 05/22/2015 ROSSY FIGUEROA Ot 599.70 05/22/2015 ROSSY FIGUEROA Ot 789.04 05/22/2015 HUANG HOWARD RESEARCH AND DEVELOPMENT DIRECTOR Ot 593.9 05/22/2015 KHAN PA, ROSSY M Ot 719.45 05/22/2015 KHAN PA, ROSSY M Ot 724 .2 05/22/2015 KHAN PA, ROSSY M Ot 733 .6 05/22/2015 KHAN PA, ROSSY M Ot 599.70 05/22/2015 KHAN PA, ROSSY M Ot 789.04 05/22/2015 HUANG HOWARD RESEARCH AND DEVELOPMENT DIRECTOR Ot 593.9 05/22/2015 KHAN PA, ROSSY M Ot 719.45 05/22/2015 KHAN PA, ROSSY M Ot 724 .2 05/22/2015 KHAN PA, ROSSY M Ot 733 .6 05/23/2015 SUKHDEV DOS SANTOS, MASON M Ot K61.1 RECTAL ABSCESS 05/26/2015 KHAN PA, ROSSY M Ot 599.70 05/26/2015 KHAN PA, ROSSY M Ot 789.04 05/26/2015 HUANG HOWARD RESEARCH AND DEVELOPMENT DIRECTOR Ot 593.9 05/26/2015 KHAN PA, ROSSY M Ot 719.45 05/26/2015 KHAN PA, ROSSY M Ot 724 .2 05/26/2015 KHAN PA, ROSSY M Ot 733 .6 05/26/2015 KHAN PA, ROSSY M Ot 599.70 05/26/2015 KHAN PA, ROSSY M Ot 789.04 05/26/2015 HUANG HOWARD RESEARCH AND DEVELOPMENT DIRECTOR Ot 593.9 05/26/2015 KHAN PA, ROSSY M Ot 719.45 05/26/2015 KHAN PA, ROSSY M Ot 724 .2 05/26/2015 KHAN PA, ROSSY M Ot 733 .6 06/01/2015 KHAN PA, ROSSY M Ot 599.70 06/01/2015 KHAN PA, ROSSY M Ot 789.04 06/01/2015 HUANG HOWARD RESEARCH AND DEVELOPMENT DIRECTOR Ot 593.9 06/01/2015 KHAN PA, ROSSY M Ot 719.45 06/01/2015 KHAN PA, ROSSY M Ot 724 .2 06/01/2015 KHAN PA, ROSSY M Ot 733 .6 09/25/2017 TRACEY PACHECO Ot F17.200 NICOTINE DEPENDENCE, UNSPECIFIED, UNCOMP 09/25/2017 TRACEY PACHECO Ot K61.0 ANAL ABSCESS 09/25/2017 TRACEY PACHECO Ot K62.89 OTHER SPECIFIED DISEASES OF ANUS AND REC 09/25/2017 TRACEY PACHECO Ot M47.9 SPONDYLOSIS, UNSPECIFIED 09/25/2017 TRACEY PACHECO Ot Z87.2 PERSONAL HISTORY OF DISEASES OF THE SKIN 09/25/2017 ROSSY FIGUEROA Ot 599.70 HEMATURIA, UNSPECIFIED 09/25/2017 ROSSY FIGUEROA Ot 789.04 ABDOMINAL PAIN, LEFT LOWER QUADRANT 09/25/2017 HUANG HOWARD APRN Ot 593.9 RENAL URETERAL DIS NOS 09/25/2017 ROSSY FIGUEROA Ot 719.45 JOINT PAIN-PELVIS 09/25/2017 ROSSY FIGUEROA Ot 724 .2 LUMBAGO 09/25/2017 ROSSY FIGUEROA Ot 733 .6 TIETZE'S DISEASE 03/18/2019 ROSSY FIGUEROA Ot 719.45 JOINT PAIN-PELVIS 03/18/2019 ROSSY FIGUEROA Ot 724 .2 LUMBAGO 03/18/2019 ROSSY FIGUEROA Ot 733 .6 TIETZE'S DISEASE 03/20/2019 NAYELI PRADHAN Ot M25.55 1 PAIN IN RIGHT HIP 04/03/2019 NAYELI PRADHAN Ot M25.55 1 PAIN IN RIGHT HIP Procedures Code [place] [address] OXIMETRY 11/06/2012 67906 XRAY CHEST 2 VIEW 11/06/2012 85641 XRAY HIP LEFT UNILATERAL MIN 2 VIEWS 11/06/[address] A BDOMEN & PELVIS W/ & W/O CONTRAST 04/17/2013 21767 UA W / CULTURE IF INDICATED 04/17/2013 87903 CBC 04/17/2013 80941 CMP 04/17/2013 1066171 GF R CALC (RESULT ONLY) 04/17/2013 99181 TSH 04/17/2013 97341 ROUT INE VENIPUNCTURE 05/15/2013 64938 UA W / CULTURE IF INDICATED 05/15/2013 34013 URIN E DRUG SCREEN (IN-HOUSE) 05/15/2013 78065 ESR/ SED RATE 05/15/2013 Orthopedi Jason Godinez 05/16/2013 50154 RA FACTOR 05/17/2013 40113 XRAY LUMBAR SPINE 2 OR 3 VIEWS 06/17/2013 MASON HAWKINS 06/19/2013 General Herbert Hudson Jose 06/20/2013 General Christopher Robison 06/26/2013 Physical P hysical Therapy 06/26/2013 General Christopher Robison 08/05/2013 56078 MRI SPINE (LUMBAR) W/O CONTRAST 11/09/2013 Mason Hawkins 11/11/2013 Results There is no data. Encounters ACCT No. Visit Date/Time Discharge Status Pt. Type Provider Facility Loc./Unit Complaint [id number] 07/18/2019 10:45:00 07/18/2019 23:59: 59 CLS Outpatient SHANEKA ROMERO [facility] [place] [id number] 03/18/2019 09:31:00 019 23:59:59 CLS Outpatient NAYELI PRADHAN [facility] RAD FS M25.551 [id number] 09/25/2017 11:25:00 018 13:14:00 DIS Emergency TRACEY PACHECO [facility] ER BOTTOM SKIN ISSUES [id number] 05/22/2015 22:45:00 015 14:47:00 DIS Outpatient MASON SANTIZO MD [facility] SDC PERIANAL ABSCESS [id number] 01/13/2014 12:01:00 014 12:58:00 DIS Outpatient AL HAYNES MD [facility] CARD LUMBAR SPONDYLOSIS [id number] 01/06/2014 12:43:00 014 13:40:00 DIS Outpatient AL HAYNES MD [facility] CARD LUMBAR SPONDYLOSIS [id number] 11/20/2013 13:29:00 014 23:59:59 CLS Outpatient ROSSY FIGUEROA [facility] RAD LOW BACK AND HIP PAIN [id number] 07/25/2013 15:40:00 04/01/2 014 11:46:00 DIS Outpatient ARIELLE ALVES [facility] REHAB LOW BACK PAIN [id number] 05/26/2013 17:17:00 19:31:00 DIS Emergency MAYKEL DOS SANTOS, ROSSY Peraza [facility] ER ABSCESS [id number] 04/24/2013 10:53:00 23:59:59 CLS Outpatient HUANG HOWARD RESEARCH AND DEVELOPMENT DIRECTOR [facility] RAD RENAL MASS [id number] 01/07/2013 11:17:00 23:59:59 CLS Outpatient ROSSY FIGUEROA [facility] RAD HEMATURIA, [place] [id number] 11/08/2013 16:43:00 11/08/2013 23:59: 59 CLS Outpatient ENE CHOWDARY DO [id number] 10/02/2013 09:32:00 10/02/2013 23:59: 59 CLS Outpatient HUANG HOWARD APRN [id number] 08/22/2013 08:36:00 08/22/2013 23:59: 59 CLS Outpatient HUANG HOWARD APRN [id number] 06/17/2013 08:40:00 06/17/2013 23:59: 59 CLS Outpatient ARIELLE ALVES APRN [id number] 05/31/2013 15:25:00 05/31/2013 23:59: 59 CLS Outpatient GERARDO DOS SANTOS, JENIFER Lorenzo [id number] 05/15/2013 15:14:00 05/15/2013 23:59: 59 CLS Outpatient ENE CHOWDARY DO [id number] 05/02/2013 13:24:00 05/02/2013 23:59: 59 CLS Outpatient ENE CHOWDARY DO [id number] 04/17/2013 09:45:00 04/17/2013 23:59: 59 CLS Outpatient ENE CHOWDARY DO [id number] 01/01/2013 17:42:00 Document Registration [id number] 12/11/2012 16:54:00 Document Registration [id number] 11/06/2012 09:50:00 Document Registration
--- OUTSIDE RECORDS SUMMARY | 2019-09-29 08:49 | XMS REPORT ---
Author Author Migration, Spar[place] Doctor Organization [facility] Address Unknown Phone Unavailable Care Team Providers Care Metals Sales Representative Name Role Phone Migration, Doctor Unavailable Unavailable PROBLEMS Type Condition ICD9-CM Code [id number] Code Onset Dates Condition S tatus SNOMED Code Problem Lumbago 724.2 Active 097523518 Problem Onychia and paronychia of toe 681.11 Active 64569701 Problem Hematuria, unspecified 599.70 Active 33573390 Problem Chest pain, unspecified 786.50 Active 71079880 Problem GERD (gastroesophageal reflux disease) K21.9 Active 026596522 Problem Pain in joint, pelvic region and thigh 719.45 Active 837762973 Problem Anxiety F41.9 Active 92078949 Problem Costochondritis 733.6 Active 6410 9004 Problem Acquired cyst of kidney 593.2 Active 687449722 Problem Blood in stool 578.1 Active 17345 9008 Problem Depressive disorder, not elsewhere classified 311 Active 07072875 Problem Insomnia G47.00 Active 588855639 ALLERGIES No Information ENCOUNTERS Encounter Location Date Diagnosis [facility] [address] [id number] [address] [place] [address] Apr, Insomnia G47.00 ; Anxiety F4 1.9 and GERD (gastroesophageal reflux disease) K21.9 [facility] [address] [facility] [id number] [address] [place] [address] Mar, [facility] [address] [facility] [id number] [address] [place] [address] Aug, [facility] [address] [facility] [id number] [address] [place] [address] Aug, [facility] [address] [facility] [id number] [address] [place] [address] Oct, [facility] [address] [id number] [address] [place] [address] Oct, [facility] [address] [id number] [facility] [place] [address] Oct, [facility] [address] [id number] [address] [place] [address], [place] [address] Oct, [facility] [address] [id number] [address] [place] [address], [place] [address] Oct, [facility] [address] [id number] [address] [place] [address], [place] [address] Oct, [facility] [address] [id number] [address] [place] [address], [place] [address] Oct, [facility] [address] [id number] [address] [place] [address], [place] [address] Oct, [facility] [address] [id number] [address] [place] [address], [place] [address] September, [facility] [address] [id number] [address] [place] [address], [place] [address] September, [facility] [address] [id number] [address] [place] [address], [place] [address] September, [facility] [address] [id number] [address] [place] [address], [place] [address] September, [facility] [address] [id number] [address] [place] [address], [place] [address] September, [facility] [address] [id number] [address] [place] [address], [place] [address] September, [facility] [address] [id number] [address] [place] [address], [place] [address] Jul, [facility] [address] [id number] [address] [place] [address], [place] [address] Jul, [facility] [address] [id number] [address] [place] [address], [place] [address] Jun, [facility] [address] [id number] [address] [place] [address], [place] [address] Jun, [facility] [address] [id number] [address] [place] [address], [place] [address] Jun, [facility] [address] [id number] [address] [place] [address], [place] [address] Jun, [facility] [address] [id number] [address] [place] [address], [place] [address] Jun, [facility] [address] [id number] [address] [place] [address], [place] [address] Jun, [facility] [address] [id number] [address] [place] [address], [place] [address] May, [facility] [address] [id number] [address] [place] [address], [place] [address] May, [facility] [address] [id number] [address] [place] [address], [place] [address] May, [facility] [address] [id number] [address] [place] [address], [place] [address] May, [facility] [address] [id number] [address] [place] [address], [place] [address] May, [facility] [address] [id number] [address] [place] [address], [place] [address] May, [facility] [address] [id number] [address] [place] [address], [place] [address] May, [facility] [address] [id number] [address] [place] [address], [place] [address] May, [facility] [address] [id number] [address] [place] [address], [place] [address] May, [facility] [address] [id number] [address] [place] [address], [place] [address] May, [facility] [address] [id number] [address] [place] [address], [place] [address] May, [facility] [address] [id number] [address] [place] [address], [place] [address] May, [facility] [address] [id number] [address] [place] [address], [place] [address] May, [facility] [address] [id number] [address] [place] [address], [place] [address] May, [facility] [address] [id number] [address] [place] [address], [place] [address] Apr, [facility] [address] [id number] [address] [place] [address], [place] [address] Apr, [facility] [address] [id number] [address] [place] [address], [place] [address] Apr, [facility] [address] [id number] [address] [place] [address], [place] [address] Apr, [facility] [address] [id number] [address] [place] [address], [place] [address] Apr, [facility] [address] [id number] [address] [place] [address], [place] [address] Apr, [facility] [address] [id number] [address] [place] [address], [place] [address] Apr, [facility] [address] [id number] [address] [place] [address], [place] [address] Apr, [facility] [address] [id number] [address] [place] [address], [place] [address] Mar, [facility] [address] [id number] [address] [place] [address], [place] [address] Mar, [facility] [address] [id number] [address] [place] [address], [place] [address] Mar, [facility] [address] [id number] [address] [place] [address], [place] [address] Mar, [facility] [address] [id number] [address] [place] [address] Mar, [facility] [address] [id number] [address] [place] [address] Dec, [facility] [address] [id number] [address] [place] [address] Dec, [facility] [address] [id number] [address] [place] [address] Dec, [facility] [address] [id number] [address] [place] [address] Dec, [facility] [address] [id number] [address] [place] [address] Dec, [facility] [address] [id number] [address] [place] [address] Nov, [facility] [address] [id number] [address] [place] [address] Nov, [facility] [address] [id number] [address] [place] [address] Nov, [facility] [address] [id number] [address] [place] [address] Oct, IMMUNIZATIONS No Known Immunizations SOCIAL HISTORY Never Assessed [place] FOR [place] [place] VITAL SIGNS MEDICATIONS Medication Instructions Dosage Frequency Start Date End Date Duration S tatus Bactrim DS 800-160 mg 1 tablet by Oral route 2 times p er day for 10 day(s) Jul, Active Bactroban 2 % 1 sosa by Topical route 2 times per day f or 14 day(s) Jul, Active Pyridium 100 mg 1 tablet by Oral route 3 times per day for 3 day(s) Dec, Active Nexium 40 mg take 1 capsule (40 mg) by oral route once daily September, Active Cymbalta 30 mg 1 capsule by Oral route 1 time per day Oct, Active RESULTS No Results PROCEDURES No Known procedures INSTRUCTIONS MEDICATIONS ADMINISTERED No Known Medications
--- OUTSIDE RECORDS SUMMARY | 2019-09-29 08:49 | XMS REPORT ---
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 Teacher Name Role Phone Migration, Doctor Unavailable Unavailable PROBLEMS Type Condition ICD9-CM Code KPU86-KH Code Onset Dates Condition S tatus SNOMED Code Problem Lumbago 724.2 Active 559053375 Problem Onychia and paronychia of toe 681.11 Active 12124359 Problem Hematuria, unspecified 599.70 Active 86472207 Problem Chest pain, unspecified 786.50 Active 68828270 Problem GERD (gastroesophageal reflux disease) K21.9 Active 992435114 Problem Pain in joint, pelvic region and thigh 719.45 Active 314367180 Problem Anxiety F41.9 Active 55348116 Problem Costochondritis 733.6 Active 6410 9004 Problem Acquired cyst of kidney 593.2 Active 422012812 Problem Blood in stool 578.1 Active 27593 9008 Problem Depressive disorder, not elsewhere classified 311 Active 89759451 Problem Insomnia G47.00 Active 939600619 ALLERGIES No Information ENCOUNTERS Encounter Location Date Diagnosis [facility] [address] [id number] [address] [place] [address] Apr, Insomnia G47.00 ; Anxiety F4 1.9 and GERD (gastroesophageal reflux disease) K21.9 [facility] [address] [facility] [id number] [address] [place] [address] Mar, [facility] [address] [facility] [id number] [address] [place] [address] Aug, [facility] [address] [facility] [id number] [address] [place] [address] Aug, [facility] [address] [facility] [id number] [address] [place] [address] Oct, [facility] [address] [facility] [id number] [address] [place] [address] Oct, [facility] [address] [id number] [facility] [place] [address] Oct, [facility] [address] [id number] [address] [place] [address], [place] [address] Oct, [facility] [address] [id number] [address] [place] [address], [place] [address] Oct, [facility] [address] [id number] [address] [place] [address], [place] [address] Oct, [facility] [address] [id number] [address] [place] [address], [place] [address] Oct, [facility] [address] [id number] [address] [place] [address], [place] [address] Oct, [facility] [address] [id number] [address] [place] [address], [place] [address] September, [facility] [address] [id number] [address] [place] [address], [place] [address] September, [facility] [address] [id number] [address] [place] [address], [place] [address] September, [facility] [address] [id number] [address] [place] [address], [place] [address] September, [facility] [address] [id number] [address] [place] [address], [place] [address] September, [facility] [address] [id number] [address] [place] [address], [place] [address] September, [facility] [address] [id number] [address] [place] [address], [place] [address] Jul, [facility] [address] [id number] [address] [place] [address], [place] [address] Jul, [facility] [address] [id number] [address] [place] [address], [place] [address] Jun, [facility] [address] [id number] [address] [place] [address], [place] [address] Jun, [facility] [address] [id number] [address] [place] [address], [place] [address] Jun, [facility] [address] [id number] [address] [place] [address], [place] [address] Jun, [facility] [address] [id number] [address] [place] [address], [place] [address] Jun, [facility] [address] [id number] [address] [place] [address], [place] [address] Jun, [facility] [address] [id number] [address] [place] [address], [place] [address] May, [facility] [address] [id number] [address] [place] [address], [place] [address] May, [facility] [address] [id number] [address] [place] [address], [place] [address] May, [facility] [address] [id number] [address] [place] [address], [place] [address] May, [facility] [address] [id number] [address] [place] [address], [place] [address] May, [facility] [address] [id number] [address] [place] [address], [place] [address] May, [facility] [address] [id number] [address] [place] [address], [place] [address] May, [facility] [address] [id number] [address] [place] [address], [place] [address] May, [facility] [address] [id number] [address] [place] [address], [place] [address] May, [facility] [address] [id number] [address] [place] [address], [place] [address] May, [facility] [address] [id number] [address] [place] [address], [place] [address] May, [facility] [address] [id number] [address] [place] [address], [place] [address] May, [facility] [address] [id number] [address] [place] [address], [place] [address] May, [facility] [address] [id number] [address] [place] [address], [place] [address] May, [facility] [address] [id number] [address] [place] [address], [place] [address] Apr, [facility] [address] [id number] [address] [place] [address], [place] [address] Apr, [facility] [address] [id number] [address] [place] [address], [place] [address] Apr, [facility] [address] [id number] [address] [place] [address], [place] [address] Apr, [facility] [address] [id number] [address] [place] [address], [place] [address] Apr, [facility] [address] [id number] [address] [place] [address], [place] [address] Apr, [facility] [address] [id number] [address] [place] [address], [place] [address] Apr, [facility] [address] [id number] [address] [place] [address], [place] [address] Apr, [facility] [address] [id number] [address] [place] [address], [place] [address] Mar, [facility] [address] [id number] [address] [place] [address], [place] [address] Mar, [facility] [address] [id number] [address] [place] [address], [place] [address] Mar, [facility] [address] [id number] [address] [place] [address], [place] [address] Mar, [facility] [address] [id number] [address] [place] [address] Mar, [facility] [address] [id number] [address] [place] [address] Dec, [facility] [address] [id number] [address] [place] [address] Dec, [facility] [address] [id number] [address] [place] [address] Dec, [facility] [address] [id number] [address] [place] [address] Dec, [facility] [address] [id number] [address] [place] [address] Dec, [facility] [address] [id number] [address] [place] [address] Nov, [facility] [address] [id number] [address] [place] [address] Nov, [facility] [address] [id number] [address] [place] [address] Nov, [facility] [address] [id number] [address] [place] [address] Oct, IMMUNIZATIONS No Known Immunizations SOCIAL HISTORY Never Assessed [place]ASON FOR VISIT [place] [place] VITAL SIGNS MEDICATIONS No Known Medications RESULTS No Results PROCEDURES No Known procedures INSTRUCTIONS MEDICATIONS ADMINISTERED No Known Medications
--- NOTE | 2019-09-29 09:22 | Diagnostic Imaging Report ---
INDICATION: Injury to the shoulder with pain anteriorly. EXAMINATION: Left shoulder 09/29/2019 3 views the shoulder FINDINGS: There is questioned deformity of the distal 1/3 of the clavicle which is age indeterminant. Correlate for point tenderness to the clavicle which may suggest an acute somewhat overlapping or foreshortened fracture. The acromioclavicular joint itself is intact. The humerus intact. Visualized lungs demonstrate no acute abnormality. IMPRESSION: Age indeterminate deformity distal one third of the clavicle. Correlate with any point tenderness. Dictated by: Dictated on workstation # [id number]
[2019-09-29] MEDS ORDERED: IBUP-1780 PO (09:33)
[2019-09-29] MEDS ORDERED: HYDR-83 PO (09:33)
== END 2019-09-29 09:38 | disposition home or self-care (01) ==
LOC: EDUNIT# 08:41 → ER FS 08:42
DX: S40.012A Contusion of left shoulder, initial encounter (principal); Z82.49 Family history of ischemic heart disease and other diseases of the circulatory system; W22.8XXA Striking against or struck by other objects, initial encounter; Y92.812 Truck as the place of occurrence of the external cause
CPT/HCPCS: 73030

== ENCOUNTER 2022-06-29 05:50 | Outpatient (CLI) | payer OTHER ==
[~2022-06-29] VITALS: Ht 177.8 cm; Wt 84.1 kg
[~2022-06-29 05:50] MED LIST changes: +ACHD5005 PO; -CIPR500T4 PO; +CIPR500T5 PO; +IBUP-1780 PO
[2022-06-29] MEDS ORDERED: PANT40TA52 PO (16:12)
== END 2022-06-29 16:15 | disposition home or self-care (01) ==
LOC: PREOP 05:50
PROVIDERS: ATTEND Surgery
DX: Z01.818 Encounter for other preprocedural examination (principal)

== ENCOUNTER 2022-07-25 07:23 | Day surgery (SDC) | payer OTHER ==
[~2022-07-25] VITALS: Ht 177.8 cm; Wt 84.1 kg
[~2022-07-25 07:23] MED LIST changes: +PANT40TA52 PO
[2022-07-25] MEDS ORDERED: LACTATED RINGERS 1,000 ML IV STA (07:32)
[2022-07-25] MEDS ORDERED: HURRICAINE EXT TUBE (BENZOCAINE) XX PRN (07:45)
[2022-07-25 07:48] VITALS: BP 120/80
[2022-07-25] MEDS ORDERED: PROPOFOL INJECTION 50 ML IV ONE (08:25)
[2022-07-25] MEDS ORDERED: MIDAZOLAM 2 MG/2 ML (VERSED) VIAL ONE (08:25)
[2022-07-25 08:55] VITALS: BP 102/64
[2022-07-25 09:00] VITALS: BP 99/65
[2022-07-25 09:05] VITALS: BP 99/65
--- NOTE | 2022-07-25 09:06 | Progress Note-Post Operative ---
Post-Operative Progess Note Surgeon (s)/General Surgeon (s) Surgeon BRANDO GARCÍA DO General Surgeon: Duc Meléndez, MSIII Pre-Operative Diagnosis GERD, Hematochezia Post-Operative Diagnosis Portillo's Esophagus Hiatal hernia Gastritis Colitis Diverticula int hemorrhoids Procedure & Operative Findings Date of Procedure 07/25/22 Procedure Performed/Findings PROCEDURE NOTE: After informed consent was obtained, the patient was brought to the endoscopy suite, placed in bed in left lateral decubitus position. He was administered IV sedation by the NETWORK MANAGER who then monitored vitals the entire time, heart rate, blood pressure and pulse ox and the scope was inserted down the mouth through the esophagus into the stomach. On the way down, noted severe esophagitis, took a picture, pushed into the stomach, pushed past the antrum into the duodenum. Duodenum looked good. Pulled back, noted some gastritis and did a biopsy of the antrum. Then retroflexed the scope, saw a hiatal hernia, took a picture of this and then did a biopsy of the body of the stomach. Next, pulled the scope into the GE junction, took another picture of the hiatal hernia and then did a biopsy of the GE junction. I actually did 3 biopsies here, it looked almost ulcerated. Pushed the scope back into the stomach, suctioned all the air out of the stomach. At this point pulled the scope up the esophagus and out the mouth. Switched camera, switched gloves, went down below and started the colonoscopy. Immediately upon entering saw very severe colitis and took a picture. Started pushing up and past the rectum it was not as ulcerated but there were small spots and saw a diverticula. Took pictures of all of this and pushed all the way to about 110 cm. Pushed into the cecum, took a picture of appendiceal orifice and noted the ileocecal valve. Did a biopsy of possible polyp at appendiceal opening. Then slowly withdrew the scope insufflating to look circumferentially at the cabral starting in the cecum, up the ascending colon to the hepatic flexure, then down the transverse colon to the splenic flexure, into the descending colon down into the sigmoid and then into the rectal vault and retroflexed the scope. I took some random biopsies in the colon on the way out and then two biopsied in the rectum; looked almost like Ulcerative Colitis. Took a picture of the internal hemorrhoids. The patient tolerated the procedure and he recovered in the endoscopy suite. Recommended for repeat colonoscopy in 1 year to recheck this colitis. Anesthesia Type IV sedation by NETWORK MANAGER Estimated Blood Loss Estimated blood loss (mL): scant Specimens/Packing Specimens Removed antral bx body of stomach bx GE jxn bx Appendiceal opening bx Desc colon bx Sigmoid colon bx Rectal bx BRANDO GARCÍA DO Jul 25, 2022 09:03
[2022-07-25 09:10] VITALS: BP 88/61
[2022-07-25] MEDS ORDERED: SUCR1TAB36 PO (09:35)
--- NOTE | 2022-07-25 09:36 | Endoscopy Discharge Instruct ---
Endo Procedure/Findings Findings 1.: Hiatal Hernia, Gastritis 2.: Portillo's Esophagus 3.: Colitis 4.: Diverticulosis, Internal Hemorrhoids Discharge Instructions - Activity: You might feel a little sleepy until tomorrow. This is due to the medicine you received to relax you. Until tomorrow, you should: NOT drive a car, operate machinery or power tools. NOT drink any alcoholic beverages. NOT make any important decisions or sign importortant papers. Do not return to work until tomorrow, unless otherwise instructed. Resume previous activities tomorrow. Diet: Start by taking liquids. If you tolerate liquids, advance to solid food. 1.: EGD in 1 year 2.: Colonoscopy in 1 year Notify Physician - If you experience excessive bleeding, unusual abdominal pain, fever, or chest pain, contact your doctor immediately. BRANDO GARCÍA DO Jul 25, 2022 09:36
[2022-07-25 09:55] VITALS: BP 109/84
--- NOTE | 2022-07-25 12:13 | Anesthesia-General Post-Op ---
MAC Patient Condition Mental Status/LOC: Same as Preop Cardiovascular: Satisfactory Nausea/Vomiting: Absent Respiratory: Satisfactory Pain: Controlled Complications: Absent Post Op Complications Complications None Follow Up Care/Instructions Patient Instructions None needed. Anesthesiology Discharge Order Discharge Order Patient is doing well, no complaints, stable vital signs, no apparent adverse anesthesia problems. No complications reported per nursing. ERNI CRUZ CRNA Jul 25, 2022 12:13
== END 2022-07-25 09:58 | disposition home or self-care (01) ==
LOC: ENDO 07:23
PROVIDERS: ATTEND Surgery
DX: K52.9 Noninfective gastroenteritis and colitis, unspecified (principal); K62.89 Other specified diseases of anus and rectum; K21.00 Gastro-esophageal reflux disease with esophagitis, without bleeding; K22.70 Barrett's esophagus without dysplasia; K44.9 Diaphragmatic hernia without obstruction or gangrene; K57.30 Diverticulosis of large intestine without perforation or abscess without bleeding; K64.8 Other hemorrhoids; K92.1 Melena

== ENCOUNTER → 2023-03-29 | Outpatient (CLI) | payer OTHER ==
[~2023-03-29] MED LIST changes: +HOLD METFORMIN - RECEIVED CONTRAST 20 ML VIAL IV SCH; +SUCR1TAB36 PO
[2023-03-29] MEDS: IOHEXOL 350 MG/ML 100 ML (OMNIPAQUE 350) VIAL IV ONE (12:21)
[2023-03-29] MEDS: NS 100 ML (IVPB) BAG IV ONE (12:21)
[2023-03-29] MEDS: CATHETER FLUSH 10 ML SYR IV PRN (12:21)
--- NOTE | 2023-03-29 14:03 | Diagnostic Imaging Report ---
PROCEDURE: CT abdomen and pelvis with contrast. TECHNIQUE: Multiple contiguous axial images were obtained through the abdomen and pelvis after administration of intravenous contrast. Auto Exposure Controls were utilized during the CT exam to meet ALARA standards for radiation dose reduction. All CT scans use one or more of the following dose optimizing techniques: automated exposure control, MA and/or KvP adjustment based on patient size and exam type or iterative reconstruction. INDICATION: Left upper quadrant abdominal pain for several months. FINDINGS: The lung bases are clear. The liver is unremarkable. Gallbladder is contracted. There is no biliary ductal dilatation. Pancreas and spleen are unremarkable. No adrenal mass is detected. The right kidney is unremarkable. There is a low-attenuation lesion in the upper pole of the left kidney, which is bilobed measuring 2.4 x 1.7 cm. Overall density measurements are greater than water. This is in the same location as the hyperdense lesion noted on CT study dating back to 04/24/2013. No calculi are detected. There is no hydronephrosis. Aorta is nonaneurysmal. Small and large bowel loops are normal in caliber. There is no obstruction. There is no ascites. The bladder and prostate are unremarkable. There are small fat-containing inguinal hernias bilaterally. The bony structures demonstrate some sclerosis of the SI joints bilaterally consistent with sacroiliitis. IMPRESSION: 1. Bilobed lesion in the upper pole of the left kidney. This has increased in size when compared with the prior exam from 2012. This may represent a complex cyst such as a hemorrhagic cyst, but due to the overall increase in size, follow-up would be recommended to confirm stability. The remainder of the study is unremarkable. Dictated by: Dictated on workstation # [id number]
== END ==
LOC: RAD FS 11:51
PROVIDERS: ATTEND Registered Nurse Emergency
DX: R10.33 Periumbilical pain (principal); R35.0 Frequency of micturition; R10.12 Left upper quadrant pain
CPT/HCPCS: 74177; Q9967

== ENCOUNTER 2023-04-24 11:56 | Emergency (ER) | payer OTHER ==
[~2023-04-24] VITALS: Ht 177 cm; Wt 82.8 kg
[~2023-04-24 11:56] MED LIST changes: -HOLD METFORMIN - RECEIVED CONTRAST 20 ML VIAL IV SCH
[2023-04-24 12:04] VITALS: BP 133/87
[2023-04-24] MEDS ORDERED: ONDANSETRON 4 MG ORAL DISSOLVE TABLET SL STA (12:04)
--- NOTE | 2023-04-24 12:12 | ED GI ---
General Chief Complaint: Abdominal/GI Problems Stated Complaint: V/D; BLACK STOOL History of Present Illness Date Seen by Provider: Apr 24, 2023 Time Seen by Provider: 12:06 Initial Comments 42-year-old male presents because he like to be checked for influenza and COVID. Patient reports he went to urgent care because got little nausea vomiting diarrhea just some generalized malaise just not feeling well and wanted to be checked for the flu and COVID. He reports that about a month ago he had a negative CT scan. That his stools little dark but he also takes Pepto. He tried to inform urgent care that all he was wanting was tested because his symptoms started last night but they sent him out here. Upon visiting with him he just wants a limited evaluation for influenza and COVID. Allergies and Home Medications Allergies Coded Allergies: No Known Drug Allergies (Unverified , 05/26/13) Patient Home Medication List Home Medication List Reviewed: Yes Pantoprazole Sodium (Pantoprazole Sodium) 40 Mg Tablet.dr, 40 MG PO BID, (Reported) Entered as Reported by: SWETHA FUENTES on 06/29/22 1612 Sucralfate (Carafate) 1 Gram Tablet, 1 GM PO ACHS Prescribed by: BRANDO GARCÍA on 07/25/22 0935 Review of Systems Review of Systems Constitutional: see HPI Respiratory: No Symptoms Reported Cardiovascular: No Symptoms Reported Gastrointestinal: Denies Abdomen Distended, Denies Abdominal Pain; Diarrhea, Nausea, Vomiting Genitourinary: No Symptoms Reported Musculoskeletal: no symptoms reported Skin: no symptoms reported Psychiatric/Neurological: No Symptoms Reported Past Ieiqbqt-Vqszgs-Flnzqh Hx Patient Social History Tobacco Use?: No Substance use?: Yes Substance type: Marijuana Substance frequency: Couple times a week Alcohol Use?: Yes Alcohol Frequency: Daily Immunizations Up To Date Tetanus Booster (TDap): Unknown PED Vaccines UTD: No First/Initial COVID19 Vaccinat: no Second COVID19 Vaccination Reinier: no Third COVID19 Vaccination Date: no Seasonal Allergies Seasonal Allergies: No Past Medical History Surgeries: No Respiratory: No Currently Using CPAP: No Currently Using BIPAP: No Cardiac: No Neurological: No Reproductive Disorders: No Sexually Transmitted Disease: No HIV/AIDS: No Genitourinary: No Gastrointestinal: Yes (hematochezia) Gastroesophageal Reflux Musculoskeletal: Yes Degenerate Disk Disease, Chronic Back Pain Endocrine: No HEENT: No Cancer: No Psychosocial: No Integumentary: No Recent Skin Changes Blood Disorders: No Adverse Reaction/Blood Tranf: No Family Medical History Arthritis G8 SISTER Headache disorder 19 MOTHER Hypercholesterolemia 19 MOTHER Hypertension 19 MOTHER No Pertinent Family Hx Physical Exam Vital Signs Vital Signs - First Documented 04/24/23 12:04 Temp 36.3 Pulse 99 Resp 16 B/P (MAP) 133/87 (102) Pulse Ox 100 O2 Delivery Room Air Capillary Refill : Height/Weight/BMI Height: 5'10.00" Weight: 160lbs. 2.0oz. 72.093519au; 26.60 BMI Method:Stated General Appearance: WD/WN, no apparent distress Respiratory: lungs clear, normal breath sounds Cardiovascular: normal peripheral pulses, regular rate, rhythm Gastrointestinal: non tender, soft Neurologic/Psychiatric: alert, normal mood/affect, oriented x 3 Skin: normal color, warm/dry Progress/Results/Core Measures Results/Orders Lab Results Laboratory Tests Test 04/24/23 12:09 Range/Units Influenza Type A (RT-PCR) Not Detected Not Detecte Influenza Type B (RT-PCR) Not Detected Not Detecte SARS-CoV-2 RNA (RT-PCR) Not Detected Not Detecte My Orders Orders - JAELYN MEDELLIN L DO Influenza A And B By Pcr (04/24/23 12:04) Covid 19 Inhouse Test (04/24/23 12:04) Ondansetron Oral Dissolve Tab (Ondanset (04/24/23 12:04) Vital Signs/I&O 04/24/23 12:04 Temp 36.3 Pulse 99 Resp 16 B/P (MAP) 133/87 (102) Pulse Ox 100 O2 Delivery Room Air Progress Progress Note : Progress Note Patient's labs were ordered reviewed and interpreted by me. He is negative for both influenza and COVID. I discussed findings with him. At this time he would like to be discharged home and will follow-up with his primary care provider if symptoms or not improving over the next couple days. He was did request a work note for couple days in case he is not feeling better which I did provide for him. Patient was stable and discharged as requested. Departure Impression Primary Impression: Gastroenteritis and colitis, toxic Disposition: 01 HOME, SELF-CARE Condition: Stable Departure-Patient Inst. Referrals: ANTONI SEGUNDO APRN (PCP) Primary Care Physician NIKOS MONREAL MD (Family) Primary Care Physician Patient Instructions: CLEAR LIQUID DIET ADULT/CHILD, [id number] Add. Discharge Instructions: All discharge instructions reviewed with patient and/or family. Voiced u nderstanding. Work/School Note: Work Release Form Date Seen in the Emergency Department: Apr 24, 2023 Return to Work: Apr 26, 2023 JAELYN MEDELLIN DO Apr 24, 2023 12:12
== END 2023-04-24 12:55 | disposition home or self-care (01) ==
LOC: EDUNIT# 11:56 → ER FS 11:57
DX: K52.1 Toxic gastroenteritis and colitis (principal)
CPT/HCPCS: 87636